=== PATIENT | male | born 1930 | race Caucasian/White ===

== ENCOUNTER 2016-07-27 14:38 | Outpatient (CLI) | payer MEDICARE, BC | END 2016-07-27 14:39 | disposition home or self-care (01) | DX: I48.91 Unspecified atrial fibrillation (principal) ==

== ENCOUNTER 2016-08-17 16:06 | Outpatient (CLI) | payer MEDICARE, BC | END 2016-08-17 16:07 | disposition home or self-care (01) | DX: I48.91 Unspecified atrial fibrillation (principal) ==

== ENCOUNTER 2016-09-06 15:29 | Outpatient (CLI) | payer MEDICARE, BC | END 2016-09-06 15:30 | disposition home or self-care (01) | DX: I48.91 Unspecified atrial fibrillation (principal) ==

== ENCOUNTER 2016-09-28 13:36 | Outpatient (CLI) | payer MEDICARE, BC | END 2016-09-28 13:37 | disposition home or self-care (01) | DX: I48.91 Unspecified atrial fibrillation (principal) ==

== ENCOUNTER 2016-10-12 08:00 | Outpatient (CLI) | payer MEDICARE, BC | END 2016-10-12 08:01 | disposition home or self-care (01) | DX: I48.91 Unspecified atrial fibrillation (principal) ==

== ENCOUNTER 2016-11-05 14:25 | Outpatient (CLI) | payer MEDICARE, BC | END 2016-11-05 14:26 | disposition home or self-care (01) | DX: I48.91 Unspecified atrial fibrillation (principal) ==

== ENCOUNTER 2016-11-27 12:25 | Outpatient (CLI) | payer MEDICARE, BC | END 2016-11-27 12:26 | disposition home or self-care (01) | LOC: LAB 12:25 | PROVIDERS: ATTEND Pharmacist | DX: I48.91 Unspecified atrial fibrillation (principal) | CPT/HCPCS: 85610 ==

== ENCOUNTER 2016-12-17 13:42 | Outpatient (CLI) | payer MEDICARE, BC | END 2016-12-17 13:43 | disposition home or self-care (01) | LOC: LAB 13:42 | PROVIDERS: ATTEND Pharmacist | DX: I48.91 Unspecified atrial fibrillation (principal) | CPT/HCPCS: 85610 ==

== ENCOUNTER 2017-01-02 14:26 | Outpatient (CLI) | payer MEDICARE, BC | END 2017-01-02 14:27 | disposition home or self-care (01) | LOC: LAB 14:26 | PROVIDERS: ATTEND Pharmacist | DX: I48.91 Unspecified atrial fibrillation (principal) | CPT/HCPCS: 85610 ==

== ENCOUNTER 2017-01-17 13:20 | Outpatient (CLI) | payer MEDICARE, BC | END 2017-01-17 13:21 | disposition home or self-care (01) | LOC: LAB 13:20 | PROVIDERS: ATTEND Pharmacist | DX: I48.91 Unspecified atrial fibrillation (principal) | CPT/HCPCS: 85610 ==

== ENCOUNTER 2017-05-30 15:06 | Outpatient (CLI) | payer MEDICARE, BC | END 2017-05-30 15:07 | disposition home or self-care (01) | LOC: LAB 15:06 | PROVIDERS: ATTEND Pharmacist | DX: I48.91 Unspecified atrial fibrillation (principal) | CPT/HCPCS: 85610 ==

== ENCOUNTER 2017-07-09 13:01 | Outpatient (CLI) | payer MEDICARE, BC | END 2017-07-09 13:02 | disposition home or self-care (01) | LOC: LAB 13:01 | PROVIDERS: ATTEND Pharmacist | DX: I48.91 Unspecified atrial fibrillation (principal) | CPT/HCPCS: 85610 ==

== ENCOUNTER 2017-07-26 13:02 | Outpatient (CLI) | payer MEDICARE, BC | END 2017-07-26 13:03 | disposition home or self-care (01) | LOC: LAB 13:02 | PROVIDERS: ATTEND Pharmacist | DX: I48.91 Unspecified atrial fibrillation (principal) | CPT/HCPCS: 85610 ==

== ENCOUNTER 2017-08-20 14:49 | Outpatient (CLI) | payer MEDICARE, BC ==
[2017-08-20 15:54] LABS: ALBUMIN 3.7 g/dL (3.2-5.5); ALBUMIN/GLOBULIN RATIO 1.5 (1.0-2.2); ALKALINE PHOSPHATASE 63 IU/L (42-121); ALT ALANINE AMINOTRANSFERASE 17 IU/L (10-60); AST ASPARTATE AMINOTRANSFERASE 25 IU/L (10-42); BILIRUBIN,TOTAL 0.7 mg/dL (0.2-1.0); BUN - BLOOD UREA NITROGEN 26 mg/dL (6-20); CALCIUM 8.8 mg/dL (8.5-10.3); CARBON DIOXIDE - CO2 26 mmol/L (21-32); CHLORIDE 101 mmol/L (101-111); CHOL/HDL RATIO 2.9 (<5.0); CHOLESTEROL 134 mg/dL; CREATININE 0.9 mg/dL (0.6-1.2); GFR - MDRD 80 (>89); GLUCOSE 93 mg/dL (70-100); HDL CHOLESTEROL 46 mg/dL; SODIUM 136 mmol/L (135-145); TOTAL PROTEIN 6.1 g/dL (6.7-8.2)
[2017-08-20 16:14] LABS: INR 4.4 (0.8-1.2); PT - PROTHROMBIN TIME 46.5 secs (9.9-12.6)
[2017-08-20 16:16] LABS: BASOPHILS % (AUTO) 0.6 %; EOSINOPHILS # (AUTO) 0.1 10^3/uL (0.0-0.7); EOSINOPHILS % (AUTO) 0.9 %; HGB - HEMOGLOBIN 13.1 g/dL (14.0-18.0); LYMPHOCYTES # (AUTO) 1.8 10^3/uL (1.5-3.5); LYMPHOCYTES % (AUTO) 27.6 %; MEAN CORPUSCULAR HEMOGLOBIN 34.8 pg (27.0-31.0); MEAN CORPUSCULAR HGB CONC 33.9 g/dL (32.0-36.0); MEAN CORPUSCULAR VOLUME 102.7 fL (80.0-94.0); MONOCYTES # (AUTO) 0.5 10^3/uL (0.0-1.0); MONOCYTES % (AUTO) 8.1 %; NEUTROPHILS % (AUTO) 62.8 %; PLT - PLATELET COUNT 187 10^3/uL (130-450); RED BLOOD COUNT 3.75 10^6/uL (4.70-6.10); RED CELL DISTRIBUTION WIDTH 13.9 % (12.0-15.0); WHITE BLOOD COUNT 6.4 x10^3/uL (4.8-10.8)
[2017-08-20 16:18] LABS: LDL CHOLESTEROL,DIRECT 84 mg/dL; LDLD/HDL RATIO 1.8 (<3.6)
[2017-08-20 16:58] LABS: PLATELET ESTIMATE, MANUAL NORMAL (130-450,000) (NORMAL); RBC MORPHOLOGY (MULTIPLE) NORMAL APPEARANCE (NORMAL)
== END 2017-08-20 14:50 | disposition home or self-care (01) ==
LOC: LAB 14:49
PROVIDERS: ATTEND Pharmacist
DX: I48.91 Unspecified atrial fibrillation (principal); E78.5 Hyperlipidemia, unspecified
CPT/HCPCS: 36415; 80053; 80061; 83721; 84443; 85025; 85610

== ENCOUNTER 2017-09-05 14:49 | Outpatient (CLI) | payer MEDICARE, BC | END 2017-09-05 14:50 | disposition home or self-care (01) | LOC: LAB 14:49 | PROVIDERS: ATTEND Pharmacist | DX: I48.91 Unspecified atrial fibrillation (principal) | CPT/HCPCS: 85610 ==

== ENCOUNTER 2017-09-16 12:19 | Outpatient (CLI) | payer MEDICARE, BC | END 2017-09-16 12:20 | disposition EMS.NT | LOC: EMS 12:19 | PROVIDERS: ATTEND Surgery | DX: Z03.89 Encounter for observation for other suspected diseases and conditions ruled out (principal); W18.39XA Other fall on same level, initial encounter; Y92.009 Unspecified place in unspecified non-institutional (private) residence as the place of occurrence of the external cause ==

== ENCOUNTER 2017-09-17 17:20 | Outpatient (CLI) | payer MEDICARE, BC | END 2017-09-17 17:21 | disposition critical access hospital (66) | LOC: EMS 17:20 | PROVIDERS: ATTEND Surgery | DX: R05 Cough (principal); R50.9 Fever, unspecified | CPT/HCPCS: A0425; A0429 ==

== ENCOUNTER 2017-09-17 17:31 | Inpatient (IN) | payer MEDICARE, BC ==
--- NOTE | 2017-09-17 17:51 | ED Physician Documentation ---
PD HPI URI - Stated complaint Stated Complaint: PHLEGM - Chief complaint Chief Complaint: Resp - History obtained from History obtained from: Patient, EMS - History of Present Illness Timing - onset: How many days ago (4-5) Timing duration: Days (4-5) Timing details: Gradual onset, Still present Associated symptoms: Fever, Productive cough, NVD (nausea and less intake, but no vomiting nor diarrhea), Other (general weakness with falling). No: Hemoptysis, Bilateral edema Contributing factors: No: Sick contact, Travel, Immunocompromised, COPD / asthma Improves by: Rest Worsened by: Activity Similar symptoms before: Has not had sx before Recently seen: Not recently seen Review of Systems Constitutional: reports: Fever, Chills, Myalgias, Fatigue Eyes: denies: Decreased vision Nose: denies: Rhinorrhea / runny nose, Congestion Throat: denies: Sore throat Cardiac: denies: Chest pain / pressure Respiratory: reports: Dyspnea, Cough, Wheezing GI: reports: Nausea. denies: Abdominal Pain, Vomiting, Diarrhea : denies: Dysuria, Frequency Skin: reports: Abrasion (s) (left eyebrow) Neurologic: reports: Generalized weakness (resulting in falling several times the past few days.), Near syncope, Confused (at times), Head injury (fell from weakness and struck head a few times in past few days). denies: Focal weakness , Numbness, Syncope, Altered mental status Endocrine: denies: Weight loss Immunocompromised: denies: Immunocompromised PD PAST MEDICAL HISTORY - Past Medical History Cardiovascular: Atrial fibrillation Respiratory: None Neuro: None Endocrine/Autoimmune: None : Benign prostate hypertrophy - Past Surgical History Past Surgical History: Yes Cardiovascular: Pacemaker - Present Medications Home Medications: Ambulatory Orders Medication Instructions Recorded Confirmed Tamsulosin [Flomax] 0.4 mg PO DAILY 06/08/13 06/08/13 Warfarin Sodium [Coumadin] 2.5 mg PO 06/08/13 06/08/13 Finasteride 0 mg 04/06/16 - Allergies Allergies/Adverse Reactions: Allergies Allergy/AdvReac Type Severity Reaction Status Date / Time No Known Drug Allergies Allergy Verified 09/17/17 17:36 - Living Situation Living Situation: reports: With spouse/s.o. Living Arrangement: reports: At home (he does his own ADLs, goes shopping, pushes his 's wheelchair around, is quite capable at home. ) - Social History Does the pt smoke?: No Smoking Status: Never smoker Does the pt drink ETOH?: No Does the pt have substance abuse?: No - Family History Family history: reports: Non contributory - Immunizations Immunizations are current?: Yes PD ED PE NORMAL - Vitals Vital signs reviewed: Yes - General General: Alert and oriented X 3, Well developed/nourished - HEENT HEENT: Ears normal, Pharynx benign, Other (abrasion left eyebrow area, healing without signs of infection. ). No: Moist mucous membranes - Neck Neck: Supple, no meningeal sign, No adenopathy - Cardiac Cardiac: RRR, No murmur, Other (pacemaker noted left chest) - Respiratory Respiratory: No: Clear bilaterally (coarse sounds right side. Mild exp wheezing noted. ) - Abdomen Abdomen: Normal bowel sounds, Soft, Non tender - Male Male : Deferred - Rectal Rectal: Deferred - Back Back: No CVA TTP - Derm Derm: Warm and dry. 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, No motor deficit, Normal speech Eye Opening: To Voice Motor: Obeys Commands Verbal: Oriented GCS Score: 14 - Psych Psych: No: Normal affect (somewhat flat) Results - Vitals Vitals: Vital Signs - 24 hr 09/17/17 09/17/17 09/17/17 17:33 19:35 20:18 Temperature 37.3 C 37.2 C Heart Rate 63 62 63 Respiratory 20 16 20 Rate Blood Pressure 131/71 H 139/74 H O2 Saturation 96 99 Oxygen O2 Source Room air - Labs Labs: Microbiology 09/17/17 19:40 Respiratory Culture - Preliminary Sputum Laboratory Tests 09/17/17 09/17/17 09/17/17 19:05 19:05 19:05 WBC 10.3 RBC 3.81 L Hgb 13.4 L Hct 38.7 L MCV 101.6 H MCH 35.1 H MCHC 34.6 RDW 14.1 Plt Count 173 MPV 8.8 Neut # 9.4 H Lymph # 0.3 L Callahan # 0.5 Eos # 0.0 Baso # 0.0 Absolute Nucleated RBC 0.00 Nucleated RBC % 0.0 PT 26.2 H INR 2.4 H Sodium 127 L Potassium 4.7 Chloride 93 L Carbon Dioxide 24 Anion Gap 10.0 BUN 22 H Creatinine 0.8 Estimated GFR (MDRD) 92 Glucose 153 H Lactic Acid Calcium 8.7 Magnesium 2.0 Total Bilirubin 0.5 AST 79 H ALT 50 Alkaline Phosphatase 47 B-Natriuretic Peptide Total Protein 6.5 L Albumin 3.3 Globulin 3.2 Albumin/Globulin Ratio 1.0 Lipase 22 Influenza A (Rapid) Influenza B (Rapid) Influenza Types A,B Ag 09/17/17 09/17/17 09/17/17 19:05 19:05 19:30 WBC RBC Hgb Hct MCV MCH MCHC RDW Plt Count MPV Neut # Lymph # Callahan # Eos # Baso # Absolute Nucleated RBC Nucleated RBC % PT INR Sodium Potassium Chloride Carbon Dioxide Anion Gap BUN Creatinine Estimated GFR (MDRD) Glucose Lactic Acid 1.3 Calcium Magnesium Total Bilirubin AST ALT Alkaline Phosphatase B-Natriuretic Peptide 545 H Total Protein Albumin Globulin Albumin/Globulin Ratio Lipase Influenza A (Rapid) Negative Influenza B (Rapid) Negative Influenza Types A,B Ag - - Rads (name of study) chest xray Radiology: Prelim report reviewed, EMP read contemporaneously (right upper lobe consolidation c/w pneumonia. No effusion. No signs of failure. ) PD MEDICAL DECISION MAKING - ED course Complexity details: reviewed results, re-evaluated patient (improved color and a bit more animated after IV fluids and neb. However still generally weak and appears to be work to just sit up in bed. Sats are good. BP is good. ), considered differential, d/w patient, d/w organizational research consultant (Hospitalist) Departure - Departure Disposition: 66 [facility] DC/Xfer Clinical Impression: Weakness generalized, Dehydration, Anticoagulant long-term use Falls Qualifiers: Encounter type: initial encounter Qualified Code(s): W19.XXXA - Unspecified fall, initial encounter Pneumonia Qualifiers: Pneumonia type: due to unspecified organism Laterality: right Lung location: upper lobe of lung Qualified Code(s): J18.1 - Lobar pneumonia, unspecified organism
[2017-09-17] MEDS ORDERED: SODIUM CHLORIDE 0.9% 1,000 ML IV ONE ×3 (18:51→20:01)
[2017-09-17] MEDS ORDERED: ONDANSETRON 4 MG/2 ML VIAL IVP STA (18:51)
[2017-09-17] MEDS ORDERED: ALBUTEROL NEB 2.5 MG/3 ML INH STA (18:53)
[2017-09-17 19:18] LABS: INR 2.4 (0.8-1.2); PT - PROTHROMBIN TIME 26.2 secs (9.9-12.6)
[2017-09-17 19:19] LABS: HGB - HEMOGLOBIN 13.4 g/dL (14.0-18.0); LYMPHOCYTES # (AUTO) 0.3 10^3/uL (1.5-3.5); LYMPHOCYTES % (AUTO) 3.1 %; MEAN CORPUSCULAR HEMOGLOBIN 35.1 pg (27.0-31.0); MEAN CORPUSCULAR HGB CONC 34.6 g/dL (32.0-36.0); MEAN CORPUSCULAR VOLUME 101.6 fL (80.0-94.0); MEAN PLATELET VOLUME 8.8 fL (7.4-11.4); MONOCYTES # (AUTO) 0.5 10^3/uL (0.0-1.0); MONOCYTES % (AUTO) 5.2 %; NEUTROPHILS # (AUTO) 9.4 10^3/uL (1.5-6.6); NEUTROPHILS % (AUTO) 91.7 %; PLT - PLATELET COUNT 173 10^3/uL (130-450); RED BLOOD COUNT 3.81 10^6/uL (4.70-6.10); RED CELL DISTRIBUTION WIDTH 14.1 % (12.0-15.0); WHITE BLOOD COUNT 10.3 x10^3/uL (4.8-10.8)
[2017-09-17 19:22] LABS: ALBUMIN 3.3 g/dL (3.2-5.5); BILIRUBIN,TOTAL 0.5 mg/dL (0.2-1.0); CALCIUM 8.7 mg/dL (8.5-10.3); CREATININE 0.8 mg/dL (0.6-1.2); TOTAL PROTEIN 6.5 g/dL (6.7-8.2)
--- NOTE | 2017-09-17 19:43 | XRAY Report ---
EXAM: CHEST RADIOGRAPHY EXAM DATE: 09/17/2017 07:30 PM. CLINICAL HISTORY: Cough and fever. COMPARISON: 06/19/2016. TECHNIQUE: 2 views. FINDINGS: Lungs/Pleura: Prominent infiltration in the right upper lobe. Otherwise clear. No effusion or pneumot horax. Mediastinum: Normal heart size, unchanged. Masslike fullness of right hilum. 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 Scoliosis with degenerative changes. IMPRESSION: 1. Right upper lobe infiltrate. 2. Right hilar fullness; this may be secondary to adjacent pneumonia with lymphadenitis. Follow-up is recommended to confirm resolution and exclude other underlying lesions. [facility] Referring Provider Line: [phone] SITE ID: [id number]
[2017-09-17] MEDS ORDERED: AZITHROMYCIN INJ 500 MG in SODIUM CHLORIDE 0.9% 250 ML IV STA (19:45)
[2017-09-17] MEDS ORDERED: cefTRIAXone 1 GM VIAL IVP STA (19:45)
--- NOTE | 2017-09-17 19:53 | CT Preliminary Report ---
Exam: CT HEAD W/O IMPRESSION: Generalized age-related cortical atrophic changes without evidence of acute intracranial abnormality. [facility] SITE ID: [id number]
--- NOTE | 2017-09-17 19:55 | CT Report ---
EXAM: CT HEAD EXAM DATE: 09/17/2017 07:26 PM. CLINICAL HISTORY: Multiple falls over the last 5 days. Posterior head trauma. Headache. Patient is on Coumadin. COMPARISON: None. TECHNIQUE: Multiaxial CT images were obtained from the foramen magnum to the vertex. Reformats: Coron al. IV contrast: None. In accordance with CT protocol optimization, one or more of the following dose reduction techniques w ere utilized for this exam: automated exposure control, adjustment of mA and/or KV based on patient s ize, or use of iterative reconstructive technique. FINDINGS: Parenchyma: No intraparenchymal hemorrhage. No evidence of mass, midline shift, or CT findings of acu te infarction. Pacheco-white differentiation is distinct. Diffuse chronic microangiopathic white matter changes are evident. Extraaxial Spaces: Normal for age. No subdural or epidural collections identified. Ventricles: The ventricles and cortical sulci are enlarged, consistent with age-related tissue loss. Sinuses and orbits: Imaged paranasal sinuses, orbits, and mastoids show no significant abnormality. Bones: No evidence of fracture or calvarial defect. Other: None. IMPRESSION: Generalized age-related cortical atrophic changes without evidence of acute intracranial abnormality. [facility] Referring Provider Line: [phone] SITE ID: [id number]
[2017-09-17] MEDS ORDERED: MORPHINE 2 MG/ML CARPUJECT IVP PRN (20:45)
[2017-09-17] MEDS ORDERED: ONDANSETRON ODT 4 MG TABLET TL PRN (20:45)
[2017-09-17] MEDS ORDERED: ACETAMINOPHEN 325 MG TABLET PO PRN (20:45)
[2017-09-17] MEDS ORDERED: SODIUM CHLORIDE FLUSH 0.9% 10 ML SYRINGE IVP PRN (20:45)
[2017-09-17] MEDS ORDERED: TEMAZEPAM 15 MG CAPSULE PO PRN (20:45)
[2017-09-17] MEDS ORDERED: ALBUTEROL NEB 2.5 MG/3 ML INH PRN (22:52)
[2017-09-17] MEDS: SODIUM CHLORIDE 0.9% 1,000 ML IV SCH (23:02)
[2017-09-17] MEDS: TAMSULOSIN 0.4 MG CAPSULE PO SCH (23:02)
--- NOTE | 2017-09-17 23:16 | HISTORY & PHYSICAL EXAMINATION ---
DATE OF SERVICE: 09/17/2017 Physician: Edna Jeffers MD HISTORY OF PRESENT ILLNESS: This is an 86-year-old white male with a past medical history of BPH and chronic atrial fibrillation on Coumadin. The patient presents with 3-4 days of worsening weakness, frequent falls from dizziness and leg weakness but no syncope, a productive cough with occasional brown sputum, but no hemoptysis, a fever, with chills and myalgias, also shortness of breath with activity. The gives most of the history. The patient is lying supine in bed and does answer quickly and appropriately, but with brief answers. The remembers that one of his falls from several days ago caused him to have pain in the left hip and left knee. Another fall when he was standing in the bathtub, caused him to scrape his entire back as he was falling down against the wall. He has been compliant with his medications. 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 The patient has been unable to move her in the wheelchair and unable to drive. In the emergency room, he was found to have dehydration, hyponatremia, a significant infiltrate on chest x -ray and is being admitted for management of these. PAST MEDICAL HISTORY: BPH, chronic atrial fibrillation on Coumadin. REVIEW OF SYSTEMS: A comprehensive review of systems was performed and the pertinent positives are in the HPI, the rest are negative. FAMILY HISTORY: No inherited diseases. SOCIAL HISTORY: The patient is a nonsmoker, who never smoked, drinks no alcohol or use any drugs. 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 PHYSICAL EXAMINATION GENERAL: Cachectic white male. His eyes are closed, but he answers questions appropriately. He appears fatigued. He appears dehydrated and tired. He has poor oral dentition. VITAL SIGNS: Blood pressure 131/70, heart rate 63 in atrial fibrillation, afebrile, room air saturation 96%. HEENT: Reveals him to be disheveled. Temporal wasting is present. Oral mucosa is dry. Dentition is poor. NECK: Shows no JVD, no carotid bruits. CHEST: Good air entry diffusely without rales or rhonchi. HEART: Sounds have a 1-2/6 systolic murmur heard at the lower left sternal border. There is no RV heave. There is no gallop. ABDOMEN: Soft, scaphoid, nontender with normal bowel sounds. EXTREMITIES: Show no clubbing, cyanosis or edema. He has multiple ecchymoses over all 4 extremities. The skin is tenting. The back was not examined regarding the scrape. NEUROLOGIC: Grossly intact. LABORATORY DATA: Sodium 127, potassium 4.7, BUN 22, creatinine 0.8. Lactic acid 1.3, magnesium 2.0, AST 79, ALT 50, bilirubin normal, alkaline phosphatase normal. Troponin not detectable. BNP 545. INR 2.4. White blood count 10.3 with a left shift, hemoglobin 13.4 with an MCV of 101 and he has been running MCVs over 100 for several years. Platelet count normal at 173. Serology was negative for influenza A and B. No urinalysis was done. No EKG was done. Chest x-ray: Right upper lobe infiltrate and fullness of the right hilum and a permanent pacemaker is seen on the left side. The spine has scoliosis and degenerative changes. IMPRESSION/DIAGNOSES 1. Community-acquired pneumonia. 2. Weakness with anorexia and nausea. 3. Frequent falls with multiple ecchymoses plus left hip and left knee pain. 4. Chronic atrial fibrillation, on Coumadin with a pacemaker for backup. 5. Anemia with elevated MCV. 6. Benign prostatic hypertrophy history. 7. Abnormal chest x-ray with right hilar fullness. PLAN: Admit the patient. Begin telemetry to rule out arrhythmia or pacemaker dysfunction as the cause of the weakness or falls. Cycle troponins. Obtain an Echo. Obtain an EKG. Do blood cultures and sputum culture and also will add urinalysis with culture. Start the patient on antibiotics to cover a community-acquired pneumonia: Ceftriaxone and Zithromax. Hydrate with saline and follow his electrolytes, BUN and creatinine, BNP. Obtain B12 and folate levels regarding the high MCV anemia. Guaiac his stools. Continue his BPH meds and Coumadin, follow daily INRs while admitted. XRay his left hip and left knee. Deep venous thromboembolism prophylaxis: The patient is already anticoagulated on Coumadin with a therapeutic INR. CODE STATUS: FULL CODE. ATTESTATION: The patient is expected to be discharged or transferred to another facility within 96 hours: Yes. TD: 09/17/2017 23:15 [facility]
[2017-09-17] MEDS ORDERED: KETOROLAC 15 MG/ML VIAL IVP SCH (23:18)
[2017-09-18] MEDS: guaiFENesin 600 MG TABLET PO SCH ×3 (00:09→20:04)
[2017-09-18] MEDS: SODIUM CHLORIDE FLUSH 0.9% 10 ML SYRINGE IVP SCH ×4 (00:10→23:44)
--- NOTE | 2017-09-18 00:23 | XRAY Report ---
EXAM: LEFT HIP AND PELVIS RADIOGRAPHY EXAM DATE: 09/18/2017 12:06 AM. HISTORY: S/P fall, eval for fracture. COMPARISONS: None. TECHNIQUE: 1 view of the pelvis and 1 view of the hip. FINDINGS: Bones: Normal. No fracture or bone lesion. Joints: Mild bilateral hip joint space narrowing slightly greater on the right. No dislocation. Soft Tissues: Normal. No soft tissue swelling. IMPRESSION: No evidence of fracture or dislocation. Mild bilateral degenerative changes. [facility] Referring Provider Line: [phone] SITE ID: [id number]
--- NOTE | 2017-09-18 00:23 | XRAY Preliminary Report ---
Exam: XR HIP W/PELVIS 2-3V LT IMPRESSION: No evidence of fracture or dislocation. Mild bilateral degenerative changes. [facility] SITE ID: [id number]
--- NOTE | 2017-09-18 00:55 | XRAY Preliminary Report ---
Exam: XR KNEE 2 VIEW LT IMPRESSION: No evidence of fracture. [facility] SITE ID: [id number]
--- NOTE | 2017-09-18 00:55 | XRAY Report ---
EXAM: LEFT KNEE RADIOGRAPHY EXAM DATE: 09/18/2017 12:05 AM. CLINICAL HISTORY: S/P fall, eval for fracture. COMPARISON: None. TECHNIQUE: 2 views. FINDINGS: Bones: Normal. No fractures or bone lesions. Joints: Normal. No effusion. No subluxations. Soft Tissues: Normal. No soft tissue swelling. IMPRESSION: No evidence of fracture. [facility] Referring Provider Line: [phone] SITE ID: [id number]
[2017-09-18 06:32] LABS: BASOPHILS % (AUTO) 0.2 %; HGB - HEMOGLOBIN 12.3 g/dL (14.0-18.0); LYMPHOCYTES # (AUTO) 0.6 10^3/uL (1.5-3.5); LYMPHOCYTES % (AUTO) 6.8 %; MEAN CORPUSCULAR HEMOGLOBIN 34.6 pg (27.0-31.0); MEAN CORPUSCULAR HGB CONC 33.9 g/dL (32.0-36.0); MEAN CORPUSCULAR VOLUME 102.1 fL (80.0-94.0); MONOCYTES # (AUTO) 0.5 10^3/uL (0.0-1.0); MONOCYTES % (AUTO) 6.5 %; NEUTROPHILS # (AUTO) 7.1 10^3/uL (1.5-6.6); NEUTROPHILS % (AUTO) 86.5 %; PLT - PLATELET COUNT 166 10^3/uL (130-450); RED BLOOD COUNT 3.55 10^6/uL (4.70-6.10); WHITE BLOOD COUNT 8.2 x10^3/uL (4.8-10.8)
[2017-09-18 06:33] LABS: INR 2.4 (0.8-1.2); PT - PROTHROMBIN TIME 25.8 secs (9.9-12.6)
[2017-09-18 06:38] LABS: CALCIUM 7.9 mg/dL (8.5-10.3); CREATININE 0.8 mg/dL (0.6-1.2)
[2017-09-18 07:05] LABS: PLATELET ESTIMATE, MANUAL NORMAL (130-450,000) (NORMAL); PLATELET MORPHOLOGY 1+ LARGE PLATELETS (NORMAL); RBC MORPHOLOGY (MULTIPLE) NORMAL APPEARANCE (NORMAL)
[2017-09-18] MEDS: FAMOTIDINE 20 MG TABLET PO SCH (08:38)
[2017-09-18] MEDS: POLYETHYLENE GLYCOL 3350 17 GM PACKET PO SCH (08:38)
--- NOTE | 2017-09-18 09:25 | PROVIDER PROGRESS NOTE ---
Subjective - Prog Note Date Prog Note Date: 09/18/17 Prog Note Time: 09:25 - Subjective Pt reports feeling: No change Subjective: Patient is still confused and does not call for help to use the restroom. He denies SOB, chest pain, N/V or a new cough. Current Medications - Current Medications Current Medications: Active Medications Acetaminophen (Tylenol) 650 mg PO Q4HR PRN PRN Reason: Pain or Fever > 38C (100.4F) Last Admin: 09/18/17 00:21 Dose: 650 mg Albuterol () 2.5 mg INH RTQ4H PRN PRN Reason: Wheezing Famotidine (Pepcid) 20 mg PO DAILY [facility] Last Admin: 09/19/17 08:28 Dose: 20 mg Finasteride (Proscar) 5 mg PO QPM [facility] Last Admin: 09/18/17 20:04 Dose: 5 mg Guaifenesin (Mucinex) 600 mg PO BID [facility] Last Admin: 09/19/17 08:28 Dose: 600 mg Sodium Chloride (Normal Saline 0.9%) 1,000 mls @ 100 mls/hr IV .Q10H [facility] Last Admin: 09/19/17 14:32 Dose: 100 mls/hr Ceftriaxone Sodium 1 gm/ (Sodium Chloride) 100 mls @ 200 mls/hr IV Q24H [facility] Last Infusion: 09/18/17 22:05 Dose: Infused Azithromycin 500 mg/ Sodium (Chloride) 250 mls @ 250 mls/hr IV Q24H [facility] Last Infusion: 09/18/17 20:56 Dose: Infused Morphine Sulfate (Morphine) 2 mg IVP Q2HR PRN PRN Reason: Dyspnea Ondansetron HCl (Zofran Odt) 4 mg TL Q6HR PRN PRN Reason: Nausea / Vomiting Polyethylene Glycol (Miralax) 17 gm PO DAILY [facility] Last Admin: 09/19/17 08:28 Dose: 17 gm Sodium Chloride (Normal Saline Flush 0.9%) 10 ml IVP PRN PRN PRN Reason: NEEDED PER PROVIDER ORDERS Sodium Chloride (Normal Saline Flush 0.9%) 10 ml IVP 0100,0900,1700 [facility] Last Admin: 09/19/17 08:30 Dose: Not Given Tamsulosin HCl (Flomax) 0.4 mg PO QPM [facility] Last Admin: 09/18/17 20:04 Dose: 0.4 mg Temazepam (Restoril) 15 mg PO QPM PRN PRN Reason: Insomnia Warfarin Sodium (Coumadin) 2.5 mg PO QPM [facility] Last Admin: 09/18/17 20:04 Dose: 2.5 mg Tamsulosin [Flomax] 0.4 mg PO QPM 06/08/13 Warfarin Sodium [Coumadin] 2.5 mg PO QPM 06/08/13 Finasteride 5 mg PO QPM 04/06/16 Objective - Vital Signs/Intake & Output Reviewed Vital Signs: Yes Vital Signs: Vital Signs x48h Temp Pulse Resp BP Pulse Ox 09/18/17 07:57 36.7 C 60 16 109/62 94 09/18/17 04:00 36.9 C 60 16 102/49 L 95 Intake & Output: Intake & Output 09/15/17 09/16/17 09/17/17 09/18/17 23:59 23:59 23:59 23:59 Intake Total 300 350 Balance 300 350 - Objective General Appearance: positive: Alert, Moderate distress, Lethargic Eyes Bilateral: positive: Normal inspection, PERRL ENT: positive: ENT inspection nml, Pharynx nml Neck: positive: Nml inspection, Thyroid nml, No JVD Respiratory: positive: Chest non-tender, No respiratory distress, Wheezes, Rhonchi Cardiovascular: positive: No gallop, Irregularly irregular, Systolic murmur, Decreased pulse(s) Peripheral Pulses: 1+ Radial (R), 1+ Radial (L) Abdomen: positive: Non-tender, Nml bowel sounds Back: positive: Nml inspection Skin: positive: No rash, Warm, Dry Extremities: positive: Non-tender, Full ROM, Nml appearance, No pedal edema, Joint swelling Neurologic/Psychiatric: positive: Disoriented to place, Disoriented to time, Weakness, Sensory loss, Depressed mood/affect Reflexes: Bicep (R): 2+, Bicep (L): 2+ - Lab Results Fish Bones: 09/18/17 06:07 09/18/17 06:07 Other Labs: Lab Results x24hrs 09/18/17 09/18/17 09/18/17 Range/Units 06:07 06:07 06:07 WBC (4.8-10.8) x10^3/uL RBC (4.70-6.10) 10^6/uL Hgb (14.0-18.0) g/dL Hct (42.0-52.0) % MCV (80.0-94.0) fL MCH (27.0-31.0) pg MCHC (32.0-36.0) g/dL RDW (12.0-15.0) % Plt Count (130-450) 10^3/uL MPV (7.4-11.4) fL Neut # (1.5-6.6) 10^3/uL Lymph # (1.5-3.5) 10^3/uL Banks # (0.0-1.0) 10^3/uL Eos # (0.0-0.7) 10^3/uL Baso # (0.0-0.1) 10^3/uL Absolute Nucleated RBC x10^3/uL Nucleated RBC % /100WBC Manual Slide Review Platelet Estimate (NORMAL) Platelet Morphology (NORMAL) RBC Morph Micro Appear (NORMAL) PT (9.9-12.6) secs INR (0.8-1.2) Sodium 129 L (135-145) mmol/L Potassium 4.3 (3.5-5.0) mmol/L Chloride 100 L (101-111) mmol/L Carbon Dioxide 22 (21-32) mmol/L Anion Gap 7.0 (6-13) BUN 24 H (6-20) mg/dL Creatinine 0.8 (0.6-1.2) mg/dL Estimated GFR (MDRD) 92 (>89) Glucose 128 H (70-100) mg/dL Calcium 7.9 L (8.5-10.3) mg/dL Troponin I (<0.49) ng/mL Vitamin B12 1075 H (180-914) pg/mL Folate 21.20 (5.90 - >24.8) ng/mL 09/18/17 09/18/17 09/18/17 Range/Units 06:07 06:07 05:22 WBC 8.2 (4.8-10.8) x10^3/uL RBC 3.55 L (4.70-6.10) 10^6/uL Hgb 12.3 L (14.0-18.0) g/dL Hct 36.2 L (42.0-52.0) % MCV 102.1 H (80.0-94.0) fL MCH 34.6 H (27.0-31.0) pg MCHC 33.9 (32.0-36.0) g/dL RDW 14.0 (12.0-15.0) % Plt Count 166 (130-450) 10^3/uL MPV 9.0 (7.4-11.4) fL Neut # 7.1 H (1.5-6.6) 10^3/uL Lymph # 0.6 L (1.5-3.5) 10^3/uL Banks # 0.5 (0.0-1.0) 10^3/uL Eos # 0.0 (0.0-0.7) 10^3/uL Baso # 0.0 (0.0-0.1) 10^3/uL Absolute Nucleated RBC 0.00 x10^3/uL Nucleated RBC % 0.0 /100WBC Manual Slide Review Indicated Platelet Estimate NORMAL (130-450,000) (NORMAL) Platelet Morphology 1+ LARGE PLATELETS (NORMAL) RBC Morph Micro Appear NORMAL APPEARANCE (NORMAL) PT 25.8 H (9.9-12.6) secs INR 2.4 H (0.8-1.2) Sodium (135-145) mmol/L Potassium (3.5-5.0) mmol/L Chloride (101-111) mmol/L Carbon Dioxide (21-32) mmol/L Anion Gap (6-13) BUN (6-20) mg/dL Creatinine (0.6-1.2) mg/dL Estimated GFR (MDRD) (>89) Glucose (70-100) mg/dL Calcium (8.5-10.3) mg/dL Troponin I < 0.04 (<0.49) ng/mL Vitamin B12 (180-914) pg/mL Folate (5.90 - >24.8) ng/mL 09/18/17 Range/Units 00:03 WBC (4.8-10.8) x10^3/uL RBC (4.70-6.10) 10^6/uL Hgb (14.0-18.0) g/dL Hct (42.0-52.0) % MCV (80.0-94.0) fL MCH (27.0-31.0) pg MCHC (32.0-36.0) g/dL RDW (12.0-15.0) % Plt Count (130-450) 10^3/uL MPV (7.4-11.4) fL Neut # (1.5-6.6) 10^3/uL Lymph # (1.5-3.5) 10^3/uL Banks # (0.0-1.0) 10^3/uL Eos # (0.0-0.7) 10^3/uL Baso # (0.0-0.1) 10^3/uL Absolute Nucleated RBC x10^3/uL Nucleated RBC % /100WBC Manual Slide Review Platelet Estimate (NORMAL) Platelet Morphology (NORMAL) RBC Morph Micro Appear (NORMAL) PT (9.9-12.6) secs INR (0.8-1.2) Sodium (135-145) mmol/L Potassium (3.5-5.0) mmol/L Chloride (101-111) mmol/L Carbon Dioxide (21-32) mmol/L Anion Gap (6-13) BUN (6-20) mg/dL Creatinine (0.6-1.2) mg/dL Estimated GFR (MDRD) (>89) Glucose (70-100) mg/dL Calcium (8.5-10.3) mg/dL Troponin I < 0.04 (<0.49) ng/mL Vitamin B12 (180-914) pg/mL Folate (5.90 - >24.8) ng/mL - Diagnostic Imaging Diagnostic Imaging Results: positive: Final report reviewed Assessment/Plan - Problem List (1) Anemia Impression: Patient has an H/H of 13.4/38.7 at the time of admission. Suspect anemia of chronic disease. Plan: Monitor daily labs, order iron studies. (2) BPH (benign prostatic hyperplasia) Impression: Patient has a history of this and takes Flomax and finasteride at home. Plan: periodic bladder scans, monitor I/O and continue medications. (3) CAP (community acquired pneumonia) Impression: The patient had a normal WBC count, weakness, confusion and has had recent weight loss. He is not requiring oxygen. Plan: Continue IV antibiotics and IV steroids. Qualifiers: Lung location: unspecified part of lung (4) Falls Impression: Patient is noted to have multiple scattered bruises, but no recent fractures. 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 Plan: PT evaluation, and fall precautions. Qualifiers: Encounter type: initial encounter Qualified Code(s): W19.XXXA - Unspecified fall, initial encounter (5) Weakness generalized Impression: Per , the patient has been profoundly weak for several days leading up to the admission. We will treat the underlying problem. Plan: Fall precautions and frequent nursing care.
[2017-09-18] MEDS: SODIUM CHLORIDE 0.9% 1,000 ML IV SCH ×2 (10:08→19:35)
[2017-09-18] MEDS ORDERED: MORPHINE 2 MG/ML SYRINGE IVP PRN (15:42)
[2017-09-18] MEDS: AZITHROMYCIN INJ 500 MG in SODIUM CHLORIDE 0.9% 250 ML IV SCH (19:35)
[2017-09-18] MEDS: FINASTERIDE 5 MG TABLET PO SCH (20:04)
[2017-09-18] MEDS: TAMSULOSIN 0.4 MG CAPSULE PO SCH (20:04)
[2017-09-18] MEDS: WARFARIN 2.5 MG TABLET PO SCH (20:04)
[2017-09-18] MEDS: cefTRIAXone 1 GM in SODIUM CHLORIDE 0.9% MINIBAG 100 ML IV SCH (21:03)
[2017-09-19] MEDS: SODIUM CHLORIDE 0.9% 1,000 ML IV SCH ×2 (07:30→14:32)
[2017-09-19 07:49] LABS: BILIRUBIN,URINE NEGATIVE (NEGATIVE); GLUCOSE, URINE (UA) NEGATIVE (NEGATIVE); KETONES,URINE (UA) NEGATIVE (NEGATIVE); LEUKOCYTE ESTERASE, URINE NEGATIVE (NEGATIVE); NITRITE,URINE NEGATIVE (NEGATIVE); OCCULT BLOOD,URINE LARGE (NEGATIVE); PH,URINE 5.5 PH (5.0-7.5); PROTEIN,URINE 30 mg/dL (NEGATIVE); UROBILINOGEN,URINE 0.2 (NORMAL) E.U./dL (NORMAL)
[2017-09-19 07:59] LABS: CLARITY,URINE SL. CLOUDY (CLEAR)
[2017-09-19 08:23] LABS: BACTERIA,URINE None Seen /HPF (None Seen); SQUAMOUS EPITHELIAL CELL,UR RARE Squamous (<= Few)
[2017-09-19] MEDS: guaiFENesin 600 MG TABLET PO SCH ×2 (08:28→20:58)
[2017-09-19] MEDS: POLYETHYLENE GLYCOL 3350 17 GM PACKET PO SCH (08:28)
[2017-09-19] MEDS: FAMOTIDINE 20 MG TABLET PO SCH (08:28)
[2017-09-19] MEDS: SODIUM CHLORIDE FLUSH 0.9% 10 ML SYRINGE IVP SCH ×2 (08:30→17:07)
--- NOTE | 2017-09-19 16:47 | PROVIDER PROGRESS NOTE ---
Subjective - Prog Note Date Prog Note Date: 09/19/17 Prog Note Time: 12:00 - Subjective Pt reports feeling: Improved Subjective: Patient's was present during his exam today and she states that she is concerned about how long he might be in the hospital. 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 He denies SOB, chest pain, N/V or a new cough. Patient was only A&O to self. Current Medications - Current Medications Current Medications: Active Medications Acetaminophen (Tylenol) 650 mg PO Q4HR PRN PRN Reason: Pain or Fever > 38C (100.4F) Last Admin: 09/18/17 00:21 Dose: 650 mg Albuterol () 2.5 mg INH RTQ4H PRN PRN Reason: Wheezing Famotidine (Pepcid) 20 mg PO DAILY [facility] Last Admin: 09/19/17 08:28 Dose: 20 mg Finasteride (Proscar) 5 mg PO QPM [facility] Last Admin: 09/18/17 20:04 Dose: 5 mg Guaifenesin (Mucinex) 600 mg PO BID [facility] Last Admin: 09/19/17 08:28 Dose: 600 mg Sodium Chloride (Normal Saline 0.9%) 1,000 mls @ 100 mls/hr IV .Q10H [facility] Last Admin: 09/19/17 14:32 Dose: 100 mls/hr Ceftriaxone Sodium 1 gm/ (Sodium Chloride) 100 mls @ 200 mls/hr IV Q24H [facility] Last Infusion: 09/18/17 22:05 Dose: Infused Azithromycin 500 mg/ Sodium (Chloride) 250 mls @ 250 mls/hr IV Q24H [facility] Last Infusion: 09/18/17 20:56 Dose: Infused Morphine Sulfate (Morphine) 2 mg IVP Q2HR PRN PRN Reason: Dyspnea Ondansetron HCl (Zofran Odt) 4 mg TL Q6HR PRN PRN Reason: Nausea / Vomiting Polyethylene Glycol (Miralax) 17 gm PO DAILY [facility] Last Admin: 09/19/17 08:28 Dose: 17 gm Sodium Chloride (Normal Saline Flush 0.9%) 10 ml IVP PRN PRN PRN Reason: NEEDED PER PROVIDER ORDERS Sodium Chloride (Normal Saline Flush 0.9%) 10 ml IVP 0100,0900,1700 [facility] Last Admin: 09/19/17 08:30 Dose: Not Given Tamsulosin HCl (Flomax) 0.4 mg PO QPM [facility] Last Admin: 09/18/17 20:04 Dose: 0.4 mg Temazepam (Restoril) 15 mg PO QPM PRN PRN Reason: Insomnia Warfarin Sodium (Coumadin) 2.5 mg PO QPM [facility] Last Admin: 09/18/17 20:04 Dose: 2.5 mg Tamsulosin [Flomax] 0.4 mg PO QPM 06/08/13 Warfarin Sodium [Coumadin] 2.5 mg PO QPM 06/08/13 Finasteride 5 mg PO QPM 04/06/16 Objective - Vital Signs/Intake & Output Reviewed Vital Signs: Yes Vital Signs: Vital Signs x48h Temp Pulse Resp BP Pulse Ox 09/19/17 15:45 37.2 C 64 24 148/73 H 96 09/19/17 12:51 37.2 C 60 20 143/75 H 98 Intake & Output: Intake & Output 09/16/17 09/17/17 09/18/17 09/19/17 23:59 23:59 23:59 23:59 Intake Total 300 3195 2283.333 Output Total 625 400 Balance 300 2570 1883.333 - Objective General Appearance: positive: No acute distress, Alert, Anxious Eyes Bilateral: positive: Normal inspection ENT: positive: ENT inspection nml, Pharynx nml, Dry mucous membranes Neck: positive: Nml inspection, Thyroid nml, No JVD, Stiff neck Respiratory: positive: Chest non-tender, No respiratory distress, Wheezes, Rhonchi Cardiovascular: positive: Regular rate & rhythm, No gallop, Systolic murmur, Decreased pulse(s) Peripheral Pulses: 2+ Radial (R), 2+ Radial (L) Abdomen: positive: Non-tender, Nml bowel sounds Back: positive: Nml inspection Skin: positive: No rash, Warm, Dry, Pallor Extremities: positive: Non-tender, Pedal edema, Joint swelling Neurologic/Psychiatric: positive: Disoriented to place, Disoriented to time, Weakness, Sensory loss, Depressed mood/affect Reflexes: Bicep (R): 2+, Bicep (L): 2+ - Lab Results Fish Bones: 09/18/17 06:07 09/18/17 06:07 Other Labs: Lab Results x24hrs 09/19/17 Range/Units 04:55 Urine Color YELLOW Urine Clarity SL. CLOUDY (CLEAR) Urine pH 5.5 (5.0-7.5) PH Ur Specific [place] 1.025 (1.002-1.030) Urine Protein 30 H (NEGATIVE) mg/dL Urine Glucose (UA) NEGATIVE (NEGATIVE) mg/dL Urine Ketones NEGATIVE (NEGATIVE) mg/dL Urine Occult Blood LARGE H (NEGATIVE) Urine Nitrite NEGATIVE (NEGATIVE) Urine Bilirubin NEGATIVE (NEGATIVE) Urine Urobilinogen 0.2 (NORMAL) (NORMAL) E.U./dL Ur Leukocyte Esterase NEGATIVE (NEGATIVE) Urine RBC 11-25 H (0-5) /HPF Urine WBC 0-3 (0-3) /HPF Ur Squamous Epith Cells RARE Squamous (<= Few) Urine Crystals /LPF Urine Bacteria None Seen (None Seen) /HPF Urine Culture Comments NOT INDICATED - Diagnostic Imaging Diagnostic Imaging Results: positive: Final report reviewed Assessment/Plan - Problem List (1) Falls Impression: Patient is noted to have multiple scattered bruises, but no recent fractures. 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 Plan: PT evaluation, and fall precautions. Qualifiers: Encounter type: initial encounter Qualified Code(s): W19.XXXA - Unspecified fall, initial encounter (2) Weakness generalized Impression: Per , the patient has been profoundly weak for several days leading up to the admission. We will treat the underlying problem. Plan: Fall precautions and frequent nursing care. (3) BPH (benign prostatic hyperplasia) Impression: Patient has a history of this and takes Flomax and finasteride at home. Plan: periodic bladder scans, monitor I/O and continue medications. (4) CAP (community acquired pneumonia) Impression: The patient had a normal WBC count, weakness, confusion and has had recent weight loss. Plan: Continue IV antibiotics and IV steroids. Qualifiers: Lung location: unspecified part of lung (5) Chronic a-fib Impression: Patient has long standing history of heart arrhythmias and takes coumadin at home. Admission INR was 2.4. Plan: Continue to monitor vital signs and monitor daily INRs. (6) Anemia Impression: Patient has an H/H of 13.4/38.7 at the time of admission. Suspect anemia of chronic disease. Plan: Monitor daily labs, order iron studies.
[2017-09-19] MEDS: AZITHROMYCIN INJ 500 MG in SODIUM CHLORIDE 0.9% 250 ML IV SCH (19:47)
[2017-09-19] MEDS: cefTRIAXone 1 GM in SODIUM CHLORIDE 0.9% MINIBAG 100 ML IV SCH (20:55)
[2017-09-19] MEDS: FINASTERIDE 5 MG TABLET PO SCH (20:58)
[2017-09-19] MEDS: TAMSULOSIN 0.4 MG CAPSULE PO SCH (20:58)
[2017-09-19] MEDS: WARFARIN 2.5 MG TABLET PO SCH (20:58)
[2017-09-19] MEDS ORDERED: WARFARIN 2.5 MG TABLET PO SCH (21:00)
[2017-09-20] MEDS: SODIUM CHLORIDE 0.9% 1,000 ML IV SCH ×2 (01:41→11:17)
[2017-09-20] MEDS: SODIUM CHLORIDE FLUSH 0.9% 10 ML SYRINGE IVP SCH ×3 (05:12→15:53)
[2017-09-20] MEDS ORDERED: BENZOCAINE/MENTHOL LOZENGE MM PRN (06:48)
[2017-09-20] MEDS: guaiFENesin 600 MG TABLET PO SCH ×2 (07:14→20:34)
[2017-09-20 08:25] LABS: HGB - HEMOGLOBIN 12.3 g/dL (14.0-18.0); MEAN CORPUSCULAR HEMOGLOBIN 35.3 pg (27.0-31.0); MEAN CORPUSCULAR HGB CONC 34.8 g/dL (32.0-36.0); MEAN CORPUSCULAR VOLUME 101.6 fL (80.0-94.0); MEAN PLATELET VOLUME 8.1 fL (7.4-11.4); RED BLOOD COUNT 3.49 10^6/uL (4.70-6.10); RED CELL DISTRIBUTION WIDTH 14.5 % (12.0-15.0); WHITE BLOOD COUNT 7.6 x10^3/uL (4.8-10.8)
[2017-09-20 08:30] LABS: CALCIUM 7.3 mg/dL (8.5-10.3); CREATININE 0.7 mg/dL (0.6-1.2)
[2017-09-20] MEDS: FAMOTIDINE 20 MG TABLET PO SCH (09:05)
[2017-09-20] MEDS: POLYETHYLENE GLYCOL 3350 17 GM PACKET PO SCH (09:06)
--- NOTE | 2017-09-20 12:16 | PROVIDER PROGRESS NOTE ---
Subjective - Prog Note Date Prog Note Date: 09/20/17 Prog Note Time: 12:45 - Subjective Pt reports feeling: Improved Subjective: Pt has been able to rest comfortably on room air, oxygen saturation running between 92-96%. Appetite poor, moving bowels. Slept well last night. Current Medications - Current Medications Current Medications: Acetaminophen (Tylenol) 650 mg PO Q4HR PRN PRN Reason: Pain or Fever > 38C (100.4F) Last Admin: 09/18/17 00:21 Dose: 650 mg Albuterol () 2.5 mg INH RTQ4H PRN PRN Reason: Wheezing Famotidine (Pepcid) 20 mg PO DAILY [facility] Last Admin: 09/19/17 08:28 Dose: 20 mg Finasteride (Proscar) 5 mg PO QPM [facility] Last Admin: 09/18/17 20:04 Dose: 5 mg Guaifenesin (Mucinex) 600 mg PO BID [facility] Last Admin: 09/19/17 08:28 Dose: 600 mg Sodium Chloride (Normal Saline 0.9%) 1,000 mls @ 100 mls/hr IV .Q10H [facility] Last Admin: 09/19/17 14:32 Dose: 100 mls/hr Ceftriaxone Sodium 1 gm/ (Sodium Chloride) 100 mls @ 200 mls/hr IV Q24H [facility] Last Infusion: 09/18/17 22:05 Dose: Infused Azithromycin 500 mg/ Sodium (Chloride) 250 mls @ 250 mls/hr IV Q24H [facility] Last Infusion: 09/18/17 20:56 Dose: Infused Morphine Sulfate (Morphine) 2 mg IVP Q2HR PRN PRN Reason: Dyspnea Ondansetron HCl (Zofran Odt) 4 mg TL Q6HR PRN PRN Reason: Nausea / Vomiting Polyethylene Glycol (Miralax) 17 gm PO DAILY [facility] Last Admin: 09/19/17 08:28 Dose: 17 gm Sodium Chloride (Normal Saline Flush 0.9%) 10 ml IVP PRN PRN PRN Reason: NEEDED PER PROVIDER ORDERS Sodium Chloride (Normal Saline Flush 0.9%) 10 ml IVP 0100,0900,1700 [facility] Last Admin: 09/19/17 08:30 Dose: Not Given Tamsulosin HCl (Flomax) 0.4 mg PO QPM [facility] Last Admin: 09/18/17 20:04 Dose: 0.4 mg Temazepam (Restoril) 15 mg PO QPM PRN PRN Reason: Insomnia Warfarin Sodium (Coumadin) 2.5 mg PO QPM [facility] Last Admin: 09/18/17 20:04 Dose: 2.5 mg Tamsulosin [Flomax] 0.4 mg PO QPM 06/08/13 Warfarin Sodium [Coumadin] 2.5 mg PO QPM 06/08/13 Finasteride 5 mg PO QPM 04/06/16 Objective - Vital Signs/Intake & Output Reviewed Vital Signs: Yes Vital Signs: Vital Signs x48h Temp Pulse Pulse Resp BP Pulse Ox 09/20/17 10:30 79 20 09/20/17 07:51 36.8 C 62 16 131/69 H 92 09/20/17 04:50 37.2 C 63 16 130/71 93 Intake & Output: Intake & Output 09/17/17 09/18/17 09/19/17 09/20/17 23:59 23:59 23:59 23:59 Intake Total 300 3195 3586.666 1966.667 Output Total 625 925 500 Balance 300 2570 2661.666 1466.667 - Objective General Appearance: positive: No acute distress, Alert Eyes Bilateral: positive: Normal inspection, PERRL, EOMI, No lid inflammation, Conjunctivae nml, No scleral icterus ENT: positive: ENT inspection nml, Pharynx nml, No signs of dehydration Neck: positive: Nml inspection, Thyroid nml, No JVD, Trachea midline. negative : Thyromegaly Respiratory: positive: Chest non-tender, No respiratory distress. negative: Wheezes, Rales, Rhonchi Cardiovascular: positive: Regular rate & rhythm, No murmur, No gallop Abdomen: positive: Non-tender, No organomegaly, Nml bowel sounds, No distention. negative: Guarding, Rebound Back: positive: Nml inspection. negative: CVA tenderness (R), CVA tenderness (L ) Skin: positive: Color nml, No rash, Warm, Dry. negative: Cyanosis Extremities: positive: Non-tender, Full ROM, Nml appearance, No pedal edema Neurologic/Psychiatric: positive: Oriented x3, CN's nml (2-12), Motor nml, Sensation nml, Mood/affect nml - Lab Results Fish Bones: 09/20/17 08:14 09/20/17 08:14 Other Labs: Lab Results x24hrs 09/20/17 09/20/17 Range/Units 08:14 08:14 WBC 7.6 (4.8-10.8) x10^3/uL RBC 3.49 L (4.70-6.10) 10^6/uL Hgb 12.3 L (14.0-18.0) g/dL Hct 35.4 L (42.0-52.0) % MCV 101.6 H (80.0-94.0) fL MCH 35.3 H (27.0-31.0) pg MCHC 34.8 (32.0-36.0) g/dL RDW 14.5 (12.0-15.0) % Plt Count 214 (130-450) 10^3/uL MPV 8.1 (7.4-11.4) fL Sodium 133 L (135-145) mmol/L Potassium 3.9 (3.5-5.0) mmol/L Chloride 106 (101-111) mmol/L Carbon Dioxide 21 (21-32) mmol/L Anion Gap 6.0 (6-13) BUN 21 H (6-20) mg/dL Creatinine 0.7 (0.6-1.2) mg/dL Estimated GFR (MDRD) 107 (>89) Glucose 98 (70-100) mg/dL Calcium 7.3 L (8.5-10.3) mg/dL - Diagnostic Imaging Diagnostic Imaging Results: positive: Final report reviewed Diagnostic Imaging Comments: EXAM: CHEST RADIOGRAPHY EXAM DATE: 09/17/2017 07:30 PM. CLINICAL HISTORY: Cough and fever. COMPARISON: 06/19/2016. TECHNIQUE: 2 views. FINDINGS: Lungs/Pleura: Prominent infiltration in the right upper lobe. Otherwise clear. No effusion or pneumothorax. Mediastinum: Normal heart size, unchanged. Masslike fullness of right hilum. 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 Scoliosis with degenerative changes. IMPRESSION: 1. Right upper lobe infiltrate. 2. Right hilar fullness; this may be secondary to adjacent pneumonia with lymphadenitis. Follow-up is recommended to confirm resolution and exclude other underlying lesions. Assessment/Plan - Problem List (1) Falls Impression: The pt reportedly has been falling at home. 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 The patient is weak, will order PT/OT when he is a little stronger. Qualifiers: Encounter type: initial encounter Qualified Code(s): W19.XXXA - Unspecified fall, initial encounter (2) Weakness generalized Impression: The patient reports a slight improvement, but is not close to baseline. Will continue to monitor. (3) BPH (benign prostatic hyperplasia) Impression: Well managed, continue flomax and finasteride. Qualifiers: Lower urinary tract symptom detail: nocturia (4) CAP (community acquired pneumonia) Impression: Continue IV antibiotics. Repeat CXR. Qualifiers: Lung location: unspecified part of lung (5) Chronic a-fib Impression: Patient has long standing history of heart arrhythmias and takes coumadin at home. Admission INR was 2.4. Continue present coumadin dosing. (6) Anemia Impression: H&H has been stable, Hgb 12.3. Continue present care.
--- NOTE | 2017-09-20 16:14 | XRAY Report ---
TWO VIEW CHEST: 09/20/2017 CLINICAL INDICATION: Followup infiltrate. COMPARISON: 09/17/2017. FINDINGS: Frontal and lateral views of the chest demonstrate a normal cardiac silhouette. Left subclavian pacemaker is in stable position. Right upper lobe infiltrate has increased. New left basilar airspace disease is present. Trace effusions are now present. No pneumothorax. IMPRESSION: WORSENING PLEURAL AND PARENCHYMAL DISEASE. TD: 09/20/2017 16:13
[2017-09-20] MEDS: levoFLOXacin 500 MG/100 ML 500 MG/100 ML BAG IV SCH (18:17)
[2017-09-20] MEDS: CEFEPIME 2 GM in SODIUM CHLORIDE 0.9% MINIBAG 100 ML IV SCH (20:30)
[2017-09-20] MEDS: WARFARIN 2.5 MG TABLET PO SCH (20:33)
[2017-09-20] MEDS: TAMSULOSIN 0.4 MG CAPSULE PO SCH (20:33)
[2017-09-20] MEDS: MAGNESIUM OXIDE 400 MG TABLET PO SCH (20:33)
[2017-09-20] MEDS: FINASTERIDE 5 MG TABLET PO SCH (20:33)
[2017-09-21] MEDS: SODIUM CHLORIDE 0.9% 1,000 ML IV SCH ×3 (00:24→20:36)
[2017-09-21] MEDS: SODIUM CHLORIDE FLUSH 0.9% 10 ML SYRINGE IVP SCH ×3 (00:24→18:09)
[2017-09-21 06:11] LABS: HGB - HEMOGLOBIN 12.7 g/dL (14.0-18.0); MEAN CORPUSCULAR HEMOGLOBIN 34.2 pg (27.0-31.0); MEAN CORPUSCULAR HGB CONC 33.7 g/dL (32.0-36.0); MEAN CORPUSCULAR VOLUME 101.2 fL (80.0-94.0); MEAN PLATELET VOLUME 7.5 fL (7.4-11.4); RED BLOOD COUNT 3.73 10^6/uL (4.70-6.10); RED CELL DISTRIBUTION WIDTH 14.4 % (12.0-15.0); WHITE BLOOD COUNT 7.3 x10^3/uL (4.8-10.8)
[2017-09-21 06:15] LABS: CALCIUM 7.6 mg/dL (8.5-10.3); CREATININE 0.6 mg/dL (0.6-1.2)
[2017-09-21] MEDS: MULTIVITAMIN TABLET PO SCH (08:53)
[2017-09-21] MEDS: MAGNESIUM OXIDE 400 MG TABLET PO SCH (08:53)
[2017-09-21] MEDS: guaiFENesin 600 MG TABLET PO SCH ×2 (08:53→20:40)
[2017-09-21] MEDS: CEFEPIME 2 GM in SODIUM CHLORIDE 0.9% MINIBAG 100 ML IV SCH ×2 (08:54→20:37)
[2017-09-21] MEDS: FAMOTIDINE 20 MG TABLET PO SCH (08:54)
[2017-09-21] MEDS: POLYETHYLENE GLYCOL 3350 17 GM PACKET PO SCH (08:54)
--- NOTE | 2017-09-21 13:08 | PROVIDER PROGRESS NOTE ---
Assessment/Plan - Problem List (1) CAP (community acquired pneumonia) Qualifiers: Laterality: left Lung location: lower lobe of lung Qualified Code(s): J18.1 - Lobar pneumonia, unspecified organism Assessment/Plan: A repeat chest xray done yesterday showed a worsening of the patient's pneumonia, so his antibiotics were changed. He is breathing easily on room air at his time but reportedly had a difficult to control cough last night. He is becoming deconditioned so PT eval and treatment have been ordered. (2) Weakness generalized Assessment/Plan: Te patient seems a bit stronger, will have PT work with him today. (3) BPH (benign prostatic hyperplasia) Qualifiers: Lower urinary tract symptom detail: nocturia Assessment/Plan: Well managed, continue flomax and finasteride. (4) Chronic a-fib Assessment/Plan: Patient has long standing history of heart arrhythmias and takes coumadin at home. Admission INR was 2.4. Continue present coumadin dosing. (5) Anemia Qualifiers: Other causes of anemia: nutritional, unspecified Assessment/Plan: H&H has been stable, Hgb climbing 12.3 yesterday to 12.7 today. Continue present care. (6) Falls Qualifiers: Encounter type: initial encounter Qualified Code(s): W19.XXXA - Unspecified fall, initial encounter Assessment/Plan: The pt reportedly has been falling at home. 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 The patient is weak, will order PT/OT today. - Current Meds Current Meds: Current Medications Generic Name Dose Route Start Last Admin Trade Name Freq PRN Reason Stop Dose Admin Acetaminophen 650 mg 09/17/17 20:45 09/18/17 00:21 Tylenol PO 650 mg Q4HR PRN Administration Pain or Fever > 38C (100.4F) Famotidine 20 mg 09/18/17 09:00 09/21/17 08:54 Pepcid PO Not Given DAILY [facility] Finasteride 5 mg 09/18/17 21:00 09/20/17 20:33 Proscar PO 5 mg QPM [facility] Administration Guaifenesin 600 mg 09/17/17 23:00 09/21/17 08:53 Mucinex PO 600 mg BID [facility] Administration Sodium Chloride 1,000 mls @ 100 mls/hr 09/17/17 21:00 09/21/17 08:57 Normal Saline 0.9% IV 100 mls/hr .Q10H [facility] Administration Cefepime HCl 2 gm/ Sodium 100 mls @ 200 mls/hr 09/20/17 20:00 09/21/17 09:25 Chloride IV Infused BID [facility] Infusion Levofloxacin 500 mg in 100 mls @ 100 mls/hr 09/20/17 18:00 09/20/17 19:25 Levaquin 500 Mg/100 Ml IV Infused Q24H [facility] Infusion Magnesium Oxide 400 mg 09/20/17 21:00 09/21/17 08:53 Mag Ox PO 400 mg DAILYWM [facility] Administration Multivitamins 1 tab 09/21/17 08:00 09/21/17 08:53 Theragran PO 1 tab DAILYWM [facility] Administration Polyethylene Glycol 17 gm 09/18/17 09:00 09/21/17 08:54 Miralax PO Not Given DAILY [facility] Sodium Chloride 10 ml 09/18/17 01:00 09/21/17 00:24 Normal Saline Flush 0.9% IVP Not Given 0100,0900,1700 [facility] Tamsulosin HCl 0.4 mg 09/17/17 21:00 09/20/17 20:33 Flomax PO 0.4 mg QPM [facility] Administration Warfarin Sodium 2.5 mg 09/18/17 21:00 09/20/17 20:33 Coumadin PO 2.5 mg QPM [facility] Administration - Lab Result Fish Bone Diagrams: 09/21/17 05:45 09/21/17 05:45 - Diagnostic Imaging Results Diagnostic Imaging Results: Final report reviewed Diagnostic Imaging Results Comments: EXAM: CHEST RADIOGRAPHY EXAM DATE: 09/17/2017 07:30 PM. CLINICAL HISTORY: Cough and fever. COMPARISON: 06/19/2016. TECHNIQUE: 2 views. FINDINGS: Lungs/Pleura: Prominent infiltration in the right upper lobe. Otherwise clear. No effusion or pneumothorax. Mediastinum: Normal heart size, unchanged. Masslike fullness of right hilum. 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 Scoliosis with degenerative changes. IMPRESSION: 1. Right upper lobe infiltrate. 2. Right hilar fullness; this may be secondary to adjacent pneumonia with lymphadenitis. Follow-up is recommended to confirm resolution and exclude other underlying lesions. - Additional Planning My Orders: My Active Orders 09/21/17 Evaluate and Treat PT [PT] Routine 09/22/17 05:00 BMP - BASIC METABOLIC PANEL [CHEM] DAILYLAB CBC W/O DIFF (HEMOGRAM) [HEME] DAILYLAB 09/23/17 05:00 BMP - BASIC METABOLIC PANEL [CHEM] DAILYLAB CBC W/O DIFF (HEMOGRAM) [HEME] DAILYLAB 09/24/17 05:00 BMP - BASIC METABOLIC PANEL [CHEM] DAILYLAB CBC W/O DIFF (HEMOGRAM) [HEME] DAILYLAB Subjective - Subjective Patient Reports: Feeling Better, Resting Comfortably, No Complaints, Fatigue Nursing Reports: No Complaints Objective Vital Signs: Vital Signs - 24 hr 09/20/17 09/20/17 09/21/17 15:48 19:47 00:25 Temperature 37.0 C 37.0 C 36.6 C Heart Rate [ 62 63 62 Brachial] Respiratory 15 15 16 Rate Blood Pressure 153/81 H 146/80 H 153/78 H [Left Brachial artery] O2 Saturation 98 94 94 09/21/17 08:00 Temperature 36.5 C Heart Rate [ 62 Brachial] Respiratory 16 Rate Blood Pressure 151/77 H [Left Brachial artery] O2 Saturation 94 Oxygen O2 Source Room air I&O (Last 24 Hrs): Intake and Output Totals x24h 09/19/17 09/20/17 09/21/17 23:59 23:59 23:59 Intake Total 3586.666 3756.667 1435 Output Total 925 700 700 Balance 2661.666 3056.667 735 General: No acute distress, Other (somnolent but easily arousable) HEENT: Atraumatic, PERRLA, EOMI Neck: Supple, No JVD, No thyromegaly Lymphatic: no adenopathy Neuro: Alert, CN 2-12 Grossly Intact, Oriented Times 3 Cardiovascular: Regular rate, Normal S1, Normal S2 Respiratory: Chest non-tender, No respiratory distress, Breath sounds nml Abdomen: Normal bowel sounds, Soft, No tenderness, No hepatospenomegaly, No masses Genitourinary: Normal Inspection, No Mass, No Discharge, No Hernia Extremities: No clubbing, No cyanosis, No edema, Normal pulses Skin: No rashes, No breakdown, No significant lesion - Results Results: Laboratory Results WBC 7.3 x10^3/uL (4.8-10.8) 09/21/17 05:45 RBC 3.73 10^6/uL (4.70-6.10) L 09/21/17 05:45 Hgb 12.7 g/dL (14.0-18.0) L 09/21/17 05:45 Hct 37.7 % (42.0-52.0) L 09/21/17 05:45 MCV 101.2 fL (80.0-94.0) H 09/21/17 05:45 MCH 34.2 pg (27.0-31.0) H 09/21/17 05:45 MCHC 33.7 g/dL (32.0-36.0) 09/21/17 05:45 RDW 14.4 % (12.0-15.0) 09/21/17 05:45 Plt Count 274 10^3/uL (130-450) 09/21/17 05:45 MPV 7.5 fL (7.4-11.4) 09/21/17 05:45 Neut # 7.1 10^3/uL (1.5-6.6) H 09/18/17 06:07 Lymph # 0.6 10^3/uL (1.5-3.5) L 09/18/17 06:07 [place] # 0.5 10^3/uL (0.0-1.0) 09/18/17 06:07 Eos # 0.0 10^3/uL (0.0-0.7) 09/18/17 06:07 Baso # 0.0 10^3/uL (0.0-0.1) 09/18/17 06:07 Absolute Nucleated RBC 0.00 x10^3/uL 09/18/17 06:07 Nucleated RBC % 0.0 /100WBC 09/18/17 06:07 Manual Slide Review Indicated 09/18/17 06:07 Platelet Estimate NORMAL (130-450,000) (NORMAL) 09/18/17 06:07 Platelet Morphology 1+ LARGE PLATELETS (NORMAL) 09/18/17 06:07 RBC Morph Micro Appear NORMAL APPEARANCE (NORMAL) 09/18/17 06:07 PT 25.8 secs (9.9-12.6) H 09/18/17 06:07 INR 2.4 (0.8-1.2) H 09/18/17 06:07 Sodium 133 mmol/L (135-145) L 09/21/17 05:45 Potassium 3.9 mmol/L (3.5-5.0) 09/21/17 05:45 Chloride 105 mmol/L (101-111) 09/21/17 05:45 Carbon Dioxide 21 mmol/L (21-32) 09/21/17 05:45 Anion Gap 7.0 (6-13) 09/21/17 05:45 BUN 19 mg/dL (6-20) 09/21/17 05:45 Creatinine 0.6 mg/dL (0.6-1.2) 09/21/17 05:45 Estimated GFR (MDRD) 128 (>89) 09/21/17 05:45 Glucose 96 mg/dL (70-100) 09/21/17 05:45 Lactic Acid 1.3 mmol/L (0.5-2.2) 09/17/17 19:05 Calcium 7.6 mg/dL (8.5-10.3) L 09/21/17 05:45 Magnesium 2.0 mg/dL (1.7-2.8) 09/17/17 19:05 Total Bilirubin 0.5 mg/dL (0.2-1.0) 09/17/17 19:05 AST 79 IU/L (10-42) H 09/17/17 19:05 ALT 50 IU/L (10-60) 09/17/17 19:05 Alkaline Phosphatase 47 IU/L (42-121) 09/17/17 19:05 Troponin I < 0.04 ng/mL (<0.49) 09/18/17 05:22 B-Natriuretic Peptide 523 pg/mL (5-100) H 09/21/17 05:45 Total Protein 6.5 g/dL (6.7-8.2) L 09/17/17 19:05 Albumin 3.3 g/dL (3.2-5.5) 09/17/17 19:05 Globulin 3.2 g/dL (2.1-4.2) 09/17/17 19:05 Albumin/Globulin Ratio 1.0 (1.0-2.2) 09/17/17 19:05 Lipase 22 U/L (22-51) 09/17/17 19:05 Vitamin B12 1075 pg/mL (180-914) H 09/18/17 06:07 Folate 21.20 ng/mL (5.90 - >24.8) 09/18/17 06:07 Urine Color YELLOW 09/19/17 04:55 Urine Clarity SL. CLOUDY (CLEAR) 09/19/17 04:55 Urine pH 5.5 PH (5.0-7.5) 09/19/17 04:55 Ur Specific [place] 1.025 (1.002-1.030) 09/19/17 04:55 Urine Protein 30 mg/dL (NEGATIVE) H 09/19/17 04:55 Urine Glucose (UA) NEGATIVE mg/dL (NEGATIVE) 09/19/17 04:55 Urine Ketones NEGATIVE mg/dL (NEGATIVE) 09/19/17 04:55 Urine Occult Blood LARGE (NEGATIVE) H 09/19/17 04:55 Urine Nitrite NEGATIVE (NEGATIVE) 09/19/17 04:55 Urine Bilirubin NEGATIVE (NEGATIVE) 09/19/17 04:55 Urine Urobilinogen 0.2 (NORMAL) E.U./dL (NORMAL) 09/19/17 04:55 Ur Leukocyte Esterase NEGATIVE (NEGATIVE) 09/19/17 04:55 Urine RBC 11-25 /HPF (0-5) H 09/19/17 04:55 Urine WBC 0-3 /HPF (0-3) 09/19/17 04:55 Ur Squamous Epith Cells RARE Squamous (<= Few) 09/19/17 04:55 Urine Crystals /LPF 09/19/17 04:55 Urine Bacteria None Seen /HPF (None Seen) 09/19/17 04:55 Urine Culture Comments NOT INDICATED 09/19/17 04:55 Influenza A (Rapid) Negative (Negative) 09/17/17 19:30 Influenza B (Rapid) Negative (Negative) 09/17/17 19:30 Influenza Types A,B Ag - 09/17/17 19:30
[2017-09-21] MEDS: levoFLOXacin 500 MG/100 ML 500 MG/100 ML BAG IV SCH (18:09)
[2017-09-21] MEDS: WARFARIN 2.5 MG TABLET PO SCH (20:40)
[2017-09-21] MEDS: TAMSULOSIN 0.4 MG CAPSULE PO SCH (20:40)
[2017-09-21] MEDS: FINASTERIDE 5 MG TABLET PO SCH (20:40)
[2017-09-21] MEDS ORDERED: guaiFENesin/DEXTROMETHORPHAN 10 ML UDC PO PRN (21:30)
[2017-09-22] MEDS: SODIUM CHLORIDE FLUSH 0.9% 10 ML SYRINGE IVP SCH ×4 (00:19→17:46)
[2017-09-22 06:48] LABS: HGB - HEMOGLOBIN 13.1 g/dL (14.0-18.0); MEAN CORPUSCULAR HEMOGLOBIN 34.3 pg (27.0-31.0); MEAN CORPUSCULAR HGB CONC 33.6 g/dL (32.0-36.0); MEAN CORPUSCULAR VOLUME 101.9 fL (80.0-94.0); RED BLOOD COUNT 3.83 10^6/uL (4.70-6.10); RED CELL DISTRIBUTION WIDTH 14.2 % (12.0-15.0)
[2017-09-22 07:05] LABS: PT - PROTHROMBIN TIME 55.8 secs (9.9-12.6)
[2017-09-22 07:06] LABS: CALCIUM 7.7 mg/dL (8.5-10.3); CREATININE 0.7 mg/dL (0.6-1.2)
[2017-09-22 07:25] LABS: INR 5.3 (0.8-1.2)
[2017-09-22] MEDS: FAMOTIDINE 20 MG TABLET PO SCH (08:27)
[2017-09-22] MEDS: MULTIVITAMIN TABLET PO SCH (08:27)
[2017-09-22] MEDS: guaiFENesin 600 MG TABLET PO SCH ×2 (08:27→20:25)
[2017-09-22] MEDS: MAGNESIUM OXIDE 400 MG TABLET PO SCH (08:28)
[2017-09-22] MEDS: FUROSEMIDE 40 MG/4 ML VIAL IVP SCH ×2 (08:28→14:54)
[2017-09-22] MEDS: CEFEPIME 2 GM in SODIUM CHLORIDE 0.9% MINIBAG 100 ML IV SCH ×2 (08:31→20:21)
[2017-09-22] MEDS: POLYETHYLENE GLYCOL 3350 17 GM PACKET PO SCH (08:34)
--- NOTE | 2017-09-22 17:06 | PROVIDER PROGRESS NOTE ---
Assessment/Plan - Problem List (1) CAP (community acquired pneumonia) Qualifiers: Laterality: left Lung location: lower lobe of lung Qualified Code(s): J18.1 - Lobar pneumonia, unspecified organism Assessment/Plan: Presented with multiple falls, increased weakness. Initial CXR with RUL infiltrate and increased hilar fullness. Repeat CXR on 09/20 with worsening pleural and parenchymal disease + new left basilar disease + trace effusions. Antibx changed form rocephin/azith to cefepime/levaquin with considering that pneumonia was worsening. Sputum cx with normal tito. I suspect effusion due to continuous IVF x3d. is confirming increasing per edema in the arms and abdomen. On RA now, still no leukocytosis or fevers. -Lasix 40mg IV BID -Duoneb q6 -Continue cefepime and levaquin -Mucinex bid -Repeat CXR in 48hr and assess for improvement of hilar fullness/RUL and left basilar infiltrate (2) Weakness generalized Assessment/Plan: Generalized ans secondary to pneurmonia. PT eval on 09/22, [facility]. is inconsitent on her wants and patient defers decisions to . -Home with PT HH vs SNF for a short stay -Continue OOB TID with meals -Walk 1-2x/day (3) Anticoagulant long-term use Assessment/Plan: SUPRATHERAPEUTIC INR On warfarin for chronic afib. INR 2.4 on admission, INR now 5.3 after starting levaquin on 09/09. No s/s of bleeding. -Hold warfarin -Monitor H&H daily, resume at half dose once trending down (4) BPH (benign prostatic hyperplasia) Qualifiers: Lower urinary tract symptom detail: nocturia Assessment/Plan: Chronic, stable, increased frequency with diuretic. Clear yellow, no hematuria. -Urinal at bedside -Continue proscar and finasteride (5) Chronic a-fib Assessment/Plan: Chronic, rate controlled without med. Has PPM, ?hx of bradycardia. Anticoagulation discussed above. -No need for tele as rate is controlled -Monitor with VS for RVR given stress of illness (6) Status post placement of cardiac pacemaker Assessment/Plan: Unsure reason for need. (7) Anemia Qualifiers: Other causes of anemia: nutritional, unspecified Assessment/Plan: Macrocytic anemia, chronic and stable. B12 and folate WNL. -Monitor PRN - Current Meds Current Meds: Current Medications Generic Name Dose Route Start Last Admin Trade Name Freq PRN Reason Stop Dose Admin Acetaminophen 650 mg 09/17/17 20:45 09/18/17 00:21 Tylenol PO 650 mg Q4HR PRN Administration Pain or Fever > 38C (100.4F) Famotidine 20 mg 09/18/17 09:00 09/22/17 08:27 Pepcid PO 20 mg DAILY [facility] Administration Finasteride 5 mg 09/18/17 21:00 09/21/17 20:40 Proscar PO 5 mg QPM [facility] Administration Furosemide 40 mg 09/22/17 09:00 09/22/17 14:54 Lasix Inj 40 Mg Vial IVP 40 mg BIDDIURETIC [facility] Administration Guaifenesin 600 mg 09/17/17 23:00 09/22/17 08:27 Mucinex PO 600 mg BID [facility] Administration Cefepime HCl 2 gm/ Sodium 100 mls @ 200 mls/hr 09/20/17 20:00 09/22/17 09:20 Chloride IV Infused BID [facility] Infusion Levofloxacin 500 mg in 100 mls @ 100 mls/hr 09/20/17 18:00 09/21/17 19:10 Levaquin 500 Mg/100 Ml IV Infused Q24H [facility] Infusion Sodium Chloride 1,000 mls @ 30 mls/hr 09/21/17 19:55 09/21/17 21:52 Normal Saline 0.9% IV 30 mls/hr .[id number] [facility] Infusion Magnesium Oxide 400 mg 09/20/17 21:00 09/22/17 08:28 Mag Ox PO 400 mg DAILYWM [facility] Administration Multivitamins 1 tab 09/21/17 08:00 09/22/17 08:27 Theragran PO 1 tab DAILYWM [facility] Administration Polyethylene Glycol 17 gm 09/18/17 09:00 09/22/17 08:34 Miralax PO Not Given DAILY [facility] Sodium Chloride 10 ml 09/18/17 01:00 09/22/17 14:55 Normal Saline Flush 0.9% IVP 10 ml 0100,0900,1700 [facility] Administration Tamsulosin HCl 0.4 mg 09/17/17 21:00 09/21/17 20:40 Flomax PO 0.4 mg QPM [facility] Administration - Lab Result Fish Bone Diagrams: 09/22/17 06:43 09/22/17 06:43 - Diagnostic Imaging Results Diagnostic Imaging Results: Final report reviewed - Additional Planning Condition/Complexity: Guarded My Orders: My Active Orders 09/22/17 09:00 FUROSEMIDE INJ 40mg VIAL [LASIX INJ 40 mg VIAL] 40 mg IVP BIDDIURETIC Plan Discussed with:: Patient, Spouse Time Spent: 15-30 minutes Subjective - Subjective Patient Reports: Feeling Better (a little, still feeling weak and tired, states he is 65% of his usual self. Has no SOB right now, no chets pain, no abdominal pain. +BM this AM. Reports frequency, no dysuria) Objective Vital Signs: Vital Signs - 24 hr 09/21/17 09/22/17 09/22/17 17:40 00:00 08:00 Temperature 36.7 C 36.8 C Heart Rate [ 65 64 Brachial] Respiratory 16 17 Rate Blood Pressure 150/86 H [Left Brachial artery] Blood Pressure 142/85 H 152/86 H [Right Radial artery] O2 Saturation 97 94 95 09/22/17 15:13 Temperature 36.7 C Heart Rate [ 61 Brachial] Respiratory 18 Rate Blood Pressure [Left Brachial artery] Blood Pressure 138/78 H [Right Radial artery] O2 Saturation 94 Oxygen O2 Source [With Activity] Room air O2 Source Room air I&O (Last 24 Hrs): Intake and Output Totals x24h 09/20/17 09/21/17 09/22/17 23:59 23:59 23:59 Intake Total 3756.667 3623.000 580 Output Total 700 1375 4025 Balance 3056.667 2248.000 -3445 General: Alert, Oriented x3, Cooperative, No acute distress HEENT: PERRLA Neck: Supple, No JVD Neuro: Non Focal Cardiovascular: Other (Irregularly irregular, palpable radial and weak pedal pulses, + nonpitting extremity edema) Respiratory: Chest non-tender, No respiratory distress, Rhonchi Abdomen: Normal bowel sounds, Soft, No tenderness Genitourinary: Normal Inspection Extremities: No clubbing, No cyanosis Skin: No rashes - Results Results: Laboratory Results WBC 8.0 x10^3/uL (4.8-10.8) 09/22/17 06:43 RBC 3.83 10^6/uL (4.70-6.10) L 09/22/17 06:43 Hgb 13.1 g/dL (14.0-18.0) L 09/22/17 06:43 Hct 39.0 % (42.0-52.0) L 09/22/17 06:43 MCV 101.9 fL (80.0-94.0) H 09/22/17 06:43 MCH 34.3 pg (27.0-31.0) H 09/22/17 06:43 MCHC 33.6 g/dL (32.0-36.0) 09/22/17 06:43 RDW 14.2 % (12.0-15.0) 09/22/17 06:43 Plt Count 350 10^3/uL (130-450) 09/22/17 06:43 MPV 7.0 fL (7.4-11.4) L 09/22/17 06:43 Neut # 7.1 10^3/uL (1.5-6.6) H 09/18/17 06:07 Lymph # 0.6 10^3/uL (1.5-3.5) L 09/18/17 06:07 [place] # 0.5 10^3/uL (0.0-1.0) 09/18/17 06:07 Eos # 0.0 10^3/uL (0.0-0.7) 09/18/17 06:07 Baso # 0.0 10^3/uL (0.0-0.1) 09/18/17 06:07 Absolute Nucleated RBC 0.00 x10^3/uL 09/18/17 06:07 Nucleated RBC % 0.0 /100WBC 09/18/17 06:07 Manual Slide Review Indicated 09/18/17 06:07 Platelet Estimate NORMAL (130-450,000) (NORMAL) 09/18/17 06:07 Platelet Morphology 1+ LARGE PLATELETS (NORMAL) 09/18/17 06:07 RBC Morph Micro Appear NORMAL APPEARANCE (NORMAL) 09/18/17 06:07 PT 55.8 secs (9.9-12.6) H 09/22/17 06:43 INR 5.3 (0.8-1.2) H* 09/22/17 06:43 Sodium 135 mmol/L (135-145) 09/22/17 06:43 Potassium 4.0 mmol/L (3.5-5.0) 09/22/17 06:43 Chloride 106 mmol/L (101-111) 09/22/17 06:43 Carbon Dioxide 23 mmol/L (21-32) 09/22/17 06:43 Anion Gap 6.0 (6-13) 09/22/17 06:43 BUN 18 mg/dL (6-20) 09/22/17 06:43 Creatinine 0.7 mg/dL (0.6-1.2) 09/22/17 06:43 Estimated GFR (MDRD) 107 (>89) 09/22/17 06:43 Glucose 98 mg/dL (70-100) 09/22/17 06:43 Lactic Acid 1.3 mmol/L (0.5-2.2) 09/17/17 19:05 Calcium 7.7 mg/dL (8.5-10.3) L 09/22/17 06:43 Magnesium 2.0 mg/dL (1.7-2.8) 09/17/17 19:05 Total Bilirubin 0.5 mg/dL (0.2-1.0) 09/17/17 19:05 AST 79 IU/L (10-42) H 09/17/17 19:05 ALT 50 IU/L (10-60) 09/17/17 19:05 Alkaline Phosphatase 47 IU/L (42-121) 09/17/17 19:05 Troponin I < 0.04 ng/mL (<0.49) 09/18/17 05:22 B-Natriuretic Peptide 523 pg/mL (5-100) H 09/21/17 05:45 Total Protein 6.5 g/dL (6.7-8.2) L 09/17/17 19:05 Albumin 3.3 g/dL (3.2-5.5) 09/17/17 19:05 Globulin 3.2 g/dL (2.1-4.2) 09/17/17 19:05 Albumin/Globulin Ratio 1.0 (1.0-2.2) 09/17/17 19:05 Lipase 22 U/L (22-51) 09/17/17 19:05 Vitamin B12 1075 pg/mL (180-914) H 09/18/17 06:07 Folate 21.20 ng/mL (5.90 - >24.8) 09/18/17 06:07 Urine Color YELLOW 09/19/17 04:55 Urine Clarity SL. CLOUDY (CLEAR) 09/19/17 04:55 Urine pH 5.5 PH (5.0-7.5) 09/19/17 04:55 Ur Specific [place] 1.025 (1.002-1.030) 09/19/17 04:55 Urine Protein 30 mg/dL (NEGATIVE) H 09/19/17 04:55 Urine Glucose (UA) NEGATIVE mg/dL (NEGATIVE) 09/19/17 04:55 Urine Ketones NEGATIVE mg/dL (NEGATIVE) 09/19/17 04:55 Urine Occult Blood LARGE (NEGATIVE) H 09/19/17 04:55 Urine Nitrite NEGATIVE (NEGATIVE) 09/19/17 04:55 Urine Bilirubin NEGATIVE (NEGATIVE) 09/19/17 04:55 Urine Urobilinogen 0.2 (NORMAL) E.U./dL (NORMAL) 09/19/17 04:55 Ur Leukocyte Esterase NEGATIVE (NEGATIVE) 09/19/17 04:55 Urine RBC 11-25 /HPF (0-5) H 09/19/17 04:55 Urine WBC 0-3 /HPF (0-3) 09/19/17 04:55 Ur Squamous Epith Cells RARE Squamous (<= Few) 09/19/17 04:55 Urine Crystals /LPF 09/19/17 04:55 Urine Bacteria None Seen /HPF (None Seen) 09/19/17 04:55 Urine Culture Comments NOT INDICATED 09/19/17 04:55 Influenza A (Rapid) Negative (Negative) 09/17/17 19:30 Influenza B (Rapid) Negative (Negative) 09/17/17 19:30 Influenza Types A,B Ag - 09/17/17 19:30
[2017-09-22] MEDS: levoFLOXacin 500 MG/100 ML 500 MG/100 ML BAG IV SCH (17:46)
[2017-09-22] MEDS: IPRATROPIUM/ALBUTEROL 3 ML NEB INH PRN (18:07)
[2017-09-22] MEDS: TAMSULOSIN 0.4 MG CAPSULE PO SCH (20:25)
[2017-09-22] MEDS: FINASTERIDE 5 MG TABLET PO SCH (20:25)
[2017-09-23] MEDS: SODIUM CHLORIDE FLUSH 0.9% 10 ML SYRINGE IVP SCH ×3 (00:52→19:16)
[2017-09-23] MEDS: FUROSEMIDE 40 MG/4 ML VIAL IVP SCH (05:46)
[2017-09-23 05:55] LABS: HGB - HEMOGLOBIN 13.2 g/dL (14.0-18.0); MEAN CORPUSCULAR HEMOGLOBIN 34.1 pg (27.0-31.0); MEAN CORPUSCULAR HGB CONC 33.7 g/dL (32.0-36.0); MEAN PLATELET VOLUME 7.3 fL (7.4-11.4); RED BLOOD COUNT 3.87 10^6/uL (4.70-6.10); RED CELL DISTRIBUTION WIDTH 14.5 % (12.0-15.0); WHITE BLOOD COUNT 8.3 x10^3/uL (4.8-10.8)
[2017-09-23 06:03] LABS: PT - PROTHROMBIN TIME 52.1 secs (9.9-12.6)
[2017-09-23 06:05] LABS: CALCIUM 7.9 mg/dL (8.5-10.3); CREATININE 0.8 mg/dL (0.6-1.2)
[2017-09-23 06:12] LABS: INR 4.9 (0.8-1.2)
[2017-09-23] MEDS: SODIUM CHLORIDE 0.9% 1,000 ML IV SCH (07:57)
[2017-09-23] MEDS: CEFEPIME 2 GM in SODIUM CHLORIDE 0.9% MINIBAG 100 ML IV SCH ×2 (07:57→20:46)
[2017-09-23] MEDS: MULTIVITAMIN TABLET PO SCH (08:27)
[2017-09-23] MEDS: FAMOTIDINE 20 MG TABLET PO SCH (08:27)
[2017-09-23] MEDS: guaiFENesin 600 MG TABLET PO SCH ×2 (08:27→20:47)
[2017-09-23] MEDS: MAGNESIUM OXIDE 400 MG TABLET PO SCH (08:27)
[2017-09-23] MEDS: POLYETHYLENE GLYCOL 3350 17 GM PACKET PO SCH (08:28)
--- NOTE | 2017-09-23 09:31 | PROVIDER PROGRESS NOTE ---
Assessment/Plan - Problem List (1) CAP (community acquired pneumonia) Qualifiers: Laterality: left Lung location: lower lobe of lung Qualified Code(s): J18.1 - Lobar pneumonia, unspecified organism Assessment/Plan: Presented with multiple falls, increased weakness. Initial CXR with RUL infiltrate and increased hilar fullness, given empiric CTX/azithromycin, no leukocytosis. Repeat CXR on 09/20 with worsening pleural and parenchymal disease + new left basilar disease + trace effusions. Antibx changed to cefepime/ levaquin with consideration of worsening PNA. Sputum cx with normal tito. I suspect effusion due to continuous IVF x3d. is confirming increasing per edema in the arms and abdomen. On RA now, still no leukocytosis or fevers. BNP 523, (ECHO with normal EF) Lasix 40mg IV BID started 09/22, having frequent urination of 250-300ml. Frequency leading to poor sleep. +Daily weight 61kg on admit --> 61kg today -DC lasix as he has had 4+L out and weight to baseline (already had 6am dose) -CT chest given persistent symptoms despite with empiric antibx, rule out underlying mass --- no mass, + persistent right patchy effusions -CT chest with persistent pleural effusion, so resume lasix 40mg PO daily -Send out procalcitonin -Duoneb q6 -Continue cefepime and levaquin -Mucinex bid (2) Weakness generalized Assessment/Plan: Generalized and secondary to pneumonia. PT eval on 09/22, [facility]. is inconsistent on her wants and patient defers decisions to . +09/23 refusing for patient to have PT until he gets some sleep, will request RN to not disturb and have PT see late in the day. -Home with PT vs SNF for a short stay before back home -Continue OOB TID with meals -Walk 1-2x/day (3) Anticoagulant long-term use Assessment/Plan: SUPRATHERAPEUTIC INR On warfarin for chronic afib. INR 2.4 on admission, INR now 5.3 after starting levaquin on 09/09. No s/s of bleeding. -Hold warfarin -Monitor H&H daily, resume at half dose once trending down (4) BPH (benign prostatic hyperplasia) Chronic, stable, increased frequency with diuretic. Clear yellow, no hematuria. -Urinal at bedside -Continue proscar and finasteride (5) Chronic a-fib Assessment/Plan: Chronic, rate controlled without med. Has PPM, ?hx of bradycardia. Anticoagulation discussed above. -No need for tele as rate is controlled in the 60s -Monitor with VS for RVR given stress of illness (6) Status post placement of cardiac pacemaker Assessment/Plan: Unsure reason for need. (7) Anemia Macrocytic anemia, chronic and stable. B12 and folate WNL. -Monitor PRN DISCHARGE PLAN: Given 's inconsistent wants and wishes his next site of care is unclear. From PT perspective SNF would be safest choice, at least for short time. > 25minutes spent at bedside with pateint and discussing medical problems/ treatment plan/discharge planning. is hyperverbal, raising her tone of voice at me. She constantly interrupts my conversation with the patient (who is awake and alert, capable of answering for himself). She will not leave the room to allow me to speak to him alone. In regards to discharge planning she initially refused SNF (especially [facility]) then states she does not have transportation to [place] and definitely won't leave him there alone. She plans to stay 24/7 with him regardless of disposition. She has repeatedly given anecdotal evidence of poor outcomes in SNF and that no one is listening to her. As I left room she quietly tells me she is "going to convince him" that SNF might be best. <Which makes no since as SHE is refusing them> 09/23 complaining to RN that she has not seen provider in 3 days, I confronted her about this with RN in room and she recanted. She then explained no one explained the pathophysiology of HOW we were going to get rid of the swelling (she was only told we would give him a diuretic to get rid of excess fluid and monitor his weight and BNP (4) BPH (benign prostatic hyperplasia) Qualifiers: Lower urinary tract symptom detail: nocturia (7) Anemia Qualifiers: Other causes of anemia: nutritional, unspecified - Current Meds Current Meds: Current Medications Generic Name Dose Route Start Last Admin Trade Name Freq PRN Reason Stop Dose Admin Acetaminophen 650 mg 09/17/17 20:45 09/18/17 00:21 Tylenol PO 650 mg Q4HR PRN Administration Pain or Fever > 38C (100.4F) Albuterol/Ipratropium 3 ml 09/22/17 17:19 09/22/17 18:07 Duoneb INH 3 ml RTQID PRN Administration Shortness of Air/Wheezing Famotidine 20 mg 09/18/17 09:00 09/23/17 08:27 Pepcid PO 20 mg DAILY [facility] Administration Finasteride 5 mg 09/18/17 21:00 09/22/17 20:25 Proscar PO 5 mg QPM [facility] Administration Furosemide 40 mg 09/22/17 09:00 09/23/17 05:46 Lasix Inj 40 Mg Vial IVP 40 mg BIDDIURETIC [facility] Administration Guaifenesin 600 mg 09/17/17 23:00 09/23/17 08:27 Mucinex PO 600 mg BID [facility] Administration Cefepime HCl 2 gm/ Sodium 100 mls @ 200 mls/hr 09/20/17 20:00 09/23/17 09:05 Chloride IV Infused BID [facility] Infusion Levofloxacin 500 mg in 100 mls @ 100 mls/hr 09/20/17 18:00 09/22/17 18:48 Levaquin 500 Mg/100 Ml IV Infused Q24H [facility] Infusion Sodium Chloride 1,000 mls @ 30 mls/hr 09/21/17 19:55 09/23/17 07:57 Normal Saline 0.9% IV 30 mls/hr .[id number] [facility] Administration Magnesium Oxide 400 mg 09/20/17 21:00 09/23/17 08:27 Mag Ox PO 400 mg DAILYWM [facility] Administration Multivitamins 1 tab 09/21/17 08:00 09/23/17 08:27 Theragran PO 1 tab DAILYWM [facility] Administration Polyethylene Glycol 17 gm 09/18/17 09:00 09/23/17 08:28 Miralax PO Not Given DAILY [facility] Sodium Chloride 10 ml 09/17/17 20:45 09/23/17 05:47 Normal Saline Flush 0.9% IVP 10 ml PRN PRN Administration NEEDED PER PROVIDER ORDERS Sodium Chloride 10 ml 09/18/17 01:00 09/23/17 00:52 Normal Saline Flush 0.9% IVP Not Given 0100,0900,1700 [facility] Tamsulosin HCl 0.4 mg 09/17/17 21:00 09/22/17 20:25 Flomax PO 0.4 mg QPM [facility] Administration - Lab Result Fish Bone Diagrams: 09/23/17 05:48 09/23/17 05:48 - Additional Planning My Orders: My Active Orders 09/22/17 09:00 FUROSEMIDE INJ 40mg VIAL [LASIX INJ 40 mg VIAL] 40 mg IVP BIDDIURETIC 09/22/17 17:19 Ipratropium/Albuterol [Duoneb] 3 ml INH RTQID PRN 09/22/17 17:20 Nebulizer/MDI Tx. [RC] QID Resp Teach Nebulizer/MDI [RC] .ONCE 09/23/17 07:41 Daily Weight [RC] 0600 Subjective - Subjective Patient Reports: Feeling Better, Resting Comfortably (Occasional cough, no SOB at rest, fatigue unchanged. reports "he didn't sleep, he) Objective Vital Signs: Vital Signs - 24 hr 09/22/17 09/22/17 09/22/17 15:13 18:10 23:31 Temperature 36.7 C 36.7 C Heart Rate 74 Heart Rate [ 61 60 Brachial] Respiratory 18 18 18 Rate Blood Pressure 138/78 H 155/83 H [Right Radial artery] O2 Saturation 94 95 09/23/17 08:07 Temperature 36.3 C L Heart Rate Heart Rate [ 62 Brachial] Respiratory 19 Rate Blood Pressure 140/65 H [Right Radial artery] O2 Saturation 95 Oxygen O2 Source [With Activity] Room air O2 Source Room air I&O (Last 24 Hrs): Intake and Output Totals x24h 09/21/17 09/22/17 09/23/17 23:59 23:59 23:59 Intake Total 3623.000 2171.5 600.5 Output Total 1375 5775 2500 Balance 2248.000 -3603.5 -1899.5 General: No acute distress HEENT: Atraumatic, PERRLA, Mucous membr. moist/pink Neck: No JVD Neuro: Alert, Non Focal, Oriented Times 3 Cardiovascular: Other (irregularly irregular) Respiratory: Chest non-tender, No respiratory distress, Other (decreased breath sounds, very minimal in bases) Abdomen: Normal bowel sounds, Soft, No tenderness Extremities: No clubbing, No cyanosis, Other (dependent non-pitting edema in the BUE and abdomen) Skin: No rashes - Results Results: Laboratory Results WBC 8.3 x10^3/uL (4.8-10.8) 09/23/17 05:48 RBC 3.87 10^6/uL (4.70-6.10) L 09/23/17 05:48 Hgb 13.2 g/dL (14.0-18.0) L 09/23/17 05:48 Hct 39.1 % (42.0-52.0) L 09/23/17 05:48 MCV 101.0 fL (80.0-94.0) H 09/23/17 05:48 MCH 34.1 pg (27.0-31.0) H 09/23/17 05:48 MCHC 33.7 g/dL (32.0-36.0) 09/23/17 05:48 RDW 14.5 % (12.0-15.0) 09/23/17 05:48 Plt Count 390 10^3/uL (130-450) 09/23/17 05:48 MPV 7.3 fL (7.4-11.4) L 09/23/17 05:48 Neut # 7.1 10^3/uL (1.5-6.6) H 09/18/17 06:07 Lymph # 0.6 10^3/uL (1.5-3.5) L 09/18/17 06:07 [place] # 0.5 10^3/uL (0.0-1.0) 09/18/17 06:07 Eos # 0.0 10^3/uL (0.0-0.7) 09/18/17 06:07 Baso # 0.0 10^3/uL (0.0-0.1) 09/18/17 06:07 Absolute Nucleated RBC 0.00 x10^3/uL 09/18/17 06:07 Nucleated RBC % 0.0 /100WBC 09/18/17 06:07 Manual Slide Review Indicated 09/18/17 06:07 Platelet Estimate NORMAL (130-450,000) (NORMAL) 09/18/17 06:07 Platelet Morphology 1+ LARGE PLATELETS (NORMAL) 09/18/17 06:07 RBC Morph Micro Appear NORMAL APPEARANCE (NORMAL) 09/18/17 06:07 PT 52.1 secs (9.9-12.6) H 09/23/17 05:48 INR 4.9 (0.8-1.2) H* 09/23/17 05:48 Sodium 137 mmol/L (135-145) 09/23/17 05:48 Potassium 3.7 mmol/L (3.5-5.0) 09/23/17 05:48 Chloride 102 mmol/L (101-111) 09/23/17 05:48 Carbon Dioxide 27 mmol/L (21-32) 09/23/17 05:48 Anion Gap 8.0 (6-13) 09/23/17 05:48 BUN 20 mg/dL (6-20) 09/23/17 05:48 Creatinine 0.8 mg/dL (0.6-1.2) 09/23/17 05:48 Estimated GFR (MDRD) 92 (>89) 09/23/17 05:48 Glucose 99 mg/dL (70-100) 09/23/17 05:48 Lactic Acid 1.3 mmol/L (0.5-2.2) 09/17/17 19:05 Calcium 7.9 mg/dL (8.5-10.3) L 09/23/17 05:48 Magnesium 2.0 mg/dL (1.7-2.8) 09/17/17 19:05 Total Bilirubin 0.5 mg/dL (0.2-1.0) 09/17/17 19:05 AST 79 IU/L (10-42) H 09/17/17 19:05 ALT 50 IU/L (10-60) 09/17/17 19:05 Alkaline Phosphatase 47 IU/L (42-121) 09/17/17 19:05 Troponin I < 0.04 ng/mL (<0.49) 09/18/17 05:22 B-Natriuretic Peptide 523 pg/mL (5-100) H 09/21/17 05:45 Total Protein 6.5 g/dL (6.7-8.2) L 09/17/17 19:05 Albumin 3.3 g/dL (3.2-5.5) 09/17/17 19:05 Globulin 3.2 g/dL (2.1-4.2) 09/17/17 19:05 Albumin/Globulin Ratio 1.0 (1.0-2.2) 09/17/17 19:05 Lipase 22 U/L (22-51) 09/17/17 19:05 Vitamin B12 1075 pg/mL (180-914) H 09/18/17 06:07 Folate 21.20 ng/mL (5.90 - >24.8) 09/18/17 06:07 Urine Color YELLOW 09/19/17 04:55 Urine Clarity SL. CLOUDY (CLEAR) 09/19/17 04:55 Urine pH 5.5 PH (5.0-7.5) 09/19/17 04:55 Ur Specific [place] 1.025 (1.002-1.030) 09/19/17 04:55 Urine Protein 30 mg/dL (NEGATIVE) H 09/19/17 04:55 Urine Glucose (UA) NEGATIVE mg/dL (NEGATIVE) 09/19/17 04:55 Urine Ketones NEGATIVE mg/dL (NEGATIVE) 09/19/17 04:55 Urine Occult Blood LARGE (NEGATIVE) H 09/19/17 04:55 Urine Nitrite NEGATIVE (NEGATIVE) 09/19/17 04:55 Urine Bilirubin NEGATIVE (NEGATIVE) 09/19/17 04:55 Urine Urobilinogen 0.2 (NORMAL) E.U./dL (NORMAL) 09/19/17 04:55 Ur Leukocyte Esterase NEGATIVE (NEGATIVE) 09/19/17 04:55 Urine RBC 11-25 /HPF (0-5) H 09/19/17 04:55 Urine WBC 0-3 /HPF (0-3) 09/19/17 04:55 Ur Squamous Epith Cells RARE Squamous (<= Few) 09/19/17 04:55 Urine Crystals /LPF 09/19/17 04:55 Urine Bacteria None Seen /HPF (None Seen) 09/19/17 04:55 Urine Culture Comments NOT INDICATED 09/19/17 04:55 Influenza A (Rapid) Negative (Negative) 09/17/17 19:30 Influenza B (Rapid) Negative (Negative) 09/17/17 19:30 Influenza Types A,B Ag - 09/17/17 19:30
--- NOTE | 2017-09-23 12:47 | CT Report ---
CT CHEST WITHOUT CONTRAST: 09/23/2017 CLINICAL INDICATION: Persistent pneumonia despite therapy. TECHNIQUE: Axial CT images of the chest were obtained without intravenous contrast. COMPARISON: Chest x-ray 09/20/2017. FINDINGS: The heart and great vessels demonstrate atherosclerotic calcifications. Left subclavian pacemaker is in place. No hilar or mediastinal lymphadenopathy is appreciated, allowing for the lack of intravenous contrast enhancement. There are patchy right upper and lower lobe infiltrates present. Small bilateral effusions are present. No suspicious pulmonary nodule or mass lesion is appreciated. No pneumothorax. Limited evaluation of upper abdominal structures demonstrates normal adrenal glands. Osseous structures demonstrate degenerative changes and an old, healed L1 compression fracture. IMPRESSION: PATCHY RIGHT-SIDED INFILTRATES. SMALL PLEURAL EFFUSIONS. NO EVIDENCE OF INTERSTITIAL EDEMA OR UNDERLYING MASS LESION. In accordance with CT protocol optimization, one or more of the following dose reduction techniques were utilized for this exam: automated exposure control, adjustment of mA and/or KV based on patient size, or use of iterative reconstructive technique. TD: 09/23/2017 12:46
[2017-09-23] MEDS: IPRATROPIUM/ALBUTEROL 3 ML NEB INH PRN ×2 (13:25→20:16)
[2017-09-23] MEDS: levoFLOXacin 500 MG/100 ML 500 MG/100 ML BAG IV SCH (19:16)
[2017-09-23] MEDS: TAMSULOSIN 0.4 MG CAPSULE PO SCH (20:47)
[2017-09-23] MEDS: FINASTERIDE 5 MG TABLET PO SCH (20:47)
[2017-09-24 05:26] LABS: HGB - HEMOGLOBIN 12.1 g/dL (14.0-18.0); MEAN CORPUSCULAR HEMOGLOBIN 34.7 pg (27.0-31.0); MEAN CORPUSCULAR HGB CONC 34.6 g/dL (32.0-36.0); MEAN CORPUSCULAR VOLUME 100.2 fL (80.0-94.0); MEAN PLATELET VOLUME 6.5 fL (7.4-11.4); RED BLOOD COUNT 3.5 10^6/uL (4.70-6.10); WHITE BLOOD COUNT 11.3 x10^3/uL (4.8-10.8)
[2017-09-24 05:32] LABS: INR 4.2 (0.8-1.2); PT - PROTHROMBIN TIME 44.8 secs (9.9-12.6)
[2017-09-24 05:35] LABS: CALCIUM 8.2 mg/dL (8.5-10.3); CREATININE 0.8 mg/dL (0.6-1.2)
[2017-09-24] MEDS ORDERED: FUROSEMIDE 40 MG TABLET PO SCH (09:00)
[2017-09-24] MEDS ORDERED: FUROSEMIDE 20 MG TABLET PO SCH (09:00)
[2017-09-24] MEDS: FAMOTIDINE 20 MG TABLET PO SCH (09:39)
[2017-09-24] MEDS: MULTIVITAMIN TABLET PO SCH (09:39)
[2017-09-24] MEDS: MAGNESIUM OXIDE 400 MG TABLET PO SCH (09:39)
[2017-09-24] MEDS: guaiFENesin 600 MG TABLET PO SCH ×2 (09:39→20:36)
[2017-09-24] MEDS: CEFEPIME 2 GM in SODIUM CHLORIDE 0.9% MINIBAG 100 ML IV SCH (09:39)
[2017-09-24] MEDS: SODIUM CHLORIDE FLUSH 0.9% 10 ML SYRINGE IVP SCH ×3 (09:43→16:47)
[2017-09-24] MEDS: POLYETHYLENE GLYCOL 3350 17 GM PACKET PO SCH (09:43)
[2017-09-24] MEDS: IPRATROPIUM/ALBUTEROL 3 ML NEB INH PRN (11:15)
[2017-09-24] MEDS: SODIUM CHLORIDE 0.9% 1,000 ML IV SCH (16:46)
[2017-09-24] MEDS: AMPICILLIN/SULBACTAM 1.5 GM in SODIUM CHLORIDE 0.9% MINIBAG 100 ML IV SCH ×2 (16:47→21:36)
[2017-09-24] MEDS ORDERED: MECLIZINE 12.5 MG TABLET PO PRN (16:50)
--- NOTE | 2017-09-24 18:13 | PROVIDER PROGRESS NOTE ---
Assessment/Plan - Problem List (1) CAP (community acquired pneumonia) Qualifiers: Laterality: right Lung location: lower lobe of lung Qualified Code(s): J18.1 - Lobar pneumonia, unspecified organism Assessment/Plan: All sputum and blood cultures are neg to date, sputum has normal tito. Since CT shows persistent infiltrate, will widen coverage using Unasyn, for anaerobes (for possible aspiration). Will or chest PT. (2) Volume overload Assessment/Plan: No further iv hydration now. Clinically the patient is euvolemic. Will stop the po Lasix and allow fluid to equilibrate. Follow daily labs. (3) Weakness generalized Assessment/Plan: PT walked with Pt for the first time since admission. He will need a rolling walker. Will determine if he will need SNF or Home Health PT for possible DCh in 2-3 days. (4) Vertigo Assessment/Plan: Today, the told me that he complains of sudden spinning vertigo and has had this at home, leading to falls. His head CT showed no cerebellar abnormality or simusitis to be a cause. Will add Meclizine. - Current Meds Current Meds: Current Medications Generic Name Dose Route Start Last Admin Trade Name Freq PRN Reason Stop Dose Admin Acetaminophen 650 mg 09/17/17 20:45 09/18/17 00:21 Tylenol PO 650 mg Q4HR PRN Administration Pain or Fever > 38C (100.4F) Albuterol/Ipratropium 3 ml 09/22/17 17:19 09/24/17 11:15 Duoneb INH 3 ml RTQID PRN Administration Shortness of Air/Wheezing Famotidine 20 mg 09/18/17 09:00 09/24/17 09:39 Pepcid PO 20 mg DAILY [facility] Administration Finasteride 5 mg 09/18/17 21:00 09/23/17 20:47 Proscar PO 5 mg QPM [facility] Administration Guaifenesin 600 mg 09/17/17 23:00 09/24/17 09:39 Mucinex PO 600 mg BID [facility] Administration Sodium Chloride 1,000 mls @ 30 mls/hr 09/21/17 19:55 09/24/17 16:47 Normal Saline 0.9% IV 0 mls/hr .[id number] [facility] Infusion Ampicillin Sodium/Sulbactam 100 mls @ 200 mls/hr 09/24/17 16:00 09/24/17 16: 47 Sodium 1.5 gm/ Sodium Chloride IV 200 mls/hr Q6H [facility] Administration Magnesium Oxide 400 mg 09/20/17 21:00 09/24/17 09:39 Mag Ox PO 400 mg DAILYWM [facility] Administration Multivitamins 1 tab 09/21/17 08:00 09/24/17 09:39 Theragran PO 1 tab DAILYWM [facility] Administration Polyethylene Glycol 17 gm 09/18/17 09:00 09/24/17 09:43 Miralax PO Not Given DAILY [facility] Sodium Chloride 10 ml 09/17/17 20:45 09/23/17 05:47 Normal Saline Flush 0.9% IVP 10 ml PRN PRN Administration NEEDED PER PROVIDER ORDERS Sodium Chloride 10 ml 09/18/17 01:00 09/24/17 16:47 Normal Saline Flush 0.9% IVP Not Given 0100,0900,1700 [facility] Tamsulosin HCl 0.4 mg 09/17/17 21:00 09/23/17 20:47 Flomax PO 0.4 mg QPM [facility] Administration - Lab Result Fish Bone Diagrams: 09/25/17 05:32 09/25/17 05:32 - Additional Planning My Orders: My Active Orders 09/24/17 CUL, RESPIRATORY [RM] Urgent 09/24/17 10:28 [facility] 16:00 Ampicillin/Sulbactam [Unasyn] 1.5 gm Sodium Chloride 0.9% Minibag [Normal Saline 0.9% Minibag] 100 ml IV Q6H 09/24/17 16:50 Meclizine [Antivert] 12.5 mg PO Q6HR PRN 09/24/17 16:52 Miscellaneous Laboratory Order [LAB] Urgent 09/24/17 17:11 Miscellaenous Nursing Order [RC] Q[facility] 09/24/17 17:36 MISC TEST QUEST REFRIG [REFLAB] Routine Subjective - Subjective Patient Reports: Feeling Better, Resting Comfortably Nursing Reports: Other (Walked with PT for first time. Does sit up in chair.) Objective Vital Signs: Vital Signs - 24 hr 09/23/17 09/24/17 09/24/17 20:17 02:12 07:45 Temperature 37.0 C 36.7 C Heart Rate 71 Heart Rate [ 62 64 Brachial] Respiratory 20 18 19 Rate Blood Pressure 130/69 145/64 H [Right Brachial artery] O2 Saturation 95 97 09/24/17 09/24/17 09/24/17 11:15 13:40 15:22 Temperature 36.7 C 37.0 C Heart Rate 71 Heart Rate [ 63 64 Brachial] Respiratory 18 18 18 Rate Blood Pressure 115/62 136/57 H [Right Brachial artery] O2 Saturation 96 100 Oxygen O2 Source [With Activity] Room air O2 Source Room air I&O (Last 24 Hrs): Intake and Output Totals x24h 09/22/17 09/23/17 09/24/17 23:59 23:59 23:59 Intake Total 2171.5 1736.5 1741.0 Output Total 5775 3200 2525 Balance -3603.5 -1463.5 -784.0 General: Alert, Oriented x3 HEENT: Mucous membr. moist/pink Neck: Supple, No JVD Cardiovascular: Regular rate, No murmurs Respiratory: Other (Diminished R side) Abdomen: Soft Extremities: No edema - Results Results: Laboratory Results WBC 11.3 x10^3/uL (4.8-10.8) H 09/24/17 05:20 RBC 3.50 10^6/uL (4.70-6.10) L 09/24/17 05:20 Hgb 12.1 g/dL (14.0-18.0) L 09/24/17 05:20 Hct 35.1 % (42.0-52.0) L 09/24/17 05:20 MCV 100.2 fL (80.0-94.0) H 09/24/17 05:20 MCH 34.7 pg (27.0-31.0) H 09/24/17 05:20 MCHC 34.6 g/dL (32.0-36.0) 09/24/17 05:20 RDW 14.0 % (12.0-15.0) 09/24/17 05:20 Plt Count 390 10^3/uL (130-450) 09/24/17 05:20 MPV 6.5 fL (7.4-11.4) L 09/24/17 05:20 Neut # 7.1 10^3/uL (1.5-6.6) H 09/18/17 06:07 Lymph # 0.6 10^3/uL (1.5-3.5) L 09/18/17 06:07 [place] # 0.5 10^3/uL (0.0-1.0) 09/18/17 06:07 Eos # 0.0 10^3/uL (0.0-0.7) 09/18/17 06:07 Baso # 0.0 10^3/uL (0.0-0.1) 09/18/17 06:07 Absolute Nucleated RBC 0.00 x10^3/uL 09/18/17 06:07 Nucleated RBC % 0.0 /100WBC 09/18/17 06:07 Manual Slide Review Indicated 09/18/17 06:07 Platelet Estimate NORMAL (130-450,000) (NORMAL) 09/18/17 06:07 Platelet Morphology 1+ LARGE PLATELETS (NORMAL) 09/18/17 06:07 RBC Morph Micro Appear NORMAL APPEARANCE (NORMAL) 09/18/17 06:07 PT 44.8 secs (9.9-12.6) H 09/24/17 05:20 INR 4.2 (0.8-1.2) H 09/24/17 05:20 Sodium 136 mmol/L (135-145) 09/24/17 05:20 Potassium 3.9 mmol/L (3.5-5.0) 09/24/17 05:20 Chloride 99 mmol/L (101-111) L 09/24/17 05:20 Carbon Dioxide 27 mmol/L (21-32) 09/24/17 05:20 Anion Gap 10.0 (6-13) 09/24/17 05:20 BUN 21 mg/dL (6-20) H 09/24/17 05:20 Creatinine 0.8 mg/dL (0.6-1.2) 09/24/17 05:20 Estimated GFR (MDRD) 92 (>89) 09/24/17 05:20 Glucose 110 mg/dL (70-100) H 09/24/17 05:20 Lactic Acid 1.3 mmol/L (0.5-2.2) 09/17/17 19:05 Calcium 8.2 mg/dL (8.5-10.3) L 09/24/17 05:20 Magnesium 2.0 mg/dL (1.7-2.8) 09/17/17 19:05 Total Bilirubin 0.5 mg/dL (0.2-1.0) 09/17/17 19:05 AST 79 IU/L (10-42) H 09/17/17 19:05 ALT 50 IU/L (10-60) 09/17/17 19:05 Alkaline Phosphatase 47 IU/L (42-121) 09/17/17 19:05 Troponin I < 0.04 ng/mL (<0.49) 09/18/17 05:22 B-Natriuretic Peptide 523 pg/mL (5-100) H 09/21/17 05:45 Total Protein 6.5 g/dL (6.7-8.2) L 09/17/17 19:05 Albumin 3.3 g/dL (3.2-5.5) 09/17/17 19:05 Globulin 3.2 g/dL (2.1-4.2) 09/17/17 19:05 Albumin/Globulin Ratio 1.0 (1.0-2.2) 09/17/17 19:05 Lipase 22 U/L (22-51) 09/17/17 19:05 Vitamin B12 1075 pg/mL (180-914) H 09/18/17 06:07 Folate 21.20 ng/mL (5.90 - >24.8) 09/18/17 06:07 Urine Color YELLOW 09/19/17 04:55 Urine Clarity SL. CLOUDY (CLEAR) 09/19/17 04:55 Urine pH 5.5 PH (5.0-7.5) 09/19/17 04:55 Ur Specific [place] 1.025 (1.002-1.030) 09/19/17 04:55 Urine Protein 30 mg/dL (NEGATIVE) H 09/19/17 04:55 Urine Glucose (UA) NEGATIVE mg/dL (NEGATIVE) 09/19/17 04:55 Urine Ketones NEGATIVE mg/dL (NEGATIVE) 09/19/17 04:55 Urine Occult Blood LARGE (NEGATIVE) H 09/19/17 04:55 Urine Nitrite NEGATIVE (NEGATIVE) 09/19/17 04:55 Urine Bilirubin NEGATIVE (NEGATIVE) 09/19/17 04:55 Urine Urobilinogen 0.2 (NORMAL) E.U./dL (NORMAL) 09/19/17 04:55 Ur Leukocyte Esterase NEGATIVE (NEGATIVE) 09/19/17 04:55 Urine RBC 11-25 /HPF (0-5) H 09/19/17 04:55 Urine WBC 0-3 /HPF (0-3) 09/19/17 04:55 Ur Squamous Epith Cells RARE Squamous (<= Few) 09/19/17 04:55 Urine Crystals /LPF 09/19/17 04:55 Urine Bacteria None Seen /HPF (None Seen) 09/19/17 04:55 Urine Culture Comments NOT INDICATED 09/19/17 04:55 Influenza A (Rapid) Negative (Negative) 09/17/17 19:30 Influenza B (Rapid) Negative (Negative) 09/17/17 19:30 Influenza Types A,B Ag - 09/17/17 19:30
[2017-09-24] MEDS: FINASTERIDE 5 MG TABLET PO SCH (20:36)
[2017-09-24] MEDS: TAMSULOSIN 0.4 MG CAPSULE PO SCH (20:36)
[2017-09-25] MEDS: SODIUM CHLORIDE FLUSH 0.9% 10 ML SYRINGE IVP SCH ×3 (01:09→16:30)
[2017-09-25] MEDS: AMPICILLIN/SULBACTAM 1.5 GM in SODIUM CHLORIDE 0.9% MINIBAG 100 ML IV SCH ×4 (05:27→21:51)
[2017-09-25 05:41] LABS: BASOPHILS # (AUTO) 0.1 10^3/uL (0.0-0.1); BASOPHILS % (AUTO) 0.7 %; EOSINOPHILS # (AUTO) 0.2 10^3/uL (0.0-0.7); EOSINOPHILS % (AUTO) 1.9 %; HGB - HEMOGLOBIN 12.4 g/dL (14.0-18.0); LYMPHOCYTES # (AUTO) 1.7 10^3/uL (1.5-3.5); LYMPHOCYTES % (AUTO) 15.7 %; MEAN CORPUSCULAR HEMOGLOBIN 34.2 pg (27.0-31.0); MEAN CORPUSCULAR HGB CONC 33.6 g/dL (32.0-36.0); MEAN CORPUSCULAR VOLUME 101.7 fL (80.0-94.0); MEAN PLATELET VOLUME 6.8 fL (7.4-11.4); MONOCYTES # (AUTO) 1.3 10^3/uL (0.0-1.0); MONOCYTES % (AUTO) 11.4 %; NEUTROPHILS # (AUTO) 7.8 10^3/uL (1.5-6.6); NEUTROPHILS % (AUTO) 70.3 %; PLT - PLATELET COUNT 410 10^3/uL (130-450); RED BLOOD COUNT 3.63 10^6/uL (4.70-6.10); RED CELL DISTRIBUTION WIDTH 14.3 % (12.0-15.0); WHITE BLOOD COUNT 11.1 x10^3/uL (4.8-10.8)
[2017-09-25 05:55] LABS: ALBUMIN 2.6 g/dL (3.2-5.5); ALBUMIN/GLOBULIN RATIO 0.8 (1.0-2.2); BILIRUBIN,TOTAL 0.8 mg/dL (0.2-1.0); CALCIUM 7.9 mg/dL (8.5-10.3); CREATININE 0.9 mg/dL (0.6-1.2); TOTAL PROTEIN 5.7 g/dL (6.7-8.2)
[2017-09-25] MEDS: MAGNESIUM OXIDE 400 MG TABLET PO SCH (08:27)
[2017-09-25] MEDS: guaiFENesin 600 MG TABLET PO SCH ×2 (08:27→20:29)
[2017-09-25] MEDS: FAMOTIDINE 20 MG TABLET PO SCH (08:27)
[2017-09-25] MEDS: MULTIVITAMIN TABLET PO SCH (08:27)
[2017-09-25] MEDS: POLYETHYLENE GLYCOL 3350 17 GM PACKET PO SCH (08:30)
--- NOTE | 2017-09-25 09:23 | PROVIDER PROGRESS NOTE ---
Assessment/Plan - Problem List (1) CAP (community acquired pneumonia) Qualifiers: Laterality: right Lung location: lower lobe of lung Qualified Code(s): J18.1 - Lobar pneumonia, unspecified organism Assessment/Plan: Continue new broader spectrum iv antibiotic, Unasyn. Still no bacterial growth on any cultures. Will order chest PT to help mobilize sputum, which he still cannot cough up. CXR possibly tomorrow to assess new management. (2) Volume overload Assessment/Plan: Pt had a much better night sleep, with no interruptions for VS overnight. Pt has mild orthostasis. Will allow fluids po ad radha, but no iv hydration to avoid edema and no further po Lasix needed. (3) Weakness generalized Assessment/Plan: Continue PT. Will determine if DCh home or to SNF in 1-2 days. Discussed this with . (4) Vertigo Assessment/Plan: Pt on Meclizine now. Discussed with . - Current Meds Current Meds: Current Medications Generic Name Dose Route Start Last Admin Trade Name Freq PRN Reason Stop Dose Admin Acetaminophen 650 mg 09/17/17 20:45 09/18/17 00:21 Tylenol PO 650 mg Q4HR PRN Administration Pain or Fever > 38C (100.4F) Albuterol/Ipratropium 3 ml 09/22/17 17:19 09/24/17 11:15 Duoneb INH 3 ml RTQID PRN Administration Shortness of Air/Wheezing Famotidine 20 mg 09/18/17 09:00 09/25/17 08:27 Pepcid PO 20 mg DAILY [facility] Administration Finasteride 5 mg 09/18/17 21:00 09/24/17 20:36 Proscar PO 5 mg QPM [facility] Administration Guaifenesin 600 mg 09/17/17 23:00 09/25/17 08:27 Mucinex PO 600 mg BID [facility] Administration Sodium Chloride 1,000 mls @ 30 mls/hr 09/21/17 19:55 09/24/17 17:18 Normal Saline 0.9% IV 30 mls/hr .[id number] [facility] Infusion Ampicillin Sodium/Sulbactam 100 mls @ 200 mls/hr 09/24/17 16:00 09/25/17 06: 18 Sodium 1.5 gm/ Sodium Chloride IV Infused Q6H [facility] Infusion Magnesium Oxide 400 mg 09/20/17 21:00 09/25/17 08:27 Mag Ox PO 400 mg DAILYWM [facility] Administration Multivitamins 1 tab 09/21/17 08:00 09/25/17 08:27 Theragran PO 1 tab DAILYWM [facility] Administration Polyethylene Glycol 17 gm 09/18/17 09:00 09/25/17 08:30 Miralax PO Not Given DAILY [facility] Sodium Chloride 10 ml 09/17/17 20:45 09/23/17 05:47 Normal Saline Flush 0.9% IVP 10 ml PRN PRN Administration NEEDED PER PROVIDER ORDERS Sodium Chloride 10 ml 09/18/17 01:00 09/25/17 01:09 Normal Saline Flush 0.9% IVP Not Given 0100,0900,1700 [facility] Tamsulosin HCl 0.4 mg 09/17/17 21:00 09/24/17 20:36 Flomax PO 0.4 mg QPM [facility] Administration - Lab Result Fish Bone Diagrams: 09/25/17 05:32 09/25/17 05:32 - Additional Planning My Orders: My Active Orders 09/24/17 10:28 [facility] 16:00 Ampicillin/Sulbactam [Unasyn] 1.5 gm Sodium Chloride 0.9% Minibag [Normal Saline 0.9% Minibag] 100 ml IV Q6H 09/24/17 16:50 Meclizine [Antivert] 12.5 mg PO Q6HR PRN 09/24/17 16:52 Miscellaneous Laboratory Order [LAB] Urgent 09/24/17 17:11 Miscellaenous Nursing Order [RC] Q[facility] 09/24/17 17:36 MISC TEST QUEST REFRIG [REFLAB] Routine 09/25/17 07:35 Postural [Vital Signs - Orthostatic] [RC] DAILY 09/25/17 08:05 Chest [CPT - Chest Physical Therapy] [RC] TID Subjective - Subjective Patient Reports: Feeling Better, Other (Able to feed himself, sitting in a chair ) Nursing Reports: Other (Mild orthostasis) Objective Vital Signs: Vital Signs - 24 hr 09/24/17 09/24/17 09/24/17 11:15 13:40 15:22 Temperature 36.7 C 37.0 C Heart Rate 71 Heart Rate [ 63 64 Brachial] Heart Rate [ Standing (After 1 Minute)] Heart Rate [ Supine] Respiratory 18 18 18 Rate Blood Pressure 115/62 136/57 H [Right Brachial artery] Blood Pressure [Standing ( After 1 Minute) ] Blood Pressure [Supine] O2 Saturation 96 100 09/24/17 09/25/17 09/25/17 23:30 08:31 08:32 Temperature 36.9 C Heart Rate Heart Rate [ 62 Brachial] Heart Rate [ 62 Standing (After 1 Minute)] Heart Rate [ 62 Supine] Respiratory 16 Rate Blood Pressure 125/65 [Right Brachial artery] Blood Pressure 129/69 [Standing ( After 1 Minute) ] Blood Pressure 152/72 H [Supine] O2 Saturation 96 Oxygen O2 Source [With Activity] Room air O2 Source Room air I&O (Last 24 Hrs): Intake and Output Totals x24h 09/23/17 09/24/17 09/25/17 23:59 23:59 23:59 Intake Total 1736.5 2291.0 100 Output Total 3200 3325 1300 Balance -1463.5 -1034.0 -1200 General: Alert, Oriented x3 HEENT: Mucous membr. moist/pink Neck: Supple, No JVD Cardiovascular: Regular rate Respiratory: No respiratory distress Abdomen: Soft Extremities: No edema - Results Results: Laboratory Results WBC 11.1 x10^3/uL (4.8-10.8) H 09/25/17 05:32 RBC 3.63 10^6/uL (4.70-6.10) L 09/25/17 05:32 Hgb 12.4 g/dL (14.0-18.0) L 09/25/17 05:32 Hct 37.0 % (42.0-52.0) L 09/25/17 05:32 MCV 101.7 fL (80.0-94.0) H 09/25/17 05:32 MCH 34.2 pg (27.0-31.0) H 09/25/17 05:32 MCHC 33.6 g/dL (32.0-36.0) 09/25/17 05:32 RDW 14.3 % (12.0-15.0) 09/25/17 05:32 Plt Count 410 10^3/uL (130-450) 09/25/17 05:32 MPV 6.8 fL (7.4-11.4) L 09/25/17 05:32 Neut # 7.8 10^3/uL (1.5-6.6) H 09/25/17 05:32 Lymph # 1.7 10^3/uL (1.5-3.5) 09/25/17 05:32 [place] # 1.3 10^3/uL (0.0-1.0) H 09/25/17 05:32 Eos # 0.2 10^3/uL (0.0-0.7) 09/25/17 05:32 Baso # 0.1 10^3/uL (0.0-0.1) 09/25/17 05:32 Absolute Nucleated RBC 0.00 x10^3/uL 09/25/17 05:32 Nucleated RBC % 0.0 /100WBC 09/25/17 05:32 Manual Slide Review Indicated 09/18/17 06:07 Platelet Estimate NORMAL (130-450,000) (NORMAL) 09/18/17 06:07 Platelet Morphology 1+ LARGE PLATELETS (NORMAL) 09/18/17 06:07 RBC Morph Micro Appear NORMAL APPEARANCE (NORMAL) 09/18/17 06:07 PT 44.8 secs (9.9-12.6) H 09/24/17 05:20 INR 4.2 (0.8-1.2) H 09/24/17 05:20 Sodium 135 mmol/L (135-145) 09/25/17 05:32 Potassium 3.8 mmol/L (3.5-5.0) 09/25/17 05:32 Chloride 100 mmol/L (101-111) L 09/25/17 05:32 Carbon Dioxide 29 mmol/L (21-32) 09/25/17 05:32 Anion Gap 6.0 (6-13) 09/25/17 05:32 BUN 22 mg/dL (6-20) H 09/25/17 05:32 Creatinine 0.9 mg/dL (0.6-1.2) 09/25/17 05:32 Estimated GFR (MDRD) 80 (>89) L 09/25/17 05:32 Glucose 104 mg/dL (70-100) H 09/25/17 05:32 Lactic Acid 1.3 mmol/L (0.5-2.2) 09/17/17 19:05 Calcium 7.9 mg/dL (8.5-10.3) L 09/25/17 05:32 Magnesium 2.2 mg/dL (1.7-2.8) 09/25/17 05:32 Total Bilirubin 0.8 mg/dL (0.2-1.0) 09/25/17 05:32 AST 27 IU/L (10-42) 09/25/17 05:32 ALT 31 IU/L (10-60) 09/25/17 05:32 Alkaline Phosphatase 70 IU/L (42-121) 09/25/17 05:32 Troponin I < 0.04 ng/mL (<0.49) 09/18/17 05:22 B-Natriuretic Peptide 523 pg/mL (5-100) H 09/21/17 05:45 Total Protein 5.7 g/dL (6.7-8.2) L 09/25/17 05:32 Albumin 2.6 g/dL (3.2-5.5) L 09/25/17 05:32 Globulin 3.1 g/dL (2.1-4.2) 09/25/17 05:32 Albumin/Globulin Ratio 0.8 (1.0-2.2) L 09/25/17 05:32 Lipase 22 U/L (22-51) 09/17/17 19:05 Vitamin B12 1075 pg/mL (180-914) H 09/18/17 06:07 Folate 21.20 ng/mL (5.90 - >24.8) 09/18/17 06:07 Urine Color YELLOW 09/19/17 04:55 Urine Clarity SL. CLOUDY (CLEAR) 09/19/17 04:55 Urine pH 5.5 PH (5.0-7.5) 09/19/17 04:55 Ur Specific [place] 1.025 (1.002-1.030) 09/19/17 04:55 Urine Protein 30 mg/dL (NEGATIVE) H 09/19/17 04:55 Urine Glucose (UA) NEGATIVE mg/dL (NEGATIVE) 09/19/17 04:55 Urine Ketones NEGATIVE mg/dL (NEGATIVE) 09/19/17 04:55 Urine Occult Blood LARGE (NEGATIVE) H 09/19/17 04:55 Urine Nitrite NEGATIVE (NEGATIVE) 09/19/17 04:55 Urine Bilirubin NEGATIVE (NEGATIVE) 09/19/17 04:55 Urine Urobilinogen 0.2 (NORMAL) E.U./dL (NORMAL) 09/19/17 04:55 Ur Leukocyte Esterase NEGATIVE (NEGATIVE) 09/19/17 04:55 Urine RBC 11-25 /HPF (0-5) H 09/19/17 04:55 Urine WBC 0-3 /HPF (0-3) 09/19/17 04:55 Ur Squamous Epith Cells RARE Squamous (<= Few) 09/19/17 04:55 Urine Crystals /LPF 09/19/17 04:55 Urine Bacteria None Seen /HPF (None Seen) 09/19/17 04:55 Urine Culture Comments NOT INDICATED 09/19/17 04:55 Influenza A (Rapid) Negative (Negative) 09/17/17 19:30 Influenza B (Rapid) Negative (Negative) 09/17/17 19:30 Influenza Types A,B Ag - 09/17/17 19:30
[2017-09-25] MEDS: TAMSULOSIN 0.4 MG CAPSULE PO SCH (20:29)
[2017-09-25] MEDS: FINASTERIDE 5 MG TABLET PO SCH (20:29)
[2017-09-26] MEDS: AMPICILLIN/SULBACTAM 1.5 GM in SODIUM CHLORIDE 0.9% MINIBAG 100 ML IV SCH ×2 (04:49→10:06)
[2017-09-26] MEDS: SODIUM CHLORIDE 0.9% 1,000 ML IV SCH (04:50)
[2017-09-26] MEDS: SODIUM CHLORIDE FLUSH 0.9% 10 ML SYRINGE IVP SCH ×3 (05:43→21:29)
[2017-09-26 05:53] LABS: BASOPHILS # (AUTO) 0.1 10^3/uL (0.0-0.1); BASOPHILS % (AUTO) 0.7 %; EOSINOPHILS # (AUTO) 0.2 10^3/uL (0.0-0.7); EOSINOPHILS % (AUTO) 2.1 %; HGB - HEMOGLOBIN 12.6 g/dL (14.0-18.0); LYMPHOCYTES # (AUTO) 2.2 10^3/uL (1.5-3.5); LYMPHOCYTES % (AUTO) 25.3 %; MEAN CORPUSCULAR HEMOGLOBIN 33.8 pg (27.0-31.0); MEAN CORPUSCULAR HGB CONC 33.2 g/dL (32.0-36.0); MEAN CORPUSCULAR VOLUME 101.6 fL (80.0-94.0); MEAN PLATELET VOLUME 6.9 fL (7.4-11.4); MONOCYTES # (AUTO) 0.9 10^3/uL (0.0-1.0); MONOCYTES % (AUTO) 10.6 %; NEUTROPHILS # (AUTO) 5.4 10^3/uL (1.5-6.6); NEUTROPHILS % (AUTO) 61.3 %; PLT - PLATELET COUNT 422 10^3/uL (130-450); RED BLOOD COUNT 3.73 10^6/uL (4.70-6.10); RED CELL DISTRIBUTION WIDTH 14.5 % (12.0-15.0); WHITE BLOOD COUNT 8.8 x10^3/uL (4.8-10.8)
[2017-09-26 05:56] LABS: ALBUMIN 2.6 g/dL (3.2-5.5); ALBUMIN/GLOBULIN RATIO 0.7 (1.0-2.2); BILIRUBIN,TOTAL 0.7 mg/dL (0.2-1.0); CALCIUM 8.1 mg/dL (8.5-10.3); CREATININE 0.8 mg/dL (0.6-1.2); TOTAL PROTEIN 6.1 g/dL (6.7-8.2)
[2017-09-26] MEDS: MULTIVITAMIN TABLET PO SCH (10:06)
[2017-09-26] MEDS: MAGNESIUM OXIDE 400 MG TABLET PO SCH (10:07)
[2017-09-26] MEDS: guaiFENesin 600 MG TABLET PO SCH ×2 (10:07→21:28)
[2017-09-26] MEDS: FAMOTIDINE 20 MG TABLET PO SCH (10:07)
[2017-09-26] MEDS: POLYETHYLENE GLYCOL 3350 17 GM PACKET PO SCH (10:07)
--- NOTE | 2017-09-26 10:37 | XRAY Report ---
TWO VIEW CHEST: 09/26/2017 CLINICAL INDICATION: Followup pneumonia. COMPARISON: Frontal and lateral views of the chest are compared to previous films of 09/20/[address] 09/23/2017. FINDINGS: The cardiac silhouette is within normal limits. Left subclavian pacemaker is stable. The right upper lobe infiltrate is significantly improved. Left basilar airspace disease has resolved. Pleural effusions are decreasing. No pneumothorax. IMPRESSION: SIGNIFICANT INTERVAL IMPROVEMENT IN BILATERAL INFILTRATES. DECREASING EFFUSIONS. TD: 09/26/2017 10:31
--- NOTE | 2017-09-26 15:03 | PROVIDER PROGRESS NOTE ---
Assessment/Plan - Problem List (1) CAP (community acquired pneumonia) Qualifiers: Laterality: right Lung location: lower lobe of lung Qualified Code(s): J18.1 - Lobar pneumonia, unspecified organism Assessment/Plan: Infiltrates and effusions improved by CXR done today. Will change to po Augmentin to assess if any return of fever or worsening chest exam, before discharge (probably) tomorrow, and to decrease salt load (see below ). (2) Volume overload Assessment/Plan: The patient has new HTN and had alot of urine output with neg fluid balance for several days. I suspect these are from the high salt load of his Unasyn, which has 1.5 gm of sodium, he gets this 4 times a day. Will change to po antibiotics therefore. (3) Weakness generalized Assessment/Plan: The patient is able to sit up and feed himself and has started PT but is still much weaker than his baseline from 3-4 weeks ago. This is what the is referring to when she says he is "no better". I have, and Physical Therapist ( Vida) and the Nursing Livestock Yard Supervisor (Baljinder) and Chemical Operations Specialist (Cathryn) have, explained to her that strengthening requires further PT but not necessarily in an acute hospital setting. The patient will likely be medically cleared and ready for discharge tomorrow. (4) Vertigo Assessment/Plan: No complaints of vertigo since Meclizine on a scheduled basis started 3 days ago. - Current Meds Current Meds: Current Medications Generic Name Dose Route Start Last Admin Trade Name Freq PRN Reason Stop Dose Admin Acetaminophen 650 mg 09/17/17 20:45 09/18/17 00:21 Tylenol PO 650 mg Q4HR PRN Administration Pain or Fever > 38C (100.4F) Albuterol/Ipratropium 3 ml 09/22/17 17:19 09/24/17 11:15 Duoneb INH 3 ml RTQID PRN Administration Shortness of Air/Wheezing Famotidine 20 mg 09/18/17 09:00 09/26/17 10:07 Pepcid PO 20 mg DAILY [facility] Administration Finasteride 5 mg 09/18/17 21:00 09/25/17 20:29 Proscar PO 5 mg QPM [facility] Administration Guaifenesin 600 mg 09/17/17 23:00 09/26/17 10:07 Mucinex PO 600 mg BID [facility] Administration Multivitamins 1 tab 09/21/17 08:00 09/26/17 10:06 Theragran PO 1 tab DAILYWM [facility] Administration Polyethylene Glycol 17 gm 09/18/17 09:00 09/26/17 10:07 Miralax PO Not Given DAILY [facility] Sodium Chloride 10 ml 09/17/17 20:45 09/23/17 05:47 Normal Saline Flush 0.9% IVP 10 ml PRN PRN Administration NEEDED PER PROVIDER ORDERS Sodium Chloride 10 ml 09/18/17 01:00 09/26/17 10:09 Normal Saline Flush 0.9% IVP Not Given 0100,0900,1700 BR[facility] Tamsulosin HCl 0.4 mg 09/17/17 21:00 09/25/17 20:29 Flomax PO 0.4 mg QPM [facility] Administration - Lab Result Fish Bone Diagrams: 09/26/17 05:35 09/26/17 05:35 - Additional Planning My Orders: My Active Orders 09/26/17 21:00 Amox/Clav 875/125 [Augmentin 875/125] 1 tab PO BID Subjective - Subjective Patient Reports: No Complaints Nursing Reports: No Complaints, Other (The is stating today that the patient "has gotten no better since admission", she is requesting various kinds of help at home, then later has agreed to consider having him got to a SNF for further PT and strengthening. The patient was able to walk 800 ft using a front wheel walker but no stairs yet, which they have at home.) Objective Vital Signs: Vital Signs - 24 hr 09/25/17 09/25/17 09/25/17 16:40 17:45 21:08 Temperature 36.7 C 36.8 C Heart Rate 60 Heart Rate [ 60 65 Brachial] Heart Rate [ Standing (After 1 Minute)] Heart Rate [ Supine] Respiratory 16 16 20 Rate Blood Pressure 126/67 134/72 H [Right Brachial artery] Blood Pressure [Standing ( After 1 Minute) ] Blood Pressure [Supine] O2 Saturation 97 98 09/25/17 09/26/17 09/26/17 23:30 08:05 08:09 Temperature 36.8 C 36.6 C Heart Rate 63 Heart Rate [ 59 L 60 Brachial] Heart Rate [ Standing (After 1 Minute)] Heart Rate [ Supine] Respiratory 18 14 20 Rate Blood Pressure 142/68 H 154/77 H [Right Brachial artery] Blood Pressure [Standing ( After 1 Minute) ] Blood Pressure [Supine] O2 Saturation 94 96 09/26/17 09/26/17 08:24 14:19 Temperature Heart Rate 63 Heart Rate [ Brachial] Heart Rate [ 62 Standing (After 1 Minute)] Heart Rate [ 60 Supine] Respiratory 20 Rate Blood Pressure [Right Brachial artery] Blood Pressure 157/68 H [Standing ( After 1 Minute) ] Blood Pressure 154/77 H [Supine] O2 Saturation Oxygen O2 Source [With Activity] Room air O2 Source Room air I&O (Last 24 Hrs): Intake and Output Totals x24h 09/24/17 09/25/17 09/26/17 23:59 23:59 23:59 Intake Total 2291.0 1340 1882.0 Output Total 3325 2525 2060 Balance -1034.0 -1185 -178.0 General: Alert, No acute distress HEENT: Atraumatic, Mucous membr. moist/pink Neck: Supple, No JVD Neuro: Non Focal Cardiovascular: Regular rate, No murmurs Respiratory: Other (R base fine rales) Abdomen: Soft Extremities: No edema - Results Results: Laboratory Results WBC 8.8 x10^3/uL (4.8-10.8) 09/26/17 05:35 RBC 3.73 10^6/uL (4.70-6.10) L 09/26/17 05:35 Hgb 12.6 g/dL (14.0-18.0) L 09/26/17 05:35 Hct 37.9 % (42.0-52.0) L 09/26/17 05:35 MCV 101.6 fL (80.0-94.0) H 09/26/17 05:35 MCH 33.8 pg (27.0-31.0) H 09/26/17 05:35 MCHC 33.2 g/dL (32.0-36.0) 09/26/17 05:35 RDW 14.5 % (12.0-15.0) 09/26/17 05:35 Plt Count 422 10^3/uL (130-450) 09/26/17 05:35 MPV 6.9 fL (7.4-11.4) L 09/26/17 05:35 Neut # 5.4 10^3/uL (1.5-6.6) 09/26/17 05:35 Lymph # 2.2 10^3/uL (1.5-3.5) 09/26/17 05:35 [place] # 0.9 10^3/uL (0.0-1.0) 09/26/17 05:35 Eos # 0.2 10^3/uL (0.0-0.7) 09/26/17 05:35 Baso # 0.1 10^3/uL (0.0-0.1) 09/26/17 05:35 Absolute Nucleated RBC 0.02 x10^3/uL 09/26/17 05:35 Nucleated RBC % 0.2 /100WBC 09/26/17 05:35 Manual Slide Review Indicated 09/18/17 06:07 Platelet Estimate NORMAL (130-450,000) (NORMAL) 09/18/17 06:07 Platelet Morphology 1+ LARGE PLATELETS (NORMAL) 09/18/17 06:07 RBC Morph Micro Appear NORMAL APPEARANCE (NORMAL) 09/18/17 06:07 PT 44.8 secs (9.9-12.6) H 09/24/17 05:20 INR 4.2 (0.8-1.2) H 09/24/17 05:20 Sodium 136 mmol/L (135-145) 09/26/17 05:35 Potassium 4.2 mmol/L (3.5-5.0) 09/26/17 05:35 Chloride 102 mmol/L (101-111) 09/26/17 05:35 Carbon Dioxide 29 mmol/L (21-32) 09/26/17 05:35 Anion Gap 5.0 (6-13) L 09/26/17 05:35 BUN 23 mg/dL (6-20) H 09/26/17 05:35 Creatinine 0.8 mg/dL (0.6-1.2) 09/26/17 05:35 Estimated GFR (MDRD) 92 (>89) 09/26/17 05:35 Glucose 96 mg/dL (70-100) 09/26/17 05:35 Lactic Acid 1.3 mmol/L (0.5-2.2) 09/17/17 19:05 Calcium 8.1 mg/dL (8.5-10.3) L 09/26/17 05:35 Magnesium 2.2 mg/dL (1.7-2.8) 09/25/17 05:32 Total Bilirubin 0.7 mg/dL (0.2-1.0) 09/26/17 05:35 AST 23 IU/L (10-42) 09/26/17 05:35 ALT 27 IU/L (10-60) 09/26/17 05:35 Alkaline Phosphatase 70 IU/L (42-121) 09/26/17 05:35 Troponin I < 0.04 ng/mL (<0.49) 09/18/17 05:22 B-Natriuretic Peptide 523 pg/mL (5-100) H 09/21/17 05:45 Total Protein 6.1 g/dL (6.7-8.2) L 09/26/17 05:35 Albumin 2.6 g/dL (3.2-5.5) L 09/26/17 05:35 Globulin 3.5 g/dL (2.1-4.2) 09/26/17 05:35 Albumin/Globulin Ratio 0.7 (1.0-2.2) L 09/26/17 05:35 Lipase 22 U/L (22-51) 09/17/17 19:05 Vitamin B12 1075 pg/mL (180-914) H 09/18/17 06:07 Folate 21.20 ng/mL (5.90 - >24.8) 09/18/17 06:07 Urine Color YELLOW 09/19/17 04:55 Urine Clarity SL. CLOUDY (CLEAR) 09/19/17 04:55 Urine pH 5.5 PH (5.0-7.5) 09/19/17 04:55 Ur Specific [place] 1.025 (1.002-1.030) 09/19/17 04:55 Urine Protein 30 mg/dL (NEGATIVE) H 09/19/17 04:55 Urine Glucose (UA) NEGATIVE mg/dL (NEGATIVE) 09/19/17 04:55 Urine Ketones NEGATIVE mg/dL (NEGATIVE) 09/19/17 04:55 Urine Occult Blood LARGE (NEGATIVE) H 09/19/17 04:55 Urine Nitrite NEGATIVE (NEGATIVE) 09/19/17 04:55 Urine Bilirubin NEGATIVE (NEGATIVE) 09/19/17 04:55 Urine Urobilinogen 0.2 (NORMAL) E.U./dL (NORMAL) 09/19/17 04:55 Ur Leukocyte Esterase NEGATIVE (NEGATIVE) 09/19/17 04:55 Urine RBC 11-25 /HPF (0-5) H 09/19/17 04:55 Urine WBC 0-3 /HPF (0-3) 09/19/17 04:55 Ur Squamous Epith Cells RARE Squamous (<= Few) 09/19/17 04:55 Urine Crystals /LPF 09/19/17 04:55 Urine Bacteria None Seen /HPF (None Seen) 09/19/17 04:55 Urine Culture Comments NOT INDICATED 09/19/17 04:55 Influenza A (Rapid) Negative (Negative) 09/17/17 19:30 Influenza B (Rapid) Negative (Negative) 09/17/17 19:30 Influenza Types A,B Ag - 09/17/17 19:30
--- NOTE | 2017-09-26 16:07 | Discharge Plan ---
"Discharge Plan for SNF / [facility] - DC Plan and Transition Orders Disposition: 03 SNF DC/Xfer Condition: Stable SNF Transition Orders: Admit to: [facility] under the care of Francisca Sauceda Discharge Diagnosis: 1) Community acquired RUL and LLL pneumonia with bilateral pleural effusions 2) Volume overload, improved 3) Weakness, generalized 4) Vertigo 5) Frequent falls recently 6) Afib, on Coumadin, with backup pacemaker 7) BPH 8) Code status: Full Code Medicare Certification: I certify that Post Hospital alf care is medically necessary on a continuing basis for any of the conditions for which she/he is receiving care during hospitalization. Notify PCP of admission and forward orders to primary provider for signature. Weight on admission and weekly. Call PCP immediately if weight increases by 5 pounds or if patient develops dyspnea, chest pain/tightness or edema. House Bowel Program: Yes If no BM after 2 days, nurse may give M.O.M. 30ml PO PRN and /or ducolax Supp 1 [place] and /or LAUREN 250mg P.O., and/or senna 1-2 tabs PO. On day 3 nurse may give repeat above order until residents constipation is resolved. Immunizations: Annual Influenza Vaccine: Yes. (between Mar 01 and September 28.) Unless allergy or already given Two-Step PPD: Yes per [facility] [phone] or appropriate documentation of approved exceptions Treatments & Other Orders: INR blood test every Mon, Wed, Fri , to keep INR 2.0- 3.0 while on Coumadin Oxygen Orders: None Lab Tests or X-Rays Orders: None Orthopedic Orders: None Medications: PLEASE REFER TO THE DISCHARGE MEDICATION LIST. Allergies and Adverse Reactions: Allergies Allergy/AdvReac Type Severity Reaction Status Date / Time No Known Drug Allergies Allergy Verified 09/17/17 17:36 - Medications New Prescriptions: Acetaminophen [Tylenol] 650 mg PO Q4HR PRN #10 tablet PRN Reason: Pain Or Fever > 38c (100.4f) guaiFENesin/DEXTROMETHORPHAN [Robitussin Dm] 10 ml PO Q6HR PRN #100 ml PRN Reason: Cough Amox/Clav 875/125 [Augmentin 875/125] 1 tab PO BID #14 tablet guaiFENesin [Mucinex] 600 mg PO BID #8 tablet Meclizine [Antivert] 12.5 mg PO Q6H PRN #40 tablet PRN Reason: Dizziness - Diet Type: No added salt Texture: Regular Liquids: Thin May have monthly special meal: Yes - Therapies | Activity Therapy: Evaluation | Treat if indicated: Speech, PT, OT Rehabilitation Potential: Maximize functional status Activity: Activity as Tolerated Weight Bearing: Full Weight Assistance Devices: Walker"
[2017-09-26] MEDS: WARFARIN 2.5 MG TABLET PO SCH ×2 (17:51→17:58)
[2017-09-26 18:16] LABS: INR 1.7 (0.8-1.2); PT - PROTHROMBIN TIME 19.1 secs (9.9-12.6)
[2017-09-26] MEDS: FINASTERIDE 5 MG TABLET PO SCH (21:28)
[2017-09-26] MEDS: TAMSULOSIN 0.4 MG CAPSULE PO SCH (21:28)
[2017-09-26] MEDS: AMOX/CLAV 875 MG/125 MG TABLET PO SCH (21:29)
[2017-09-27] MEDS: SODIUM CHLORIDE FLUSH 0.9% 10 ML SYRINGE IVP SCH ×3 (02:01→21:58)
[2017-09-27 05:46] LABS: BASOPHILS # (AUTO) 0.1 10^3/uL (0.0-0.1); BASOPHILS % (AUTO) 0.7 %; EOSINOPHILS # (AUTO) 0.1 10^3/uL (0.0-0.7); EOSINOPHILS % (AUTO) 1.5 %; LYMPHOCYTES # (AUTO) 2.4 10^3/uL (1.5-3.5); LYMPHOCYTES % (AUTO) 28.3 %; MEAN CORPUSCULAR HEMOGLOBIN 34.4 pg (27.0-31.0); MEAN CORPUSCULAR HGB CONC 33.6 g/dL (32.0-36.0); MEAN CORPUSCULAR VOLUME 102.2 fL (80.0-94.0); MEAN PLATELET VOLUME 6.8 fL (7.4-11.4); MONOCYTES # (AUTO) 0.8 10^3/uL (0.0-1.0); MONOCYTES % (AUTO) 9.5 %; NEUTROPHILS # (AUTO) 5.1 10^3/uL (1.5-6.6); PLT - PLATELET COUNT 432 10^3/uL (130-450); RED BLOOD COUNT 3.51 10^6/uL (4.70-6.10); RED CELL DISTRIBUTION WIDTH 14.3 % (12.0-15.0); WHITE BLOOD COUNT 8.5 x10^3/uL (4.8-10.8)
[2017-09-27 05:47] LABS: INR 1.7 (0.8-1.2); PT - PROTHROMBIN TIME 18.4 secs (9.9-12.6)
[2017-09-27 05:54] LABS: ALBUMIN 2.5 g/dL (3.2-5.5); ALBUMIN/GLOBULIN RATIO 0.8 (1.0-2.2); BILIRUBIN,TOTAL 0.7 mg/dL (0.2-1.0); CALCIUM 8.1 mg/dL (8.5-10.3); CREATININE 0.8 mg/dL (0.6-1.2); TOTAL PROTEIN 5.6 g/dL (6.7-8.2)
[2017-09-27] MEDS: POLYETHYLENE GLYCOL 3350 17 GM PACKET PO SCH (07:57)
[2017-09-27] MEDS: guaiFENesin 600 MG TABLET PO SCH ×2 (08:01→21:58)
[2017-09-27] MEDS: FAMOTIDINE 20 MG TABLET PO SCH (08:02)
[2017-09-27] MEDS: AMOX/CLAV 875 MG/125 MG TABLET PO SCH ×2 (08:02→21:58)
[2017-09-27] MEDS: MULTIVITAMIN TABLET PO SCH (08:02)
[2017-09-27] MEDS ORDERED: WARFARIN 2.5 MG TABLET PO SCH (09:00)
[2017-09-27] MEDS: WARFARIN 2.5 MG TABLET PO SCH (10:09)
--- NOTE | 2017-09-27 13:14 | Discharge Plan ---
Discharge Plan Disposition: Home, Self Care Condition: Poor Prescriptions: Acetaminophen [Tylenol] 650 mg PO Q4HR PRN #10 tablet PRN Reason: Pain Or Fever > 38c (100.4f) guaiFENesin/DEXTROMETHORPHAN [Robitussin Dm] 10 ml PO Q6HR PRN #100 ml PRN Reason: Cough Amox/Clav 875/125 [Augmentin 875/125] 1 tab PO BID #14 tablet guaiFENesin [Mucinex] 600 mg PO BID #8 tablet Meclizine [Antivert] 12.5 mg PO Q6H PRN #40 tablet PRN Reason: Dizziness Diet: Regular Activity Restrictions: Activity as Tolerated Shower Restrictions: No Driving Restrictions: Yes (No driving til claered by Primary Care Provider.) Assistance Devices: Walker Weight Bearing: Full Weight Instruction Topics: Pneumonia Additional Instructions or Follow Up instructions: See a Primary Care Provider within 1 week to assume the management of your Coumadin and INR tests. Take the antibiotic Augmentin til the pills are finished. Follow the list of current advised medications, those are what you should take. Outpatient Physical Therapy and Occupational Therapy has been prescribed for you. You may do this at the facility of your choice. Follow-Up Care: Outpatient Rehab - PT, Outpatient Rehab - OT No Smoking: If you smoke, Please STOP! Call for help.
[2017-09-27] MEDS: TAMSULOSIN 0.4 MG CAPSULE PO SCH (21:58)
[2017-09-27] MEDS: FINASTERIDE 5 MG TABLET PO SCH (21:58)
[2017-09-28] MEDS: SODIUM CHLORIDE FLUSH 0.9% 10 ML SYRINGE IVP SCH ×3 (03:44→20:17)
--- NOTE | 2017-09-28 07:36 | PROVIDER PROGRESS NOTE ---
Assessment/Plan - Problem List (1) CAP (community acquired pneumonia) Qualifiers: Laterality: right Lung location: lower lobe of lung Qualified Code(s): J18.1 - Lobar pneumonia, unspecified organism Assessment/Plan: Improved and tolerating po Augnmentin Pt is medically stable today and reaady for DCh and to complete a 2 week course of antibiotics (2) Volume overload Assessment/Plan: Resolved (3) Weakness generalized Assessment/Plan: Improving. Pt able to rise up alone, sit and feed himself alone. Further PT is needed. The Physical Therapist felt that he was unstable doing stairs and pointed out that he would be safer if DCh to SNF, but the said that there would be a neighbor available to help him get up the one step they have, to get into the house. Plan was for DCh to home. Later the stated that the Pt was unable to go up a step and that she would therefore not be taking him home today. (4) Vertigo Assessment/Plan: No further complaints of this. - Current Meds Current Meds: Current Medications Generic Name Dose Route Start Last Admin Trade Name Freq PRN Reason Stop Dose Admin Acetaminophen 650 mg 09/17/17 20:45 09/18/17 00:21 Tylenol PO 650 mg Q4HR PRN Administration Pain or Fever > 38C (100.4F) Albuterol/Ipratropium 3 ml 09/22/17 17:19 09/24/17 11:15 Duoneb INH 3 ml RTQID PRN Administration Shortness of Air/Wheezing Amoxicillin/Clavulanate Potassium 1 tab 09/26/17 21:00 09/27/17 21:58 Augmentin 875/125 PO 1 tab BID BR[facility] Administration Famotidine 20 mg 09/18/17 09:00 09/27/17 08:02 Pepcid PO 20 mg DAILY [facility] Administration Finasteride 5 mg 09/18/17 21:00 09/27/17 21:58 Proscar PO 5 mg QPM BR[facility] Administration Guaifenesin 600 mg 09/17/17 23:00 09/27/17 21:58 Mucinex PO 600 mg BID BR[facility]ORD Administration Multivitamins 1 tab 09/21/17 08:00 09/27/17 08:02 Theragran PO 1 tab DAILYWM BRAD[facility] Administration Polyethylene Glycol 17 gm 09/18/17 09:00 09/27/17 07:57 Miralax PO Not Given DAILY BRADF[facility] Sodium Chloride 10 ml 09/17/17 20:45 09/23/17 05:47 Normal Saline Flush 0.9% IVP 10 ml PRN PRN Administration NEEDED PER PROVIDER ORDERS Sodium Chloride 10 ml 09/18/17 01:00 09/28/17 03:44 Normal Saline Flush 0.9% IVP Not Given 0100,0900,1700 BR[facility] Tamsulosin HCl 0.4 mg 09/17/17 21:00 09/27/17 21:58 Flomax PO 0.4 mg QPM BR[facility] Administration Warfarin Sodium 2.5 mg 09/26/17 18:00 09/27/17 10:09 Coumadin PO 2.5 mg QDWARFARIN BRADFORD Administration - Lab Result Fish Bone Diagrams: 09/27/17 05:35 09/27/17 05:35 - Additional Planning My Orders: My Active Orders 09/27/17 17:04 Discharge [RC] .ONCE Initiate Discharge Checklist [RC] .ONCE Subjective - Subjective Patient Reports: Feeling Better, Resting Comfortably Nursing Reports: No Complaints, Other (Able to go to the toilet by himself.) Objective Vital Signs: Vital Signs - 24 hr 09/27/17 09/27/17 09/27/17 07:59 08:00 08:09 Temperature 36.6 C Heart Rate Heart Rate [ 63 62 Brachial] Heart Rate [ 60 Radial] Heart Rate [ 62 Standing (After 1 Minute)] Heart Rate [ 60 Supine] Respiratory 16 Rate Blood Pressure 116/63 120/69 [Left Brachial artery] Blood Pressure 133/62 H [Right Brachial artery] Blood Pressure 120/69 [Standing ( After 1 Minute) ] Blood Pressure 133/62 H [Supine] O2 Saturation 95 09/27/17 09/27/17 09/27/17 13:39 15:21 20:00 Temperature 36.7 C 36.9 C Heart Rate 64 Heart Rate [ 62 60 Brachial] Heart Rate [ Radial] Heart Rate [ Standing (After 1 Minute)] Heart Rate [ Supine] Respiratory 19 18 18 Rate Blood Pressure [Left Brachial artery] Blood Pressure 109/63 109/64 [Right Brachial artery] Blood Pressure [Standing ( After 1 Minute) ] Blood Pressure [Supine] O2 Saturation 97 96 09/27/17 22:00 Temperature 36.7 C Heart Rate Heart Rate [ 67 Brachial] Heart Rate [ Radial] Heart Rate [ Standing (After 1 Minute)] Heart Rate [ Supine] Respiratory 20 Rate Blood Pressure [Left Brachial artery] Blood Pressure 127/73 [Right Brachial artery] Blood Pressure [Standing ( After 1 Minute) ] Blood Pressure [Supine] O2 Saturation 96 Oxygen O2 Source [With Activity] Room air O2 Source Room air I&O (Last 24 Hrs): Intake and Output Totals x24h 09/26/17 09/27/17 09/28/17 23:59 23:59 23:59 Intake Total 2302.0 1347.5 50 Output Total 4035 2925 1250 Balance -1733.0 -1577.5 -1200 General: Alert, Oriented x3 HEENT: Mucous membr. moist/pink Neck: Supple, No JVD Neuro: Non Focal Cardiovascular: Regular rate, No murmurs Respiratory: No respiratory distress, Breath sounds nml Abdomen: Soft Extremities: No edema - Results Results: Laboratory Results WBC 8.5 x10^3/uL (4.8-10.8) 09/27/17 05:35 RBC 3.51 10^6/uL (4.70-6.10) L 09/27/17 05:35 Hgb 12.0 g/dL (14.0-18.0) L 09/27/17 05:35 Hct 35.8 % (42.0-52.0) L 09/27/17 05:35 MCV 102.2 fL (80.0-94.0) H 09/27/17 05:35 MCH 34.4 pg (27.0-31.0) H 09/27/17 05:35 MCHC 33.6 g/dL (32.0-36.0) 09/27/17 05:35 RDW 14.3 % (12.0-15.0) 09/27/17 05:35 Plt Count 432 10^3/uL (130-450) 09/27/17 05:35 MPV 6.8 fL (7.4-11.4) L 09/27/17 05:35 Neut # 5.1 10^3/uL (1.5-6.6) 09/27/17 05:35 Lymph # 2.4 10^3/uL (1.5-3.5) 09/27/17 05:35 [place] # 0.8 10^3/uL (0.0-1.0) 09/27/17 05:35 Eos # 0.1 10^3/uL (0.0-0.7) 09/27/17 05:35 Baso # 0.1 10^3/uL (0.0-0.1) 09/27/17 05:35 Absolute Nucleated RBC 0.00 x10^3/uL 09/27/17 05:35 Nucleated RBC % 0.1 /100WBC 09/27/17 05:35 Manual Slide Review Indicated 09/18/17 06:07 Platelet Estimate NORMAL (130-450,000) (NORMAL) 09/18/17 06:07 Platelet Morphology 1+ LARGE PLATELETS (NORMAL) 09/18/17 06:07 RBC Morph Micro Appear NORMAL APPEARANCE (NORMAL) 09/18/17 06:07 PT 18.4 secs (9.9-12.6) H 09/27/17 05:35 INR 1.7 (0.8-1.2) H 09/27/17 05:35 Sodium 134 mmol/L (135-145) L 09/27/17 05:35 Potassium 4.2 mmol/L (3.5-5.0) 09/27/17 05:35 Chloride 101 mmol/L (101-111) 09/27/17 05:35 Carbon Dioxide 29 mmol/L (21-32) 09/27/17 05:35 Anion Gap 4.0 (6-13) L 09/27/17 05:35 BUN 23 mg/dL (6-20) H 09/27/17 05:35 Creatinine 0.8 mg/dL (0.6-1.2) 09/27/17 05:35 Estimated GFR (MDRD) 92 (>89) 09/27/17 05:35 Glucose 94 mg/dL (70-100) 09/27/17 05:35 Lactic Acid 1.3 mmol/L (0.5-2.2) 09/17/17 19:05 Calcium 8.1 mg/dL (8.5-10.3) L 09/27/17 05:35 Magnesium 2.2 mg/dL (1.7-2.8) 09/25/17 05:32 Total Bilirubin 0.7 mg/dL (0.2-1.0) 09/27/17 05:35 AST 26 IU/L (10-42) 09/27/17 05:35 ALT 28 IU/L (10-60) 09/27/17 05:35 Alkaline Phosphatase 69 IU/L (42-121) 09/27/17 05:35 Troponin I < 0.04 ng/mL (<0.49) 09/18/17 05:22 B-Natriuretic Peptide 523 pg/mL (5-100) H 09/21/17 05:45 Total Protein 5.6 g/dL (6.7-8.2) L 09/27/17 05:35 Albumin 2.5 g/dL (3.2-5.5) L 09/27/17 05:35 Globulin 3.1 g/dL (2.1-4.2) 09/27/17 05:35 Albumin/Globulin Ratio 0.8 (1.0-2.2) L 09/27/17 05:35 Lipase 22 U/L (22-51) 09/17/17 19:05 Vitamin B12 1075 pg/mL (180-914) H 09/18/17 06:07 Folate 21.20 ng/mL (5.90 - >24.8) 09/18/17 06:07 Urine Color YELLOW 09/19/17 04:55 Urine Clarity SL. CLOUDY (CLEAR) 09/19/17 04:55 Urine pH 5.5 PH (5.0-7.5) 09/19/17 04:55 Ur Specific [place] 1.025 (1.002-1.030) 09/19/17 04:55 Urine Protein 30 mg/dL (NEGATIVE) H 09/19/17 04:55 Urine Glucose (UA) NEGATIVE mg/dL (NEGATIVE) 09/19/17 04:55 Urine Ketones NEGATIVE mg/dL (NEGATIVE) 09/19/17 04:55 Urine Occult Blood LARGE (NEGATIVE) H 09/19/17 04:55 Urine Nitrite NEGATIVE (NEGATIVE) 09/19/17 04:55 Urine Bilirubin NEGATIVE (NEGATIVE) 09/19/17 04:55 Urine Urobilinogen 0.2 (NORMAL) E.U./dL (NORMAL) 09/19/17 04:55 Ur Leukocyte Esterase NEGATIVE (NEGATIVE) 09/19/17 04:55 Urine RBC 11-25 /HPF (0-5) H 09/19/17 04:55 Urine WBC 0-3 /HPF (0-3) 09/19/17 04:55 Ur Squamous Epith Cells RARE Squamous (<= Few) 09/19/17 04:55 Urine Crystals /LPF 09/19/17 04:55 Urine Bacteria None Seen /HPF (None Seen) 09/19/17 04:55 Urine Culture Comments NOT INDICATED 09/19/17 04:55 Influenza A (Rapid) Negative (Negative) 09/17/17 19:30 Influenza B (Rapid) Negative (Negative) 09/17/17 19:30 Influenza Types A,B Ag - 09/17/17 19:30
[2017-09-28 09:06] LABS: INR 1.6 (0.8-1.2); PT - PROTHROMBIN TIME 17.7 secs (9.9-12.6)
[2017-09-28] MEDS: guaiFENesin 600 MG TABLET PO SCH ×2 (10:20→20:15)
[2017-09-28] MEDS: POLYETHYLENE GLYCOL 3350 17 GM PACKET PO SCH (10:20)
[2017-09-28] MEDS: FAMOTIDINE 20 MG TABLET PO SCH (10:20)
[2017-09-28] MEDS: MULTIVITAMIN TABLET PO SCH (10:20)
[2017-09-28] MEDS: AMOX/CLAV 875 MG/125 MG TABLET PO SCH ×2 (10:20→20:15)
[2017-09-28] MEDS ORDERED: WARFARIN 1 MG TABLET PO ONE (10:58)
[2017-09-28] MEDS: WARFARIN 2.5 MG TABLET PO SCH (14:32)
--- NOTE | 2017-09-28 17:04 | PROVIDER PROGRESS NOTE ---
Assessment/Plan - Problem List (1) CAP (community acquired pneumonia) Qualifiers: Laterality: right Lung location: lower lobe of lung Qualified Code(s): J18.1 - Lobar pneumonia, unspecified organism Assessment/Plan: Tolerating po antibiotic and will be DCh on this to finish a 14 day course of treatment. No nebs or cough suppressants reqested any longer. (2) Weakness generalized Assessment/Plan: Improving with PT and front-wheel walker, but he only does walking once a day and needs more PT. His house has 1 step and a step-over, to get in the house. He will not be able to limb up 5-6 stairs to get on the [place] [employer], thereore he will be home bound for a while. I discussed having Home PT, Home RN to draw INRs and a Home bath Aide with and Pt listened, and she agreed to have this in the house. Will arrange for this starting SOLOMON, since he can be DCh once the INR is therapeutic or nearly therapeutic. (3) Subtherapeutic international normalized ratio (INR) Assessment/Plan: Will give 4 mg additional Coumadin, on top of usual 2.5 mg, today. Still following daily INR while here. Pt will need outpt INRs drawn and followed by his Shop Worker in [place] (as previosuly done), after DCh. Depending on tomorrow's INR, home blood draw for INR will probably be QOD for a while. Discussed with . (4) Vertigo Assessment/Plan: No further complaints, has prn Meclizine new med order. (5) Volume overload Assessment/Plan: Resolved - Current Meds Current Meds: Current Medications Generic Name Dose Route Start Last Admin Trade Name Freq PRN Reason Stop Dose Admin Acetaminophen 650 mg 09/17/17 20:45 09/18/17 00:21 Tylenol PO 650 mg Q4HR PRN Administration Pain or Fever > 38C (100.4F) Amoxicillin/Clavulanate Potassium 1 tab 09/26/17 21:00 09/28/17 10:20 Augmentin 875/125 PO 1 tab BID BRADFORD Administration Famotidine 20 mg 09/18/17 09:00 09/28/17 10:20 Pepcid PO 20 mg DAILY BRADFORD Administration Finasteride 5 mg 09/18/17 21:00 09/27/17 21:58 Proscar PO 5 mg QPM BRADFORD Administration Guaifenesin 600 mg 09/17/17 23:00 09/28/17 10:20 Mucinex PO 600 mg BID BRADFORD Administration Multivitamins 1 tab 09/21/17 08:00 09/28/17 10:20 Theragran PO 1 tab DAILYWM BRADFORD Administration Polyethylene Glycol 17 gm 09/18/17 09:00 09/28/17 10:20 Miralax PO 17 gm DAILY BRADFORD Administration Sodium Chloride 10 ml 09/17/17 20:45 09/23/17 05:47 Normal Saline Flush 0.9% IVP 10 ml PRN PRN Administration NEEDED PER PROVIDER ORDERS Sodium Chloride 10 ml 09/18/17 01:00 09/28/17 10:20 Normal Saline Flush 0.9% IVP 10 ml 0100,0900,1700 BRADFORD Administration Tamsulosin HCl 0.4 mg 09/17/17 21:00 09/27/17 21:58 Flomax PO 0.4 mg QPM BRADFORD Administration Warfarin Sodium 2.5 mg 09/26/17 18:00 09/28/17 14:32 Coumadin PO 2.5 mg QDWARFARIN BRADFORD Administration - Lab Result Fish Bone Diagrams: 09/27/17 05:35 09/27/17 05:35 - Additional Planning My Orders: My Active Orders 09/27/17 17:04 Discharge [RC] .ONCE Initiate Discharge Checklist [RC] .ONCE 09/29/17 05:00 PT WITH INR [COAG] DAILYLAB Subjective - Subjective Patient Reports: Feeling Better, Resting Comfortably Nursing Reports: No Complaints, Other (Pt walked with PT and tried stairs, is wobbly) Objective Vital Signs: Vital Signs - 24 hr 09/27/17 09/27/17 09/28/17 20:00 22:00 08:18 Temperature 36.7 C 36.5 C Heart Rate 64 Heart Rate [ 67 62 Brachial] Heart Rate [ Standing (After 1 Minute)] Heart Rate [ Supine] Respiratory 18 20 16 Rate Blood Pressure 127/73 137/70 H [Right Brachial artery] Blood Pressure [Standing ( After 1 Minute) ] Blood Pressure [Supine] O2 Saturation 96 96 09/28/17 09/28/17 09/28/17 08:19 11:00 15:35 Temperature 36.8 C Heart Rate 68 Heart Rate [ 63 Brachial] Heart Rate [ 63 Standing (After 1 Minute)] Heart Rate [ 62 Supine] Respiratory 16 20 Rate Blood Pressure 112/57 L [Right Brachial artery] Blood Pressure 131/76 H [Standing ( After 1 Minute) ] Blood Pressure 137/70 H [Supine] O2 Saturation 97 Oxygen O2 Source [With Activity] Room air O2 Source Room air I&O (Last 24 Hrs): Intake and Output Totals x24h 09/26/17 09/27/17 09/28/17 23:59 23:59 23:59 Intake Total 2302.0 1347.5 410 Output Total 4035 2925 1650 Balance -1733.0 -1577.5 -1240 General: Alert, Oriented x3 HEENT: Mucous membr. moist/pink Neck: Supple, No JVD Neuro: Non Focal Cardiovascular: Regular rate, No murmurs Respiratory: No respiratory distress Abdomen: Soft Extremities: No edema - Results Results: Laboratory Results WBC 8.5 x10^3/uL (4.8-10.8) 09/27/17 05:35 RBC 3.51 10^6/uL (4.70-6.10) L 09/27/17 05:35 Hgb 12.0 g/dL (14.0-18.0) L 09/27/17 05:35 Hct 35.8 % (42.0-52.0) L 09/27/17 05:35 MCV 102.2 fL (80.0-94.0) H 09/27/17 05:35 MCH 34.4 pg (27.0-31.0) H 09/27/17 05:35 MCHC 33.6 g/dL (32.0-36.0) 09/27/17 05:35 RDW 14.3 % (12.0-15.0) 09/27/17 05:35 Plt Count 432 10^3/uL (130-450) 09/27/17 05:35 MPV 6.8 fL (7.4-11.4) L 09/27/17 05:35 Neut # 5.1 10^3/uL (1.5-6.6) 09/27/17 05:35 Lymph # 2.4 10^3/uL (1.5-3.5) 09/27/17 05:35 Snyder # 0.8 10^3/uL (0.0-1.0) 09/27/17 05:35 Eos # 0.1 10^3/uL (0.0-0.7) 09/27/17 05:35 Baso # 0.1 10^3/uL (0.0-0.1) 09/27/17 05:35 Absolute Nucleated RBC 0.00 x10^3/uL 09/27/17 05:35 Nucleated RBC % 0.1 /100WBC 09/27/17 05:35 Manual Slide Review Indicated 09/18/17 06:07 Platelet Estimate NORMAL (130-450,000) (NORMAL) 09/18/17 06:07 Platelet Morphology 1+ LARGE PLATELETS (NORMAL) 09/18/17 06:07 RBC Morph Micro Appear NORMAL APPEARANCE (NORMAL) 09/18/17 06:07 PT 17.7 secs (9.9-12.6) H 09/28/17 08:39 INR 1.6 (0.8-1.2) H 09/28/17 08:39 Sodium 134 mmol/L (135-145) L 09/27/17 05:35 Potassium 4.2 mmol/L (3.5-5.0) 09/27/17 05:35 Chloride 101 mmol/L (101-111) 09/27/17 05:35 Carbon Dioxide 29 mmol/L (21-32) 09/27/17 05:35 Anion Gap 4.0 (6-13) L 09/27/17 05:35 BUN 23 mg/dL (6-20) H 09/27/17 05:35 Creatinine 0.8 mg/dL (0.6-1.2) 09/27/17 05:35 Estimated GFR (MDRD) 92 (>89) 09/27/17 05:35 Glucose 94 mg/dL (70-100) 09/27/17 05:35 Lactic Acid 1.3 mmol/L (0.5-2.2) 09/17/17 19:05 Calcium 8.1 mg/dL (8.5-10.3) L 09/27/17 05:35 Magnesium 2.2 mg/dL (1.7-2.8) 09/25/17 05:32 Total Bilirubin 0.7 mg/dL (0.2-1.0) 09/27/17 05:35 AST 26 IU/L (10-42) 09/27/17 05:35 ALT 28 IU/L (10-60) 09/27/17 05:35 Alkaline Phosphatase 69 IU/L (42-121) 09/27/17 05:35 Troponin I < 0.04 ng/mL (<0.49) 09/18/17 05:22 B-Natriuretic Peptide 523 pg/mL (5-100) H 09/21/17 05:45 Total Protein 5.6 g/dL (6.7-8.2) L 09/27/17 05:35 Albumin 2.5 g/dL (3.2-5.5) L 09/27/17 05:35 Globulin 3.1 g/dL (2.1-4.2) 09/27/17 05:35 Albumin/Globulin Ratio 0.8 (1.0-2.2) L 09/27/17 05:35 Lipase 22 U/L (22-51) 09/17/17 19:05 Vitamin B12 1075 pg/mL (180-914) H 09/18/17 06:07 Folate 21.20 ng/mL (5.90 - >24.8) 09/18/17 06:07 Urine Color YELLOW 09/19/17 04:55 Urine Clarity SL. CLOUDY (CLEAR) 09/19/17 04:55 Urine pH 5.5 PH (5.0-7.5) 09/19/17 04:55 Ur Specific Vincent 1.025 (1.002-1.030) 09/19/17 04:55 Urine Protein 30 mg/dL (NEGATIVE) H 09/19/17 04:55 Urine Glucose (UA) NEGATIVE mg/dL (NEGATIVE) 09/19/17 04:55 Urine Ketones NEGATIVE mg/dL (NEGATIVE) 09/19/17 04:55 Urine Occult Blood LARGE (NEGATIVE) H 09/19/17 04:55 Urine Nitrite NEGATIVE (NEGATIVE) 09/19/17 04:55 Urine Bilirubin NEGATIVE (NEGATIVE) 09/19/17 04:55 Urine Urobilinogen 0.2 (NORMAL) E.U./dL (NORMAL) 09/19/17 04:55 Ur Leukocyte Esterase NEGATIVE (NEGATIVE) 09/19/17 04:55 Urine RBC 11-25 /HPF (0-5) H 09/19/17 04:55 Urine WBC 0-3 /HPF (0-3) 09/19/17 04:55 Ur Squamous Epith Cells RARE Squamous (<= Few) 09/19/17 04:55 Urine Crystals /LPF 09/19/17 04:55 Urine Bacteria None Seen /HPF (None Seen) 09/19/17 04:55 Urine Culture Comments NOT INDICATED 09/19/17 04:55 Influenza A (Rapid) Negative (Negative) 09/17/17 19:30 Influenza B (Rapid) Negative (Negative) 09/17/17 19:30 Influenza Types A,B Ag - 09/17/17 19:30
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
[2017-09-28] MEDS: TAMSULOSIN 0.4 MG CAPSULE PO SCH (20:15)
[2017-09-28] MEDS: FINASTERIDE 5 MG TABLET PO SCH (20:15)
[2017-09-29] MEDS: SODIUM CHLORIDE FLUSH 0.9% 10 ML SYRINGE IVP SCH ×2 (00:16→10:20)
[2017-09-29 05:59] LABS: INR 2.3 (0.8-1.2); PT - PROTHROMBIN TIME 25.2 secs (9.9-12.6)
--- NOTE | 2017-09-29 07:40 | Discharge Plan ---
Discharge Plan Disposition: Home, Self Care Condition: Stable Prescriptions: Amox/Clav 875/125 [Augmentin] 1 each PO Q12H #8 tablet Meclizine [Antivert] 12.5 mg PO Q6H PRN #40 tablet PRN Reason: Dizziness Warfarin [Coumadin] 2.5 mg PO 1400 #30 tablet Diet: Regular Activity Restrictions: Activity as Tolerated Shower Restrictions: No Driving Restrictions: Yes (No driving til claered by Primary Care Provider.) Weight Bearing: Full Weight Instruction Topics: Pneumonia, Dehydration Rehydration Ch Additional Instructions or Follow Up instructions: See a Primary Care Provider within 7-10 days for follow-up of the pneumonia. A list of doctor's who are accepting new patients has been given to you. Continue to have the INR blood test done, and sent to your Home Theater Installer for management. Take the antibiotic Augmentin til the pills are finished. You now have a new prescription for Meclizine, to use as needed for vertigo. Take the Finasteride and Tamsolusin doses as well as the Coumadin doses, as you did pre-hospitalization. Follow the list of current advised medications, those are what you should take. A Home Health RN has been ordered, she should draw blood for the blood tests for INR on and Sat of this upcoming week. Home Health Physical Therapy and a Home Health Bath Aide have also been ordered for you. Follow-Up Care: Home Health - RN, Home Health - PT No Smoking: If you smoke, Please STOP! Call for help.
[2017-09-29] MEDS: POLYETHYLENE GLYCOL 3350 17 GM PACKET PO SCH (10:19)
[2017-09-29] MEDS: FAMOTIDINE 20 MG TABLET PO SCH (10:20)
[2017-09-29] MEDS: guaiFENesin 600 MG TABLET PO SCH (10:20)
[2017-09-29] MEDS: AMOX/CLAV 875 MG/125 MG TABLET PO SCH (10:20)
[2017-09-29] MEDS: MULTIVITAMIN TABLET PO SCH (10:20)
[2017-09-29] MEDS: WARFARIN 2.5 MG TABLET PO SCH (12:22)
[2017-09-29 12:45] VITALS: BP 144/58
--- NOTE | 2017-10-31 23:20 | DISCHARGE SUMMARY ---
Physician: Edna Jeffers MD DATE OF ADMISSION: 09/17/2017 DATE OF DISCHARGE: 09/29/2017 HISTORY OF PRESENT ILLNESS: This is an 86-year-old white male who presented with marked weakness, altered mental status, shortness of breath and was found to have community-acquired pneumonia, bilateral and admitted for management. HOSPITAL COURSE AND DISCHARGE DIAGNOSES 1. Community-acquired right upper lobe and left lower lobe pneumonia with bilateral pleural effusions. Patient required nebulizers, IV antibiotics using Zithromax, Unasyn IV and cefepime. Patient had poor pulmonary toilet requiring chest physical therapy and had a prolonged hospital course because of this. He was discharged on Augmentin to complete treatment. 2. Volume overload, improved. Patient was initially borderline hypotensive and felt to be dehydrated, had rapid volume replacement which led to volume overload. Following this, he required adjustment of fluid intake and diuretics. 3. Weakness, generalized. Patient had very slow recovery of function, was too weak to feed himself for the first several days, eventually he did transition to sitting up in a chair and feeding himself, but required assistance with walking to the bathroom, toileting. He was advised to have further Home physical therapy and use his walker. 4. Vertigo. Patient was started on meclizine, which improved his symptoms after being evaluated for orthostasis, which was negative and for a CVA with a head CT. This showed generalized age related cortical atrophy without evidence of acute intracranial abnormality. 5. Frequent falls recently. The reported this problem. She thought it was from his recent vertigo. He felt that it was from his overall weakness. Patient had x- rays of his hips, pelvis, knee, which showed no areas of fracture. 6. Atrial fibrillation, on Coumadin with a backup pacemaker. Patient's heart rate was controlled throughout this stay on his medications and the pacemaker function appeared normal. 7. Benign prostatic hypertrophy. Patient did require a catheter for management of I's and O's when he was too obtunded to use a bedpan. Eventually, he was able to urinate freely. LABS AND IMAGING: reviewed and summarized above. ALLERGIES: NONE. MEDICATIONS AT DISCHARGE 1. Warfarin 2.5 mg daily. 2. Augmentin 875/125 mg b.i.d. for an additional 4 days. 3. Flomax 0.4 mg every evening. 4. Finasteride 5 mg every evening. 5. Meclizine 12.5 mg q. 6 hours p.r.n. vertigo. PHYSICAL EXAMINATION AT DISCHARGE VITAL SIGNS: Blood pressure 144/58, pulse of 60, mostly with ventricular pacing , afebrile, room air saturation 98%. HEENT: Unremarkable except for disheveled appearance, Oral mucosa moist, his voice is soft spoken and somewhat hoarse. NECK: Without JVD or carotid bruits. CHEST: Clear. HEART: Sounds normal. ABDOMEN: Soft and benign. EXTREMITIES: Without edema. NEUROLOGIC: Intact. CODE STATUS: FULL CODE. FOLLOWUP: Patient was advised to see his primary care physician in 7-10 days for followup and he required a new doctor; a list of doctors was provided to the patient and his . 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 He was ordered to have a home health RN for a blood draw of the INR twice in the upcoming week and also ordered to have home health physical therapy, home health bath aide, and home health staff nurse. Time required to complete this entire discharge including dictation, coordination of care, review of labs and test results, researching of medications and paperwork: 60 minutes. TD: 10/31/2017 23:19 MANDY
== END 2017-09-29 13:00 | disposition home or self-care (01) | DRG 194 ==
LOC: EDUNIT# → ED 17:31 → MS2 20:45
PROVIDERS: ADMIT Internal Medicine; ATTEND Internal Medicine
DX: J18.1 Lobar pneumonia, unspecified organism (principal); J90 Pleural effusion, not elsewhere classified; E87.1 Hypo-osmolality and hyponatremia; R40.2412 Glasgow coma scale score 13-15, at arrival to emergency department; S00.212A Abrasion of left eyelid and periocular area, initial encounter; R64 Cachexia; I48.91 Unspecified atrial fibrillation; Z68.1 Body mass index [BMI] 19.9 or less, adult; E86.0 Dehydration; E87.70 Fluid overload, unspecified; T50.3X5A Adverse effect of electrolytic, caloric and water-balance agents, initial encounter; Y92.239 Unspecified place in hospital as the place of occurrence of the external cause; I48.2 Chronic atrial fibrillation; Z79.01 Long term (current) use of anticoagulants; R42 Dizziness and giddiness; D52.0 Dietary folate deficiency anemia; R53.1 Weakness; N40.1 Benign prostatic hyperplasia with lower urinary tract symptoms; R35.1 Nocturia; M25.562 Pain in left knee; M25.552 Pain in left hip; W19.XXXA Unspecified fall, initial encounter; T14.8XXA Other injury of unspecified body region, initial encounter; Z91.81 History of falling; Z79.899 Other long term (current) drug therapy; Z95.0 Presence of cardiac pacemaker
CPT/HCPCS: 36415; 70450; 71046; 71250; 80048; 80053; 81001; 82270; 82607; 82746; 82747; 83605; 83690; 83735; 83880; 84484; 85025; 85610; 87040; 87070; 87086; 87205; 87275; 87276; 93005; 93306; 94640; 96360; 96361; 99284

== ENCOUNTER 2018-01-14 12:09 | Outpatient (CLI) | payer MEDICARE, BC | END 2018-01-14 12:10 | disposition home or self-care (01) | LOC: LAB 12:09 | PROVIDERS: ATTEND Pharmacist | DX: I48.91 Unspecified atrial fibrillation (principal) | CPT/HCPCS: 85610 ==

== ENCOUNTER 2018-02-03 15:04 | Outpatient (CLI) | payer MEDICARE, BC | END 2018-02-03 15:05 | disposition home or self-care (01) | LOC: LAB 15:04 | PROVIDERS: ATTEND Pharmacist | DX: I48.91 Unspecified atrial fibrillation (principal) | CPT/HCPCS: 85610 ==

== ENCOUNTER 2018-02-12 10:33 | Outpatient (CLI) | payer MEDICARE, BC ==
--- NOTE | 2018-02-12 11:33 | XRAY Report ---
Procedure Date: 02/12/2018 Accession Number: [id number] / [id number] Procedure: XR - Ribs w/PA Chest LT CPT Code: FULL RESULT: EXAM: LEFT RIB RADIOGRAPHY EXAM DATE: 02/12/2018 11:10 AM. CLINICAL HISTORY: Pneumonia, left rib fracture. COMPARISON: CHEST 2 VIEW 09/26/2017. TECHNIQUE: 1 view of the chest and 2 views of the ribs. An external marker is placed on the region of the patient's rib pain. FINDINGS: Bones: Old healed rib fractures of the right sixth and seventh ribs are seen. No osseous abnormality is seen in the region of the marker. No new displaced fractures identified. Lungs: Increased lung volumes with relatively flattened diaphragms are again seen, typically obstructive lung disease. Mediastinum: Stable cardiomediastinal silhouette, upper limits of normal for size. Other: Pacemaker, stable configuration. IMPRESSION: No acute cardiopulmonary abnormality. No acute fracture is identified. RADIA
== END 2018-02-12 10:34 | disposition home or self-care (01) ==
LOC: DI 10:33
PROVIDERS: ATTEND Specialist
DX: J18.9 Pneumonia, unspecified organism (principal); I48.91 Unspecified atrial fibrillation
CPT/HCPCS: 85610

== ENCOUNTER 2018-03-10 13:23 | Outpatient (CLI) | payer MEDICARE, BC | END 2018-03-10 13:24 | disposition home or self-care (01) | LOC: LAB 13:23 | PROVIDERS: ATTEND Pharmacist | DX: I48.91 Unspecified atrial fibrillation (principal) | CPT/HCPCS: 85610 ==

== ENCOUNTER 2018-09-26 13:46 | Outpatient (CLI) | payer MEDICARE, BC | END 2018-09-26 13:47 | disposition home or self-care (01) | LOC: LAB 13:46 | PROVIDERS: ATTEND Pharmacist | DX: I48.91 Unspecified atrial fibrillation (principal) | CPT/HCPCS: 85610 ==

== ENCOUNTER 2018-10-10 14:57 | Outpatient (CLI) | payer MEDICARE, BC | END 2018-10-10 14:58 | disposition home or self-care (01) | LOC: LAB 14:57 | PROVIDERS: ATTEND Pharmacist | DX: I48.91 Unspecified atrial fibrillation (principal) | CPT/HCPCS: 85610 ==

== ENCOUNTER 2018-10-17 08:00 | Outpatient (CLI) | payer MEDICARE, BC | END 2018-10-17 23:59 | disposition home or self-care (01) | LOC: LAB.N 08:00 | PROVIDERS: ATTEND Pharmacist | DX: I48.91 Unspecified atrial fibrillation (principal) | CPT/HCPCS: 85610 ==

== ENCOUNTER 2018-10-27 13:10 | Outpatient (CLI) | payer MEDICARE, BC | END 2018-10-27 13:11 | disposition home or self-care (01) | LOC: LAB 13:10 | PROVIDERS: ATTEND Pharmacist | DX: I48.91 Unspecified atrial fibrillation (principal) | CPT/HCPCS: 85610 ==

== ENCOUNTER 2018-11-21 16:12 | Outpatient (CLI) | payer MEDICARE, BC | END 2018-11-21 16:13 | disposition home or self-care (01) | LOC: LAB 16:12 | PROVIDERS: ATTEND Pharmacist | DX: I48.91 Unspecified atrial fibrillation (principal) | CPT/HCPCS: 85610 ==

== ENCOUNTER 2018-12-12 08:00 | Outpatient (CLI) | payer MEDICARE, BC | END 2018-12-12 23:59 | disposition home or self-care (01) | LOC: LAB 08:00 | PROVIDERS: ATTEND Pharmacist | DX: I48.91 Unspecified atrial fibrillation (principal) | CPT/HCPCS: 85610 ==

== ENCOUNTER 2018-12-23 12:42 | Outpatient (CLI) | payer MEDICARE, BC ==
[2018-12-23 13:27] LABS: BASOPHILS % (AUTO) 0.4 %; EOSINOPHILS % (AUTO) 0.9 %; HGB - HEMOGLOBIN 13.8 g/dL (14.0-18.0); LYMPHOCYTES % (AUTO) 30.8 %; MEAN CORPUSCULAR HEMOGLOBIN 33.4 pg (27.0-31.0); MEAN CORPUSCULAR HGB CONC 32.2 g/dL (32.0-36.0); MEAN CORPUSCULAR VOLUME 103.6 fL (80.0-94.0); MEAN PLATELET VOLUME 10.5 fL (7.4-11.4); MONOCYTES % (AUTO) 14.1 %; NEUTROPHILS % (AUTO) 53.4 %; PLT - PLATELET COUNT 180 10^3/uL (130-450); RED BLOOD COUNT 4.13 10^6/uL (4.70-6.10); RED CELL DISTRIBUTION WIDTH 13.8 % (12.0-15.0)
[2018-12-23 13:43] LABS: ABNORMAL LYMPHS % (MANUAL) 0 %; INR 2.8 (0.8-1.2); PT - PROTHROMBIN TIME 31.1 secs (9.9-12.6)
[2018-12-23 13:45] LABS: ALBUMIN 3.8 g/dL (3.2-5.5); ALBUMIN/GLOBULIN RATIO 1.4 (1.0-2.2); ALKALINE PHOSPHATASE 59 IU/L (42-121); ALT ALANINE AMINOTRANSFERASE 18 IU/L (10-60); AST ASPARTATE AMINOTRANSFERASE 26 IU/L (10-42); BILIRUBIN,TOTAL 0.6 mg/dL (0.2-1.0); BUN - BLOOD UREA NITROGEN 36 mg/dL (6-20); CALCIUM 9.2 mg/dL (8.5-10.3); CARBON DIOXIDE - CO2 26 mmol/L (21-32); CHLORIDE 105 mmol/L (101-111); CHOL/HDL RATIO 3.1 (<5.0); CHOLESTEROL 163 mg/dL; GFR - MDRD 71 (>89); GLUCOSE 104 mg/dL (70-100); HDL CHOLESTEROL 53 mg/dL; LDL CHOLESTEROL,CALCULATED 95 mg/dL; LDL/HDL RATIO 1.8 (<3.6); SODIUM 140 mmol/L (135-145); TOTAL PROTEIN 6.6 g/dL (6.7-8.2); VLDL CHOLESTEROL 15 mg/dL
[2018-12-23 13:52] LABS: BAND NEUTROPHILS % (MANUAL) 1 %; LYMPHOCYTES # (MANUAL) 2.8 10^3/uL (1.5-3.5); LYMPHOCYTES % (MANUAL) 35 %; MONOCYTES # (MANUAL) 0.7 10^3/uL (0.0-1.0); NEUTROPHILS # (MANUAL) 4.5 10^3/uL (1.5-6.6); NEUTROPHILS % (MANUAL) 55 %
[2018-12-23 13:53] LABS: RBC MORPHOLOGY (MULTIPLE) NORMAL APPEARANCE (NORMAL)
[2018-12-23 13:54] LABS: DIFFERENTIAL COMMENT MANUAL DIFFERENTIAL; PLATELET ESTIMATE, MANUAL NORMAL (130-450,000) (NORMAL); PLATELET MORPHOLOGY 1+ LARGE PLATELETS (NORMAL)
[2018-12-23 14:33] LABS: CRP - C-REACTIVE PROTEIN < 1.0 mg/dL (0-1.0)
== END 2018-12-23 12:43 | disposition home or self-care (01) ==
LOC: LAB 12:42
PROVIDERS: ATTEND Specialist
DX: I48.91 Unspecified atrial fibrillation (principal); S72.001A Fracture of unspecified part of neck of right femur, initial encounter for closed fracture; I10 Essential (primary) hypertension; J18.9 Pneumonia, unspecified organism; Z95.0 Presence of cardiac pacemaker
CPT/HCPCS: 36415; 80053; 80061; 83721; 85025; 85610; 85651; 86140

== ENCOUNTER 2019-01-19 13:41 | Outpatient (CLI) | payer MEDICARE, BC | END 2019-01-19 13:42 | disposition home or self-care (01) | LOC: LAB 13:41 | PROVIDERS: ATTEND Pharmacist | DX: I48.91 Unspecified atrial fibrillation (principal) | CPT/HCPCS: 85610 ==

== ENCOUNTER 2019-02-02 | Outpatient (CLI) | payer MEDICARE, BC | END 2019-02-02 13:23 | disposition home or self-care (01) | DX: I48.91 Unspecified atrial fibrillation (principal) ==

== ENCOUNTER 2019-02-23 13:24 | Outpatient (CLI) | payer MEDICARE, BC | END 2019-02-23 13:25 | disposition home or self-care (01) | LOC: LAB 13:24 | PROVIDERS: ATTEND Pharmacist | DX: I48.91 Unspecified atrial fibrillation (principal) | CPT/HCPCS: 85610 ==

== ENCOUNTER 2019-03-25 14:45 | Outpatient (CLI) | payer MEDICARE, BC | END 2019-03-25 14:46 | disposition home or self-care (01) | LOC: LAB 14:45 | PROVIDERS: ATTEND Pharmacist | DX: I48.91 Unspecified atrial fibrillation (principal) | CPT/HCPCS: 85610 ==

== ENCOUNTER 2019-05-01 12:33 | Outpatient (CLI) | payer MEDICARE, BC | END 2019-05-01 12:34 | disposition home or self-care (01) | LOC: LAB 12:33 | PROVIDERS: ATTEND Pharmacist | DX: I48.91 Unspecified atrial fibrillation (principal) | CPT/HCPCS: 85610 ==

== ENCOUNTER 2019-05-29 12:20 | Outpatient (CLI) | payer MEDICARE, BC | END 2019-05-29 12:21 | disposition home or self-care (01) | LOC: LAB 12:20 | PROVIDERS: ATTEND Pharmacist | DX: I48.91 Unspecified atrial fibrillation (principal) | CPT/HCPCS: 85610 ==

== ENCOUNTER 2019-06-03 15:22 | Outpatient (CLI) | payer MEDICARE, BC | END 2019-06-03 15:23 | disposition EMS.NT | LOC: EMS 15:22 | PROVIDERS: ATTEND Surgery | DX: Z03.89 Encounter for observation for other suspected diseases and conditions ruled out (principal) ==

== ENCOUNTER 2019-06-19 13:02 | Outpatient (CLI) | payer MEDICARE, BC | END 2019-06-19 13:03 | disposition home or self-care (01) | LOC: LAB 13:02 | PROVIDERS: ATTEND Pharmacist | DX: I48.91 Unspecified atrial fibrillation (principal) | CPT/HCPCS: 85610 ==

== ENCOUNTER 2019-06-19 14:34 | Outpatient (CLI) | payer MEDICARE, BC ==
--- NOTE | 2019-06-20 09:43 | XRAY Report ---
Reason: UNSTEADINESS ON FEET, Procedure Date: 06/19/2019 Accession Number: [id number] / [id number] Procedure: XR - Knee 3 View LT CPT Code: Final Report FULL RESULT: EXAM: LEFT KNEE RADIOGRAPHY EXAM DATE: 06/19/2019 03:11 PM HISTORY: UNSTEADINESS ON FEET, COMPARISON: KNEE 2 VIEW LT 09/17/2017 11:43 PM TECHNIQUE: AP, lateral and Merchant, 3 views including weightbearing FINDINGS: Small Barbara-Stieda lesion noted. Some vascular calcifications are seen. Soft tissues are otherwise unremarkable. Minimal osteophytic lipping at the medial aspect of the tibial plateau. Joint spaces are preserved. No joint effusion. IMPRESSION: Barbara-Stieda lesion. Minimal osteophyte formation. Otherwise unremarkable. RADIA
--- NOTE | 2019-06-20 09:47 | XRAY Report ---
Reason: UNSTEADINESS ON FEET,EFFUSION, UNSPECIFIED KNEE Procedure Date: 06/19/2019 Accession Number: [id number] / [id number] Procedure: XR - Hips 2V BILAT CPT Code: Final Report FULL RESULT: EXAM: PELVIS AND BILATERAL HIP RADIOGRAPHY EXAM DATE: 06/19/2019 03:11 PM HISTORY: UNSTEADINESS ON FEET,EFFUSION, UNSPECIFIED KNEE. COMPARISON: None HIP W/PELVIS 2-3V LT 09/17/2017 11:50 PM TECHNIQUE: Single frontal view of the pelvis and AP and frogleg lateral views of the BILATERAL hip(s), 3 views total FINDINGS: The pelvic ring is intact. Mild right SI joint degenerative arthritis noted. No significant focal lesion the pelvic bones. Right Hip: Intact and well aligned new total hip prosthesis. No evidence of loosening. No significant focal bone lesion. Left Hip: Mild joint space narrowing. Moderate osteophyte formation best seen laterally. Mild progression of degenerative disease since the previous exam. IMPRESSION: Mild bilateral SI joint degenerative arthritis. Joint degenerative arthritis on the right. Otherwise unremarkable pelvic ring. 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 Intact and well aligned new right hip prosthesis.
== END 2019-06-19 14:35 | disposition home or self-care (01) ==
LOC: DI 14:34
PROVIDERS: ATTEND Physician Assistant
DX: M76.42 Tibial collateral bursitis [Pellegrini-Stieda], left leg (principal); M16.12 Unilateral primary osteoarthritis, left hip; M47.818 Spondylosis without myelopathy or radiculopathy, sacral and sacrococcygeal region; Z96.641 Presence of right artificial hip joint; R26.81 Unsteadiness on feet; I48.91 Unspecified atrial fibrillation
CPT/HCPCS: 73521; 85610

== ENCOUNTER 2019-07-24 12:24 | Outpatient (CLI) | payer MEDICARE, BC ==
--- NOTE | 2019-07-24 23:23 | XRAY Report ---
Reason: COUGH,WHEEZE Procedure Date: 07/24/2019 Accession Number: [id number] / [id number] Procedure: XR - Chest 2 View X-Ray CPT Code: 59915 Final Report FULL RESULT: EXAM: CHEST RADIOGRAPHY EXAM DATE: 07/24/2019 12:39 PM. CLINICAL HISTORY: COUGH, WHEEZE. COMPARISON: RIBS 2 VIEW LT 02/12/2018 10:59 AM CHEST 2 VIEW 09/26/2017 8:43 AM. TECHNIQUE: 2 views. FINDINGS: Lungs/Pleura: No focal opacities evident. No pleural effusion. No pneumothorax. Normal volumes. Mediastinum: Heart and mediastinal contours are unremarkable. Other: Pacemaker again noted. Severe L1 compression fracture, age indeterminate. IMPRESSION: No acute cardiopulmonary disease seen. See above. RADIA
== END 2019-07-24 12:25 | disposition home or self-care (01) ==
LOC: DI 12:24
PROVIDERS: ATTEND Family Medicine
DX: R05 Cough (principal); R06.2 Wheezing; I10 Essential (primary) hypertension; R10.9 Unspecified abdominal pain; D64.9 Anemia, unspecified; I48.91 Unspecified atrial fibrillation
CPT/HCPCS: 36415; 71046; 80053; 83690; 84443; 85025; 85610

== ENCOUNTER 2019-07-24 12:25 | Outpatient (CLI) | payer MEDICARE, BC ==
[2019-07-24 13:15] LABS: BASOPHILS % (AUTO) 0.4 %; EOSINOPHILS # (AUTO) 0.1 10^3/uL (0.0-0.7); EOSINOPHILS % (AUTO) 0.5 %; HGB - HEMOGLOBIN 14.3 g/dL (14.0-18.0); LYMPHOCYTES # (AUTO) 2.3 10^3/uL (1.5-3.5); LYMPHOCYTES % (AUTO) 25.1 %; MEAN CORPUSCULAR HEMOGLOBIN 35.2 pg (27.0-31.0); MEAN CORPUSCULAR VOLUME 106.7 fL (80.0-94.0); MEAN PLATELET VOLUME 10.7 fL (7.4-11.4); MONOCYTES # (AUTO) 0.8 10^3/uL (0.0-1.0); MONOCYTES % (AUTO) 8.9 %; NEUTROPHILS # (AUTO) 5.9 10^3/uL (1.5-6.6); NEUTROPHILS % (AUTO) 64.8 %; PLT - PLATELET COUNT 230 10^3/uL (130-450); RED BLOOD COUNT 4.06 10^6/uL (4.70-6.10); RED CELL DISTRIBUTION WIDTH 13.3 % (12.0-15.0); WHITE BLOOD COUNT 9.2 x10^3/uL (4.8-10.8)
[2019-07-24 13:18] LABS: ALBUMIN/GLOBULIN RATIO 1.5 (1.0-2.2); BILIRUBIN,TOTAL 0.8 mg/dL (0.2-1.0); TOTAL PROTEIN 6.6 g/dL (6.7-8.2)
== END 2019-07-24 12:26 | disposition home or self-care (01) ==
LOC: LAB 12:25
PROVIDERS: ATTEND Pharmacist
DX: I10 Essential (primary) hypertension (principal); R10.9 Unspecified abdominal pain; D64.9 Anemia, unspecified; I48.91 Unspecified atrial fibrillation
CPT/HCPCS: 36415; 80053; 83690; 84443; 85025; 85610

== ENCOUNTER 2019-08-21 13:28 | Outpatient (CLI) | payer MEDICARE, BC | END 2019-08-21 13:29 | disposition home or self-care (01) | LOC: LAB 13:28 | PROVIDERS: ATTEND Pharmacist | DX: I48.91 Unspecified atrial fibrillation (principal) | CPT/HCPCS: 85610 ==

== ENCOUNTER 2019-12-21 13:20 | Outpatient (CLI) | payer MEDICARE, BC | END 2019-12-21 13:21 | disposition home or self-care (01) | LOC: LAB 13:20 | PROVIDERS: ATTEND Pharmacist | DX: I48.91 Unspecified atrial fibrillation (principal) | CPT/HCPCS: 85610 ==

== ENCOUNTER 2020-03-23 13:06 | Outpatient (CLI) | payer MEDICARE, BC | END 2020-03-23 13:07 | disposition home or self-care (01) | LOC: LAB 13:06 | PROVIDERS: ATTEND Pharmacist | DX: I48.91 Unspecified atrial fibrillation (principal) | CPT/HCPCS: 85610 ==

== ENCOUNTER 2020-04-23 08:00 | Outpatient (CLI) | payer MEDICARE, BC ==
[2020-04-23 17:08] LABS: PT - PROTHROMBIN TIME 57.5 secs (9.9-12.6)
[2020-04-23 17:41] LABS: INR 5.8 (0.8-1.2)
== END 2020-04-23 23:59 | disposition home or self-care (01) ==
LOC: LAB 08:00
PROVIDERS: ATTEND Pharmacist
DX: I48.91 Unspecified atrial fibrillation (principal)
CPT/HCPCS: 85610

== ENCOUNTER 2020-04-23 14:31 | Emergency (ER) | payer MEDICARE, BC ==
--- NOTE | 2020-04-23 14:58 | ED Physician Documentation ---
PD HPI UPPER EXT INJURY - Stated complaint Stated Complaint: RT ARM INJ - Chief complaint Chief Complaint: Trauma Ext - History obtained from History obtained from: Patient - Additonal information Additional information: Slip and fall yesterday directly onto the right shoulder, he is sure he did not hit his head. He has persistent pain and limited range of motion. No other injuries. Review of Systems Constitutional: reports: Reviewed and negative Cardiac: reports: Reviewed and negative Respiratory: reports: Reviewed and negative PD PAST MEDICAL HISTORY - Past Medical History Cardiovascular: Atrial fibrillation Respiratory: None Endocrine/Autoimmune: None GI: None : Benign prostate hypertrophy HEENT: Glaucoma Psych: None Musculoskeletal: None Derm: None - Past Surgical History Past Surgical History: Yes Cardiovascular: Pacemaker HEENT: Tonsil/Adenoidectomy - Present Medications Home Medications: Ambulatory Orders Medication Instructions Recorded Confirmed Meclizine [Antivert] 12.5 mg PO Q6H PRN #40 tablet 09/26/17 Amox/Clav 875/125 [Augmentin] 1 each PO Q12H #8 tablet 09/29/17 Finasteride 5 mg PO QPM #30 09/29/17 09/18/17 Tamsulosin [Flomax] 0.4 mg PO QPM #30 09/29/17 09/18/17 Warfarin [Coumadin] 2.5 mg PO 1400 #30 tablet 09/29/17 - Allergies Allergies/Adverse Reactions: Allergies Allergy/AdvReac Type Severity Reaction Status Date / Time No Known Drug Allergies Allergy Verified 04/23/20 14:43 - Social History Does the pt smoke?: No Smoking Status: Never smoker Does the pt drink ETOH?: No Does the pt have substance abuse?: No - Immunizations Immunizations are current?: Yes PD ED PE NORMAL - Vitals Vital signs reviewed: Yes - General General: Alert and oriented X 3, No acute distress - Extremities Extremities: Other (Tender in the glenohumeral joint itself, not tender over the clavicle. He is unable to range it at all due to pain.) - Neuro Neuro: No motor deficit, No sensory deficit, Normal speech Results - Vitals Vitals: Vital Signs - 24 hr 04/23/20 04/23/20 04/23/20 14:38 16:10 16:23 Temperature 37.3 C Heart Rate 62 63 63 Respiratory 18 18 24 Rate Blood Pressure 149/55 H 149/88 H 149/88 H O2 Saturation 97 100 100 04/23/20 04/23/20 16:25 16:39 Temperature Heart Rate 67 63 Respiratory 20 20 Rate Blood Pressure 117/69 128/67 O2 Saturation 98 100 Oxygen O2 Source [With Activity] Room air O2 Source Room air Procedures - Reduction Body part reduced: Right, Shoulder Fracture or dislocation: Fracture dislocation Anesthesia: Conscious sedation Shoulder reduction technique: [place] / ext rotation Reduction aftercare: Sling - Procedural sedation Sedation prep: Time out completed, ASA 3 - severe disease Sedation medications: propofol (30 then 20mg IVP, total 50mg) Patient status during sedation: Responds to tactile, Vitals remained stable Sedation recovery: Recovered uneventfully Time in sedation (Minutes): 12 PD MEDICAL DECISION MAKING - ED course ED course: Initially tried some maneuvers without sedation, I was a little hesitant to sedate him given his comorbidities, the conservative maneuvers were unsuccessful. However was actually not that hard to sedate him and reduce it. Reduction on x-ray looks good. Departure - Departure Disposition: 01 Home, Self Care Clinical Impression: Hill-Sachs lesion of right shoulder Dislocation of right shoulder joint Qualifiers: Encounter type: initial encounter Qualified Code(s): S43.004A - Unspecified dislocation of right shoulder joint, initial encounter Condition: Stable Record reviewed to determine appropriate education?: Yes Instructions: ED Dislocation Shoulder Redu Follow-Up: [facility] [Provider Group] - Within 1 week Comments: Tylenol as needed for pain, keep the sling on for a couple of days then he can start gentle range of motion exercises. He needs to follow-up with an orthopedic surgeon, next available appointment. Call Saturday.
[2020-04-23] MEDS ORDERED: PROPOFOL 200 MG/20 ML VIAL IVP STA (15:26)
--- NOTE | 2020-04-23 15:42 | XRAY Report ---
PROCEDURE: Shoulder 3 View RT INDICATIONS: shoulder inj TECHNIQUE: 3 views of the shoulder were acquired. COMPARISON: None. FINDINGS: Bones: There is an anterior shoulder dislocation seen, with an avulsion fracture involving the poste rior aspect of the humeral head. No definite associated glenoid fracture can be seen on these images. Visualized ribs appear intact. Age-appropriate degenerative changes are seen. Soft tissues: Surrounding soft tissue swelling is seen. No suspicious soft tissue calcifications. T he visualized lung demonstrates a normal appearance. IMPRESSION: Anterior shoulder dislocation, with an associated Hill-Sachs fracture. Reviewed by: Skyler Barry MD on 04/23/2020 2:41 PM LARA Approved by: Skyler Barry MD on 04/23/2020 2:41 PM AKALESIA Station ID: [id number]
[2020-04-23 16:41] VITALS: BP 128/67
--- NOTE | 2020-04-23 17:02 | XRAY Report ---
PROCEDURE: Shoulder 2 View RT INDICATIONS: post reduction TECHNIQUE: 2 views of the shoulder were acquired. COMPARISON: 04/23/2020, presenting films. FINDINGS: Bones: Shoulder has been relocated. The previously seen Hill-Sachs fracture is much better aligned. No definite bony Bank[place] fracture is seen. Degenerative changes are seen, including subacromial spurring. No suspicious bony lesions. Visualized ribs appear intact. Soft tissues: No suspicious soft tissue calcifications. The visualized lung demonstrates a normal a ppearance. IMPRESSION: Successful right shoulder relocation. The previously seen Hill-Sachs fracture is much better aligned. Reviewed by: Skyler Barry MD on 04/23/2020 4:01 PM LARA Approved by: Skyler Barry MD on 04/23/2020 4:01 PM LARA Station ID: [id number]
== END 2020-04-23 17:13 | disposition home or self-care (01) ==
LOC: ED 14:31
DX: S42.291A Other displaced fracture of upper end of right humerus, initial encounter for closed fracture (principal); W01.0XXA Fall on same level from slipping, tripping and stumbling without subsequent striking against object, initial encounter; I48.91 Unspecified atrial fibrillation; Z79.01 Long term (current) use of anticoagulants; N40.0 Benign prostatic hyperplasia without lower urinary tract symptoms; H40.9 Unspecified glaucoma; Z95.0 Presence of cardiac pacemaker
CPT/HCPCS: 94770; 99152; 99283; 99285

== ENCOUNTER 2020-04-23 17:42 | Emergency (ER) | payer MEDICARE, BC ==
[2020-04-23] MEDS ORDERED: PHYTONADIONE 10 MG/ML AMP SUBQ STA (18:04)
--- NOTE | 2020-04-23 18:53 | ED Physician Documentation ---
History of Present Illness - Stated complaint Stated Complaint: Abnormal lab - Chief complaint Chief Complaint: General - History obtained from History obtained from: Patient, Family - History of Present Illness Timing: Today Pain level max: 5 Pain level now: 4 - Additonal information Additional information: 89-year-old male with a history of dementia, lives at home with his . Fell last night. Seen here earlier today for a shoulder dislocation with fracture. This was reduced and the patient sent home. Had an outpatient lab draw with an INR of 5.8. Told to come back to the emergency department. Review of Systems Constitutional: denies: Fever, Chills Cardiac: denies: Chest pain / pressure Respiratory: denies: Cough GI: denies: Abdominal Pain, Nausea, Vomiting, Diarrhea Skin: denies: Rash, Abrasion (s) Musculoskeletal: denies: Neck pain, Back pain PD PAST MEDICAL HISTORY - Past Medical History Past Medical History: Yes Cardiovascular: Atrial fibrillation Respiratory: None Endocrine/Autoimmune: None GI: None : Benign prostate hypertrophy HEENT: Glaucoma Psych: None Musculoskeletal: None Derm: None - Past Surgical History Past Surgical History: Yes Cardiovascular: Pacemaker HEENT: Tonsil/Adenoidectomy - Present Medications Home Medications: Ambulatory Orders Medication Instructions Recorded Confirmed Meclizine [Antivert] 12.5 mg PO Q6H PRN #40 tablet 09/26/17 Amox/Clav 875/125 [Augmentin] 1 each PO Q12H #8 tablet 09/29/17 Finasteride 5 mg PO QPM #30 09/29/17 09/18/17 Tamsulosin [Flomax] 0.4 mg PO QPM #30 09/29/17 09/18/17 Warfarin [Coumadin] 2.5 mg PO 1400 #30 tablet 09/29/17 - Allergies Allergies/Adverse Reactions: Allergies Allergy/AdvReac Type Severity Reaction Status Date / Time No Known Drug Allergies Allergy Verified 04/23/20 18:02 - Social History Does the pt smoke?: No Smoking Status: Never smoker Does the pt drink ETOH?: No Does the pt have substance abuse?: No - Immunizations Immunizations are current?: Yes PD ED PE NORMAL - Vitals Vital signs reviewed: Yes - General General: Alert and oriented X 3, No acute distress, Well developed/nourished - HEENT HEENT: Atraumatic, PERRL, Ears normal, Moist mucous membranes, Pharynx benign - Neck Neck: Supple, no meningeal sign, No bony TTP - Cardiac Cardiac: RRR - Respiratory Respiratory: No respiratory distress, Clear bilaterally - Abdomen Abdomen: Normal bowel sounds, Soft, Non tender, Non distended - Back Back: No CVA TTP, No spinal TTP - Derm Derm: Warm and dry - Extremities Extremities: Other (Right arm is in a sling, nvi) - Neuro Neuro: Alert and oriented X 3 - Psych Psych: Normal mood, Normal affect Results - Vitals Vitals: Vital Signs - 24 hr 04/23/20 04/23/20 17:58 20:22 Temperature 37.2 C Heart Rate 63 61 Respiratory 20 16 Rate Blood Pressure 123/62 130/65 O2 Saturation 98 98 Oxygen O2 Source [With Activity] Room air O2 Source Room air - Labs Labs: Laboratory Tests 04/23/20 19:10 PT 60.8 H INR 6.1 H* - Rads (name of study) head CT Radiology: Prelim report reviewed, EMP read contemporaneously, See rad report (no acute abnormality. ) PD MEDICAL DECISION MAKING - ED course Complexity details: reviewed results, re-evaluated patient, considered differential, d/w patient, d/w family ED course: 89-year-old male with supratherapeutic INR and a fall. His insisted on repeating the lab. It still came back elevated. Given his recent dislocation t hat was reduced earlier today, a small dose of vitamin K was given. We will have him follow-up with his doctor to recheck his INR before restarting his warfarin. Negative head CT. Patient and family counseled regarding signs and symptoms for which I believe and urgent re-evaluation would be necessary. Patient with good understanding of and agreement to plan and is comfortable going home at this time This document was made in part using voice recognition software. While efforts are made to proofread this document, sound alike and grammatical errors may occur. Departure - Departure Disposition: 01 Home, Self Care Clinical Impression: Supratherapeutic INR Dislocation of right shoulder joint Qualifiers: Encounter type: initial encounter Qualified Code(s): S43.004A - Unspecified dislocation of right shoulder joint, initial encounter Condition: Good Instructions: International Normalized Ratio Follow-Up: Phoenix Shah MD [Physician No Access] - Kaylin Spence MD [Provider Admit Priv/Credential] - West Tuttle MD [Provider Admit Priv/Credential] - Within 3 Days Comments: Stop your warfarin for 3 days, Aylin snyder can recheck your INR in 3 days and tell you when to restart this medication. Follow up with your doctor for further care. Discharge Date/Time: 04/23/20 20:25
--- NOTE | 2020-04-23 19:05 | CT Report ---
PROCEDURE: HEAD WO INDICATIONS: fall, head injury, elevated INR TECHNIQUE: Noncontrast 4.5 mm thick angled axial sections acquired from the foramen magnum to the vertex. For r adiation dose reduction, the following was used: automated exposure control, adjustment of mA and/or kV according to patient size. COMPARISON: CT head 09/17/2017. FINDINGS: Image quality: Excellent. CSF spaces: Basal cisterns are patent. No extra-axial fluid collections. Ventricles are normal in size and shape. Brain: No midline shift. No intracranial masses or hemorrhage. Basal ganglia calcifications, uncha nged. Pacheco-white matter interface is normal. Skull and face: Calvarium and visualized facial bones are intact, without suspicious lesions. Sinuses: Visualized sinuses and mastoids are clear. IMPRESSION: No acute intracranial abnormality. Reviewed by: Diogo Barkley MD on 04/23/2020 7:03 PM PDT Approved by: Diogo Barkley MD on 04/23/2020 7:03 PM PDT Station ID: [id number]
[2020-04-23 19:22] LABS: PT - PROTHROMBIN TIME 60.8 secs (9.9-12.6)
[2020-04-23 19:30] LABS: INR 6.1 (0.8-1.2)
[2020-04-23 20:23] VITALS: BP 130/65
== END 2020-04-23 20:25 | disposition home or self-care (01) ==
LOC: ED 17:42
DX: R79.1 Abnormal coagulation profile (principal); S43.004D Unspecified dislocation of right shoulder joint, subsequent encounter; W18.30XD Fall on same level, unspecified, subsequent encounter; I48.91 Unspecified atrial fibrillation; N40.0 Benign prostatic hyperplasia without lower urinary tract symptoms; H40.9 Unspecified glaucoma; Z79.01 Long term (current) use of anticoagulants; Z95.0 Presence of cardiac pacemaker; S42.291A Other displaced fracture of upper end of right humerus, initial encounter for closed fracture; W01.0XXA Fall on same level from slipping, tripping and stumbling without subsequent striking against object, initial encounter
CPT/HCPCS: 70450; 85610; 94770; 96372; 99152; 99283; 99284; 99285

== ENCOUNTER 2020-04-25 23:49 | Outpatient (CLI) | payer MEDICARE, BC | END 2020-04-25 23:50 | disposition critical access hospital (66) | LOC: EMS 23:49 | PROVIDERS: ATTEND Surgery | DX: M79.621 Pain in right upper arm (principal); S40.021A Contusion of right upper arm, initial encounter; X58.XXXA Exposure to other specified factors, initial encounter | CPT/HCPCS: A0425; A0429 ==

== ENCOUNTER 2020-04-25 23:56 | Emergency (ER) | payer MEDICARE, BC ==
[2020-04-26] MEDS ORDERED: SODIUM CHLORIDE 0.9% 1,000 ML IV STA (00:24)
--- NOTE | 2020-04-26 00:29 | ED Physician Documentation ---
History of Present Illness - Stated complaint Stated Complaint: SHOULDER FX, INCREASING PAIN - Chief complaint Chief Complaint: Trauma Ext - History obtained from History obtained from: Patient, Family, EMS - Additonal information Additional information: Patient is brought to the emergency department by EMS for chief complaint of weakness for the last few days. The patient was seen here for a right shoulder fracture dislocation after taking a fall 2-1/2 days ago. He was found to have a supratherapeutic INR at over 5 at that time and his Coumadin clinic from [facility] told him to come back here the next day and have the INR rechecked. The patient had not yet taken another dose of his Coumadin and was advised not to. His repeat INR was over 6. states the last dose of the patient's warfarin was at noon on Saturday which was nearly 3 days ago. Who patient's today noticed that the patient had extensive bruising on his medial right upper arm, along with swelling. She was concerned that he may be continuing to bleed with his INR being elevated, and that may be what was making him weak. The patient has not exhibited any other signs of bleeding anywhere and denies any pain in his abdomen or chest. Patient specifically denies any blood in his urine or stools. The patient is on warfarin because of chronic atrial fibrillation. He is also been diagnosed with failure to thrive and though he is chronically somewhat weak, He is still generally able to get around. The notes that the patient had a right-sided hip fracture with delayed healing which has left him with altered function in form in the right lower extremity. This does occasionally cause him to trip and fall. However, the patient has not had any further falls since the one on Saturday. Review of Systems Ten Systems: 10 systems reviewed and negative Constitutional: reports: Reviewed and negative Eyes: reports: Reviewed and negative Ears: reports: Reviewed and negative Nose: reports: Reviewed and negative Throat: reports: Reviewed and negative Cardiac: reports: Reviewed and negative Respiratory: reports: Reviewed and negative GI: reports: Reviewed and negative : reports: Reviewed and negative Skin: reports: Other (Bruising, swelling right upper extremity) Musculoskeletal: reports: Joint pain, Extremity swelling Neurologic: reports: Generalized weakness Psychiatric: reports: Reviewed and negative Endocrine: reports: Reviewed and negative Immunocompromised: reports: Reviewed and negative PD PAST MEDICAL HISTORY - Past Medical History Past Medical History: Yes Cardiovascular: Atrial fibrillation Respiratory: None Endocrine/Autoimmune: None GI: None : Benign prostate hypertrophy HEENT: Glaucoma Psych: None Musculoskeletal: None Derm: None - Past Surgical History Past Surgical History: Yes Cardiovascular: Pacemaker HEENT: Tonsil/Adenoidectomy - Present Medications Home Medications: Ambulatory Orders Medication Instructions Recorded Confirmed Finasteride 5 mg PO QPM #30 09/29/17 04/26/20 Tamsulosin [Flomax] 0.4 mg PO QPM #30 09/29/17 04/26/20 Warfarin [Coumadin] 2.5 mg PO 1400 #30 tablet 09/29/17 04/26/20 - Allergies Allergies/Adverse Reactions: Allergies Allergy/AdvReac Type Severity Reaction Status Date / Time No Known Drug Allergies Allergy Verified 04/26/20 00:08 - Social History Does the pt smoke?: No Smoking Status: Never smoker Does the pt drink ETOH?: No Does the pt have substance abuse?: No - Immunizations Immunizations are current?: Yes - POLST Patient has POLST: No PD ED PE NORMAL - Vitals Vital signs reviewed: Yes - General General: Alert and oriented X 3, No acute distress, Other (Patient is thin and appears His stated age.) - HEENT HEENT: Atraumatic, PERRL, EOMI, Moist mucous membranes - Neck Neck: Supple, no meningeal sign, No bony TTP - Cardiac Cardiac: RRR, No murmur, Strong equal pulses - Respiratory Respiratory: No respiratory distress, Clear bilaterally - Abdomen Abdomen: Soft, Non tender, Non distended - Back Back: No CVA TTP, No spinal TTP - Derm Derm: Warm and dry, Other (Patient has a large area of dark reddish-purple contusion involving most of the medial aspect of his right upper arm to the elbow. The area is approximately 15 x 10 cm, length by with. No induration. No pulsatile mass. Mild soft tissue swelling.) - Extremities Extremities: No deformity, No tenderness to palpate (Except for right shoulder), No edema (Other than right upper arm), No calf tenderness / cord - Neuro Neuro: Alert and oriented X 3, cold rolling machine setter 2-12 intact, No motor deficit, No sensory deficit, Normal speech - Psych Psych: Normal mood, Normal affect - Free text exam Free text exam: No tenderness of rib cage. No step-off. There is no tenderness or step-off over the hips and no pain with side to side or AP compression of pelvis. Results - Vitals Vitals: Oxygen O2 Source [With Activity] Room air O2 Source Room air - Labs Labs: Laboratory Tests 04/26/20 04/26/20 04/26/20 01:05 01:05 01:05 WBC 8.7 RBC 3.29 L Hgb 11.6 L Hct 34.2 L MCV 104.0 H MCH 35.3 H MCHC 33.9 RDW 13.3 Plt Count 191 MPV 11.2 Neut # (Auto) 4.3 Lymph # (Auto) 2.9 [place] # (Auto) 1.3 H Eos # (Auto) 0.1 Baso # (Auto) 0.0 Absolute Nucleated RBC 0.00 Nucleated RBC % 0.0 PT 20.2 H INR 1.9 H Sodium 139 Potassium 4.3 Chloride 105 Carbon Dioxide 25 Anion Gap 9.0 BUN 30 H Creatinine 0.9 Estimated GFR (MDRD) 80 L Glucose 110 H Calcium 8.3 L Total Bilirubin 0.6 AST 34 ALT 20 Alkaline Phosphatase 46 Total Protein 5.5 L Albumin 3.1 L Globulin 2.4 Albumin/Globulin Ratio 1.3 Lipase 62 H PD MEDICAL DECISION MAKING - ED course Complexity details: reviewed old records, reviewed results, re-evaluated patient, considered differential, d/w patient, d/w family ED course: I discussed with the patient's that the patient's exam is reassuring in terms of any concern for ongoing bleeding internally. The patient has no abdominal pain or chest pain and has a benign abdominal exam. He has not had any blood in his urine. His ribs and hips are nontender to palpation and he is full range of motion at both hips. I will recheck his INR today to see how it is doing, as his states she does not know when the patient is supposed to restart his warfarin. I will also check a CBC and CMP and give the patient a liter of IV fluid. The patient's labs were actually fairly unremarkable. His INR was down to 1.89, and I did discuss with the and patient that he should get back on his Coumadin now. I have advised the patient's to get him back on the schedule that he was previously on. I do not find any evidence of further trauma or of ongoing bleeding, and I have reassured the of this.We have discussed home management of the symptoms, the need for follow-up, and the usual indications for return. Departure - Departure Disposition: 01 Home, Self Care Clinical Impression: Generalized weakness, Dehydration Humerus fracture Qualifiers: Encounter type: subsequent encounter Humerus Location: proximal Fracture type: closed Fracture morphology: unspecified fracture morphology Laterality: right Fracture healing: with routine healing Qualified Code(s): S42.201D - Unspecified fracture of upper end of right humerus, subsequent encounter for fracture with routine healing Anemia Qualifiers: Anemia type: unspecified type Qualified Code(s): D64.9 - Anemia, unspecified Condition: Stable Instructions: ED Dehydration Comments: Your labs, overall, look fairly good. Use showed signs on lab studies of mild dehydration and mild anemia, or low red blood cells. Both of these could cause you to feel tired and generally, a little weak. A couple of other lab values were very mildly abnormal but not to a degree to raise concern for more serious condition. The INR was found to be 1.889, and as such, you should restart your warfarin, according to your previous schedule of dosing, this morning. In other words, you may take 2-1/2 mg as you would have normally done on Tuesdays prior to this. You may return to your Cstgzo-Sspexpded-Gobtea schedule of 5 mg, as well. [facility] for further guidance regarding your warfarin. Discharge Date/Time: 04/26/20 02:35
[2020-04-26 01:29] LABS: ALBUMIN 3.1 g/dL (3.2-5.5); ALBUMIN/GLOBULIN RATIO 1.3 (1.0-2.2); BILIRUBIN,TOTAL 0.6 mg/dL (0.2-1.0); CALCIUM 8.3 mg/dL (8.5-10.3); CREATININE 0.9 mg/dL (0.6-1.2); TOTAL PROTEIN 5.5 g/dL (6.7-8.2)
[2020-04-26 01:30] LABS: BASOPHILS % (AUTO) 0.5 %; EOSINOPHILS # (AUTO) 0.1 10^3/uL (0.0-0.7); EOSINOPHILS % (AUTO) 0.9 %; HGB - HEMOGLOBIN 11.6 g/dL (14.0-18.0); LYMPHOCYTES # (AUTO) 2.9 10^3/uL (1.5-3.5); LYMPHOCYTES % (AUTO) 33.7 %; MEAN CORPUSCULAR HEMOGLOBIN 35.3 pg (27.0-31.0); MEAN CORPUSCULAR HGB CONC 33.9 g/dL (32.0-36.0); MEAN PLATELET VOLUME 11.2 fL (7.4-11.4); MONOCYTES # (AUTO) 1.3 10^3/uL (0.0-1.0); NEUTROPHILS # (AUTO) 4.3 10^3/uL (1.5-6.6); NEUTROPHILS % (AUTO) 49.6 %; PLT - PLATELET COUNT 191 10^3/uL (130-450); RED BLOOD COUNT 3.29 10^6/uL (4.70-6.10); RED CELL DISTRIBUTION WIDTH 13.3 % (12.0-15.0); WHITE BLOOD COUNT 8.7 x10^3/uL (4.8-10.8)
[2020-04-26 01:31] LABS: INR 1.9 (0.8-1.2); PT - PROTHROMBIN TIME 20.2 secs (9.9-12.6)
[2020-04-26 02:32] VITALS: BP 137/73
== END 2020-04-26 02:35 | disposition home or self-care (01) ==
LOC: EDUNIT# → ED 23:56
DX: E86.0 Dehydration (principal); D64.9 Anemia, unspecified; R53.1 Weakness; I48.20 Chronic atrial fibrillation, unspecified; Z79.01 Long term (current) use of anticoagulants; S42.201A Unspecified fracture of upper end of right humerus, initial encounter for closed fracture; S40.021A Contusion of right upper arm, initial encounter; W18.30XA Fall on same level, unspecified, initial encounter
CPT/HCPCS: 36415; 80053; 83690; 85025; 85610; 96360; 99284

== ENCOUNTER 2020-04-26 02:33 | Outpatient (CLI) | payer MEDICARE, BC | END 2020-04-26 02:34 | disposition home or self-care (01) | LOC: EMS 02:33 | PROVIDERS: ATTEND Surgery | DX: R53.1 Weakness (principal); S42.91XA Fracture of right shoulder girdle, part unspecified, initial encounter for closed fracture; W19.XXXA Unspecified fall, initial encounter | CPT/HCPCS: A0425; A0428 ==

== ENCOUNTER 2020-05-02 13:32 | Outpatient (CLI) | payer MEDICARE, BC ==
--- NOTE | 2020-05-02 16:25 | XRAY Report ---
PROCEDURE: Shoulder 3 View RT INDICATIONS: R PROXIMAL HUMERUS FX TECHNIQUE: 3 views of the shoulder were acquired. COMPARISON: X-ray shoulder 04/23/2020 FINDINGS: Bones: There has been interval progression of the previous Hill-Sachs fracture with areas of comminut ed fragmentation compared to prior exam. Alignment is unchanged. No suspicious bony lesions. Visuali zed ribs appear intact. Soft tissues: No suspicious soft tissue calcifications. IMPRESSION: Interval fragmentation and comminution of previously noted nondisplaced Hill-Sachs fract ure. Reviewed by: Shannon Jennings MD on 05/02/2020 4:24 PM PST Approved by: Shannon Jennings MD on 05/02/2020 4:24 PM PST Station ID: [id number]
== END 2020-05-02 23:59 | disposition home or self-care (01) ==
LOC: DI.WCP 13:32
PROVIDERS: ATTEND Physician Assistant
DX: S42.201D Unspecified fracture of upper end of right humerus, subsequent encounter for fracture with routine healing (principal)

== ENCOUNTER 2020-05-02 14:50 | Outpatient (CLI) | payer MEDICARE, BC ==
[2020-05-02 18:04] LABS: PT - PROTHROMBIN TIME 21.7 secs (9.9-12.6)
== END 2020-05-02 23:59 | disposition home or self-care (01) ==
LOC: LAB.WCP 14:50
PROVIDERS: ATTEND Pharmacist
DX: I48.91 Unspecified atrial fibrillation (principal)
CPT/HCPCS: 36415; 85610

== ENCOUNTER 2020-06-21 12:56 | Outpatient (CLI) | payer MEDICARE, BC | END 2020-06-21 12:57 | disposition home or self-care (01) | LOC: LAB 12:56 | PROVIDERS: ATTEND Pharmacist | DX: I48.91 Unspecified atrial fibrillation (principal) | CPT/HCPCS: 85610 ==

== ENCOUNTER 2020-07-27 08:00 | Outpatient (CLI) | payer MEDICARE, BC ==
[2020-07-27 12:13] LABS: BASOPHILS % (AUTO) 0.5 %; EOSINOPHILS % (AUTO) 0.5 %; HGB - HEMOGLOBIN 14.5 g/dL (14.0-18.0); LYMPHOCYTES % (AUTO) 29.3 %; MEAN CORPUSCULAR HEMOGLOBIN 34.4 pg (27.0-31.0); MEAN CORPUSCULAR HGB CONC 33.3 g/dL (32.0-36.0); MEAN CORPUSCULAR VOLUME 103.6 fL (80.0-94.0); MEAN PLATELET VOLUME 10.4 fL (7.4-11.4); MONOCYTES % (AUTO) 7.9 %; NEUTROPHILS % (AUTO) 61.5 %; PLT - PLATELET COUNT 218 10^3/uL (130-450); RED BLOOD COUNT 4.21 10^6/uL (4.70-6.10); RED CELL DISTRIBUTION WIDTH 13.1 % (12.0-15.0); WHITE BLOOD COUNT 7.4 x10^3/uL (4.8-10.8)
[2020-07-27 12:24] LABS: ABNORMAL LYMPHS % (MANUAL) 0 %
[2020-07-27 12:25] LABS: INR 2.5 (0.8-1.2); PT - PROTHROMBIN TIME 26.6 secs (9.9-12.6)
[2020-07-27 12:33] LABS: ALBUMIN 4.2 g/dL (3.2-5.5); ALBUMIN/GLOBULIN RATIO 1.8 (1.0-2.2); ALKALINE PHOSPHATASE 56 IU/L (42-121); ALT ALANINE AMINOTRANSFERASE 17 IU/L (10-60); AST ASPARTATE AMINOTRANSFERASE 22 IU/L (10-42); BILIRUBIN,TOTAL 0.8 mg/dL (0.2-1.0); BUN - BLOOD UREA NITROGEN 28 mg/dL (6-20); CALCIUM 9.2 mg/dL (8.5-10.3); CARBON DIOXIDE - CO2 27 mmol/L (21-32); CHLORIDE 101 mmol/L (101-111); CHOL/HDL RATIO 3.2 (<5.0); CHOLESTEROL 175 mg/dL; GLUCOSE 103 mg/dL (70-100); HDL CHOLESTEROL 55 mg/dL; LDL CHOLESTEROL,CALCULATED 111 mg/dL; TOTAL PROTEIN 6.6 g/dL (6.7-8.2); VLDL CHOLESTEROL 9 mg/dL
[2020-07-27 12:48] LABS: BAND NEUTROPHILS % (MANUAL) 2 %; LYMPHOCYTES # (MANUAL) 1.6 10^3/uL (1.5-3.5); LYMPHOCYTES % (MANUAL) 7 %; MONOCYTES # (MANUAL) 0.3 10^3/uL (0.0-1.0); PLATELET MORPHOLOGY RARE GIANT PLATELETS (NORMAL)
[2020-07-27 12:56] LABS: DIFFERENTIAL COMMENT MANUAL DIFFERENTIAL
== END 2020-07-27 23:59 | disposition home or self-care (01) ==
LOC: LAB 08:00
PROVIDERS: ATTEND Internal Medicine
DX: F03.90 Unspecified dementia, unspecified severity, without behavioral disturbance, psychotic disturbance, mood disturbance, and anxiety (principal); I48.91 Unspecified atrial fibrillation; Z83.3 Family history of diabetes mellitus
CPT/HCPCS: 36415; 80053; 80061; 82306; 82607; 83036; 83721; 84443; 85025; 85610

== ENCOUNTER 2020-08-17 08:00 | Outpatient (CLI) | payer MEDICARE, BC | END 2020-08-17 23:59 | disposition home or self-care (01) | LOC: LAB 08:00 | PROVIDERS: ATTEND Pharmacist | DX: I48.91 Unspecified atrial fibrillation (principal) | CPT/HCPCS: 85610 ==

== ENCOUNTER 2020-09-26 13:01 | Outpatient (CLI) | payer MEDICARE, BC | END 2020-09-26 13:02 | disposition home or self-care (01) | LOC: LAB 13:01 | DX: I48.91 Unspecified atrial fibrillation (principal) | CPT/HCPCS: 85610 ==

== ENCOUNTER 2020-11-14 13:35 | Outpatient (CLI) | payer MEDICARE, BC | END 2020-11-14 13:36 | disposition home or self-care (01) | LOC: LAB 13:35 | PROVIDERS: ATTEND Pharmacist | DX: I48.91 Unspecified atrial fibrillation (principal); Z79.01 Long term (current) use of anticoagulants | CPT/HCPCS: 36416; 85610 ==

== ENCOUNTER 2020-11-29 12:28 | Outpatient (CLI) | payer MEDICARE, BC | END 2020-11-29 12:29 | disposition home or self-care (01) | LOC: LAB 12:28 | PROVIDERS: ATTEND Pharmacist | DX: I48.91 Unspecified atrial fibrillation (principal); Z79.01 Long term (current) use of anticoagulants | CPT/HCPCS: 36416; 85610 ==

== ENCOUNTER 2021-01-03 12:06 | Outpatient (CLI) | payer MEDICARE, BC | END 2021-01-03 12:07 | disposition home or self-care (01) | LOC: LAB 12:06 | PROVIDERS: ATTEND Pharmacist | DX: I48.91 Unspecified atrial fibrillation (principal); Z79.01 Long term (current) use of anticoagulants | CPT/HCPCS: 36416; 85610 ==

== ENCOUNTER 2021-02-15 12:26 | Outpatient (CLI) | payer MEDICARE, BC | END 2021-02-15 12:27 | disposition home or self-care (01) | LOC: LAB 12:26 | PROVIDERS: ATTEND Pharmacist | DX: I48.91 Unspecified atrial fibrillation (principal); Z79.01 Long term (current) use of anticoagulants | CPT/HCPCS: 36416; 85610 ==

== ENCOUNTER 2021-03-17 08:00 | Outpatient (CLI) | payer MEDICARE, BC | END 2021-03-17 23:59 | disposition home or self-care (01) | LOC: LAB 08:00 | PROVIDERS: ATTEND Pharmacist | DX: I48.91 Unspecified atrial fibrillation (principal); Z79.01 Long term (current) use of anticoagulants | CPT/HCPCS: 36416; 85610 ==

== ENCOUNTER 2021-04-24 11:52 | Outpatient (CLI) | payer MEDICARE, BC | END 2021-04-24 11:53 | disposition home or self-care (01) | LOC: LAB 11:52 | PROVIDERS: ATTEND Pharmacist | DX: Z79.01 Long term (current) use of anticoagulants (principal) | CPT/HCPCS: 36416; 85610 ==

== ENCOUNTER 2021-05-12 12:14 | Outpatient (CLI) | payer MEDICARE, BC ==
--- NOTE | 2021-05-12 14:25 | XRAY Report ---
PROCEDURE: Hip w/Pelvis 2-3V RT INDICATIONS: CONTUSION RT KNEE INIT ENCOUNTER,HX RT HIP REPLACE TECHNIQUE: AP pelvis with lateral view(s) of the right hip(s). COMPARISON: None. FINDINGS: Bones: There is prior right total hip arthroplasty with anatomic right hip alignment. No gross hardw are loosening or failure. Moderate left hip joint osteoarthritic changes are seen. No evidence of bret scular necrosis of femoral head. No fractures or dislocations. Pelvic ring appears intact. No suspi cious bony lesions. Soft tissues: The visualized bowel gas pattern is normal. No suspicious soft tissue calcifications. IMPRESSION: 1. Prior right total hip arthroplasty with anatomic right hip alignment. No evidence of hardware comp lication. No fracture or dislocation. 2. Moderate left hip joint osteoarthritis. No fracture or dislocation. No evidence of avascular necro sis. Reviewed by: Mateusz Freed MD on 05/12/2021 2:24 PM PST Approved by: Mateusz Freed MD on 05/12/2021 2:24 PM PST Station ID: [id number]
--- NOTE | 2021-05-12 16:11 | XRAY Report ---
PROCEDURE: Knee 3 View RT INDICATIONS: CONTUSION RT KNEE INIT ENCOUNTER,HX RT HIP REPLACE TECHNIQUE: 3 views of the right knee(s) were acquired. COMPARISON: None. FINDINGS: No acute fracture. No definite joint effusion. Scattered subchondral sclerosis and spurring. Moderat e narrowing of the lateral joint space and mild narrowing of the medial joint space. IMPRESSION: No acute findings. Chronic joint degeneration as above. If the patient's pain or other symptoms persist, consider further evaluation with MRI. Reviewed by: Jaylen Mendez MD on 05/12/2021 4:09 PM PST Approved by: Jaylen Mendez MD on 05/12/2021 4:09 PM PST Station ID: [id number]
== END 2021-05-12 12:15 | disposition home or self-care (01) ==
LOC: DI 12:14
PROVIDERS: ATTEND Internal Medicine
DX: M17.11 Unilateral primary osteoarthritis, right knee (principal); Z96.641 Presence of right artificial hip joint; M16.12 Unilateral primary osteoarthritis, left hip; I48.91 Unspecified atrial fibrillation; Z79.01 Long term (current) use of anticoagulants
CPT/HCPCS: 36416; 85610

== ENCOUNTER 2021-06-14 11:42 | Outpatient (CLI) | payer MEDICARE, BC | END 2021-06-14 11:43 | disposition home or self-care (01) | LOC: LAB 11:42 | PROVIDERS: ATTEND Pharmacist | DX: I48.91 Unspecified atrial fibrillation (principal); Z79.01 Long term (current) use of anticoagulants | CPT/HCPCS: 36416; 85610 ==

== ENCOUNTER 2021-07-19 11:48 | Outpatient (CLI) | payer MEDICARE, BC | END 2021-07-19 11:49 | disposition home or self-care (01) | LOC: LAB 11:48 | PROVIDERS: ATTEND Pharmacist | DX: I48.91 Unspecified atrial fibrillation (principal); Z79.01 Long term (current) use of anticoagulants | CPT/HCPCS: 36416; 85610 ==

== ENCOUNTER 2021-08-17 13:02 | Outpatient (CLI) | payer MEDICARE, BC | END 2021-08-17 13:03 | disposition home or self-care (01) | LOC: LAB 13:02 | PROVIDERS: ATTEND Pharmacist | DX: I48.91 Unspecified atrial fibrillation (principal); Z79.01 Long term (current) use of anticoagulants | CPT/HCPCS: 36416; 85610 ==

== ENCOUNTER 2021-09-25 12:13 | Outpatient (CLI) | payer MEDICARE, BC | END 2021-09-25 12:14 | disposition home or self-care (01) | LOC: LAB 12:13 | PROVIDERS: ATTEND Pharmacist | DX: I48.91 Unspecified atrial fibrillation (principal); Z79.01 Long term (current) use of anticoagulants | CPT/HCPCS: 36416; 85610 ==

== ENCOUNTER 2021-10-09 08:00 | Outpatient (CLI) | payer MEDICARE, BC | END 2021-10-09 23:59 | disposition home or self-care (01) | LOC: LAB 08:00 | PROVIDERS: ATTEND Pharmacist | DX: I48.91 Unspecified atrial fibrillation (principal); Z79.01 Long term (current) use of anticoagulants | CPT/HCPCS: 36416; 85610 ==

== ENCOUNTER 2021-10-09 15:09 | Outpatient (CLI) | payer MEDICARE, BC ==
--- NOTE | 2021-10-09 16:05 | DEXA Report ---
PROCEDURE: Dexa Spine and/or Hip INDICATIONS: DISORDER OF BONE TECHNIQUE: Dual energy x-ray absorptiometry (DXA) was performed on a CarbonFlow System. Regions measur ed are the AP Spine, femoral neck, and if needed forearm. COMPARISON: None. FINDINGS: Lumbar Spine: Bone Mineral Density 1.432 g/cm/cm,T score 1.8, normal Left Hip: Bone Mineral Density 0.986 g/cm/cm,T score -0.8, normal Left Femoral Neck: Bone Mineral Density 0.788 g/cm/cm, T score -2.2, osteopenia (T score greater or equal to -1.0: NORMAL) (T score from -1.1 to -2.4: OSTEOPENIA) (T score less than or equal to -2.5 to: OSTEOPOROSIS) Impression: Bone mineral density as detailed above. Patients with diagnosis of osteoporosis or osteopenia should have regular bone mineral density assess ment. For those eligible for Medicare, routine testing is allowed once every 2 years. Testing frequ ency can be increased for patients who have rapidly progressing disease or for those who are receivin g medical therapy to restore bone mass. Reviewed by: Paco Perdomo MD on 10/09/2021 4:03 PM PDT Approved by: Paco Perdomo MD on 10/09/2021 4:03 PM PDT Station ID: [id number]
== END 2021-10-09 15:10 | disposition home or self-care (01) ==
LOC: DI 15:09
PROVIDERS: ATTEND Internal Medicine
DX: M85.88 Other specified disorders of bone density and structure, other site (principal); I48.91 Unspecified atrial fibrillation; Z79.01 Long term (current) use of anticoagulants
CPT/HCPCS: 36416; 85610

== ENCOUNTER 2021-10-26 13:23 | Outpatient (CLI) | payer MEDICARE, BC | END 2021-10-26 13:24 | disposition home or self-care (01) | LOC: LAB 13:23 | PROVIDERS: ATTEND Pharmacist | DX: I48.91 Unspecified atrial fibrillation (principal); Z79.01 Long term (current) use of anticoagulants | CPT/HCPCS: 36416; 85610 ==

== ENCOUNTER 2021-10-31 12:24 | Outpatient (CLI) | payer MEDICARE, BC ==
--- NOTE | 2021-10-31 12:47 | XRAY Report ---
PROCEDURE: Chest 2 View X-Ray INDICATIONS: COUGH TECHNIQUE: 2 view(s) of the chest. COMPARISON: July 24, 2019. FINDINGS: SUPPORT DEVICES: A left cardiac device is seen. LUNGS/PLEURA: Mildly coarsened interstitial markings No focal consolidation, pleural effusion or spac e-occupying pneumothorax. MEDIASTINUM: The cardiomediastinal silhouette is within normal limits. BONES/SOFT TISSUES: No acute abnormality. Eventration of the right diaphragm. Remote fracture deformi ty of the right sixth rib. IMPRESSION: 1.No acute cardiopulmonary abnormality. Reviewed by: Paco Perdomo MD on 10/31/2021 12:45 PM PDT Approved by: Paco Perdomo MD on 10/31/2021 12:45 PM PDT Station ID: [id number]
== END 2021-10-31 12:25 | disposition home or self-care (01) ==
LOC: DI 12:24
PROVIDERS: ATTEND Internal Medicine Pulmonary Disease
DX: R05.9 Cough, unspecified (principal)

== ENCOUNTER 2021-12-11 11:10 | Outpatient (CLI) | payer MEDICARE, BC ==
[2021-12-11 11:38] LABS: BASOPHILS # (AUTO) 0.1 10^3/uL (0.0-0.1); BASOPHILS % (AUTO) 0.6 %; EOSINOPHILS # (AUTO) 0.1 10^3/uL (0.0-0.7); EOSINOPHILS % (AUTO) 0.9 %; HCT - HEMATOCRIT 41.2 % (42.0-52.0); LYMPHOCYTES # (AUTO) 2.1 10^3/uL (1.5-3.5); LYMPHOCYTES % (AUTO) 25.8 %; MEAN CORPUSCULAR HEMOGLOBIN 34.8 pg (27.0-31.0); MEAN CORPUSCULAR VOLUME 102.5 fL (80.0-94.0); MEAN PLATELET VOLUME 9.7 fL (7.4-11.4); MONOCYTES # (AUTO) 0.7 10^3/uL (0.0-1.0); MONOCYTES % (AUTO) 8.9 %; NEUTROPHILS % (AUTO) 63.5 %; PLT - PLATELET COUNT 274 10^3/uL (130-450); RED BLOOD COUNT 4.02 10^6/uL (4.70-6.10); RED CELL DISTRIBUTION WIDTH 13.2 % (12.0-15.0); WHITE BLOOD COUNT 7.9 x10^3/uL (4.8-10.8)
[2021-12-11 11:53] LABS: ALBUMIN 3.8 g/dL (3.2-5.5); ALBUMIN/GLOBULIN RATIO 1.4 (1.0-2.2); CALCIUM 8.8 mg/dL (8.5-10.3); POTASSIUM 4.3 mmol/L (3.5-5.0); TOTAL PROTEIN 6.6 g/dL (6.7-8.2)
[2021-12-11 12:10] LABS: THYROID STIMULATING HORMONE 1.62 uIU/mL (0.34-5.60)
[2021-12-11 12:33] LABS: ESTIMATED AVERAGE GLUCOSE 128 mg/dL (70-100); HEMOGLOBIN A1c% 6.1 % (4.27-6.07)
== END 2021-12-11 11:11 | disposition home or self-care (01) ==
LOC: LAB 11:10
PROVIDERS: ATTEND Internal Medicine
DX: I48.21 Permanent atrial fibrillation (principal); R73.03 Prediabetes; R63.5 Abnormal weight gain; Z79.01 Long term (current) use of anticoagulants
CPT/HCPCS: 36415; 80053; 83036; 84443; 85025; 85610

== ENCOUNTER 2021-12-11 11:22 | Outpatient (CLI) | payer MEDICARE, BC ==
--- NOTE | 2021-12-11 17:35 | XRAY Report ---
PROCEDURE: Chest 2 View X-Ray INDICATIONS: COUGH,EMPHYSEMA TECHNIQUE: 2 view(s) of the chest. COMPARISON: None. FINDINGS: Surgical changes and devices: Pacemaker. Lungs and pleura: No pleural effusions or pneumothorax. Lungs are clear. Mediastinum: Mediastinal contours are normal. Heart size is enlarged. Bones and chest wall: No suspicious bony abnormalities. Soft tissues appear unremarkable. IMPRESSION: No acute pulmonary process. Reviewed by: Shannon Jennings MD on 12/11/2021 5:33 PM PDT Approved by: Shannon Jennings MD on 12/11/2021 5:33 PM PDT Station ID: [id number]
== END 2021-12-11 11:23 | disposition home or self-care (01) ==
LOC: DI 11:22
PROVIDERS: ATTEND Internal Medicine
DX: R05.8 Other specified cough (principal); J43.9 Emphysema, unspecified; I48.21 Permanent atrial fibrillation; R73.03 Prediabetes; R63.5 Abnormal weight gain; Z79.01 Long term (current) use of anticoagulants
CPT/HCPCS: 36415; 80053; 83036; 84443; 85025; 85610

== ENCOUNTER 2022-01-23 12:29 | Outpatient (CLI) | payer MEDICARE, BC | END 2022-01-23 12:30 | disposition home or self-care (01) | LOC: LAB 12:29 | PROVIDERS: ATTEND Pharmacist | DX: I48.91 Unspecified atrial fibrillation (principal); Z79.01 Long term (current) use of anticoagulants | CPT/HCPCS: 36416; 85610 ==

== ENCOUNTER 2022-03-13 14:52 | Outpatient (CLI) | payer MEDICARE, BC | END 2022-03-13 14:53 | disposition home or self-care (01) | LOC: LAB 14:52 | PROVIDERS: ATTEND Pharmacist | DX: I48.91 Unspecified atrial fibrillation (principal); Z79.01 Long term (current) use of anticoagulants | CPT/HCPCS: 36416; 85610 ==

== ENCOUNTER 2022-03-30 11:31 | Outpatient (CLI) | payer MEDICARE, BC | END 2022-03-30 11:32 | disposition home or self-care (01) | LOC: LAB 11:31 | PROVIDERS: ATTEND Pharmacist | DX: I48.91 Unspecified atrial fibrillation (principal); Z79.01 Long term (current) use of anticoagulants | CPT/HCPCS: 36416; 85610 ==

== ENCOUNTER 2022-05-07 08:00 | Outpatient (CLI) | payer MEDICARE, BC ==
[2022-05-07 14:57] LABS: BASOPHILS % (AUTO) 0.5 %; EOSINOPHILS % (AUTO) 0.7 %; HCT - HEMATOCRIT 41.5 % (42.0-52.0); MEAN CORPUSCULAR HEMOGLOBIN 34.4 pg (27.0-31.0); MEAN CORPUSCULAR HGB CONC 33.7 g/dL (32.0-36.0); MEAN PLATELET VOLUME 10.3 fL (7.4-11.4); RED BLOOD COUNT 4.07 10^6/uL (4.70-6.10); WHITE BLOOD COUNT 9.2 x10^3/uL (4.8-10.8)
[2022-05-07 15:03] LABS: LYMPHOCYTES % (AUTO) 29.2 %; MONOCYTES % (AUTO) 6.4 %; PLT - PLATELET COUNT 241 10^3/uL (130-450); RED CELL DISTRIBUTION WIDTH 13.7 % (12.0-15.0)
[2022-05-07 15:06] LABS: ABNORMAL LYMPHS % (MANUAL) 0 %; BAND NEUTROPHILS % (MANUAL) 0 %
[2022-05-07 15:13] LABS: ALBUMIN 3.9 g/dL (3.2-5.5); ALBUMIN/GLOBULIN RATIO 1.5 (1.0-2.2); BILIRUBIN,TOTAL 0.8 mg/dL (0.2-1.0); POTASSIUM 4.3 mmol/L (3.5-5.0); TOTAL PROTEIN 6.5 g/dL (6.7-8.2)
[2022-05-07 15:27] LABS: THYROID STIMULATING HORMONE 2.73 uIU/mL (0.34-5.60)
[2022-05-07 15:47] LABS: BASOPHILS # (MANUAL) 0.1 10^3/uL (0-0.1); BASOPHILS % (MANUAL) 1 %; EOSINOPHILS # (MANUAL) 0.1 10^3/uL (0-0.7); LYMPHOCYTES # (MANUAL) 2.8 10^3/uL (1.5-3.5); LYMPHOCYTES % (MANUAL) 14 %; MONOCYTES # (MANUAL) 0.2 10^3/uL (0.0-1.0); NEUTROPHILS # (MANUAL) 6.1 10^3/uL (1.5-6.6); REACTIVE LYMPHS % (MANUAL) 16 %
[2022-05-07 15:48] LABS: DIFFERENTIAL COMMENT MANUAL DIFFERENTIAL; PLATELET ESTIMATE, MANUAL NORMAL (130-450,000) (NORMAL); PLATELET MORPHOLOGY NORMAL APPEARANCE (NORMAL); RBC MORPHOLOGY (MULTIPLE) 1+ MACROCYTOSIS (NORMAL); WBC MORPHOLOGY (MULTIPLE) NORMAL APPEARANCE (NORMAL)
[2022-05-07 20:13] LABS: ESTIMATED AVERAGE GLUCOSE 131 mg/dL (70-100); HEMOGLOBIN A1c% 6.2 % (4.27-6.07)
== END 2022-05-07 23:59 | disposition home or self-care (01) ==
LOC: LAB 08:00
PROVIDERS: ATTEND Internal Medicine
DX: R73.03 Prediabetes (principal); Z13.220 Encounter for screening for lipoid disorders; I48.21 Permanent atrial fibrillation; Z79.01 Long term (current) use of anticoagulants
CPT/HCPCS: 36415; 80053; 80061; 83036; 83721; 84443; 85025; 85610

== ENCOUNTER 2022-05-22 14:15 | Outpatient (CLI) | payer MEDICARE, BC | END 2022-05-22 14:16 | disposition home or self-care (01) | LOC: LAB 14:15 | PROVIDERS: ATTEND Pharmacist | DX: I48.91 Unspecified atrial fibrillation (principal); Z79.01 Long term (current) use of anticoagulants | CPT/HCPCS: 36416; 85610 ==